=== PATIENT | female | born 1965 | race Caucasian/White ===

== ENCOUNTER 2017-08-07 09:18 | Emergency (ER) | payer BC, OTHER, SELFPAY ==
[2017-08-07 09:41] VITALS: BP 125/71; PULSE 105; RESP 20; TEMP 37.4; O2SAT 96; BMI 30.7
[2017-08-07 09:47] LABS: Apearance,Urine Clear (Clear); Bilirubin,Urine Negative (Negative); Blood, Urine Trace (Negative); Color,Urine Yellow (Yellow); Glucose,Urine (UA) Negative (Negative); Ketones,Urine Negative (Negative); PH,Urine 6.5 (5.0-8.5); Protein,Urine Negative (Negative); Specific Gravity, Urine 1.005 (1.005-1.030); UTC Influenza A Antigen Negative (Negative); UTC Influenza B Antigen Negative (Negative); UTC Leukocyte Esterase,Urine Trace (Negative); UTC Nitrate,Urine Negative (Negative); Urobilinogen,Urine 0.2 EU/dl (0.2)
--- NOTE | 2017-08-07 09:48 | HMH.EDUTC ---
[facility] Disposition Clinical Impression: UTI (urinary tract infection) Qualifiers: Urinary tract infection type: site unspecified Hematuria presence: with hematuria Qualified Code(s): N39.0 - Urinary tract infection, site not specified; R31.9 - Hematuria, unspecified Disposition: Home, Self-Care Condition on Discharge: Good Instructions: Urinary Tract Infection, DI for Urinary Tract Infection (UTI), Cough Additional Instructions: *Increase fluids. Water not Soda or Tea *Start antibiotic immediately and be sure to take as ordered for the FULL length of time although you should start to see improvement over the next 48 hours *Pyridium as needed Remember this medication will turn your urine [place]. This is normal but it will stain what ever it gets on *You should not use Pyridium for more than 48 hours. If so , follow up with your primary physician to review urine culture and ensure that antibiotic is adequate for infection *Be SURE to follow up anytime for new or worsening symptoms. AND in 48 hours for urine culture results AND in 10-14 days to repeat UA to ensure infection is resolved and blood no longer present *Be sure to let your PCP know that we sent urine cultures from the [facility] so they can follow up to ensure that you area the on the correct antibiotic Prescriptions: Dextromethorphan Polistirex [Delsym] 10 ml PO Q12H PRN #200 aristeo.er.12h PRN Reason: Cough Sulfamethoxazole/Trimethoprim [Bactrim DS tablet] 1 each PO BID #20 tablet Referrals: Angel Hrae MD [Primary Care Provider] - Time of Disposition: 10:02 Medical Decision Making Vital Signs: 08/07/17 09:41 Temperature 99.4 F Temperature Source Temporal Artery Scan Pulse Rate [Left Brachial] 105 H Respiratory Rate 20 Blood Pressure [Left Arm] 125/71 Blood Pressure Mean [Left Arm] 89 Blood Pressure Source [Left Arm] Automatic Cuff Blood Pressure Position [Left Arm] Supine 02 Sat by Pulse Oximetry 96 Oxygen Delivery Method Room Air - Lab Data Lab Results 08/07/17 09:42: Urine Color Yellow, Urine Appearance Clear, Urine pH 6.5, Ur Specific [place] 1.005, Urine Protein Negative, Urine Glucose (UA) Negative, Urine Ketones Negative, Urine Blood Trace, Urine Nitrate Negative, Urine Bilirubin Negative, Urine Urobilinogen 0.2, Ur Leukocyte Esterase Trace, Influenza Type A Ag Negative, Influenza Type B Ag Negative - Abraham Inquiry Pt receiving controlled substance: No Abraham was queried for this patient: No [facility] HPI - General Stated complaint: head congestion cough achey Mode of Arrival: Ambulatory Source of Information: Patient Limitations: No Limitations Description of Symptoms (Recalled from Triage Doc. by RN): C/O COUGH, CONGESTION, BODYACHES HEENT Symptoms (Recalled from RN notes): No Resp Symptoms (Recalled from RN notes): Yes (COUGH AND CONGESTION) Skin Symptoms (Recalled from RN notes): No MS Symptoms (Recalled from RN notes): Yes (BODYACHES) Functional Status (Recalled from RN notes): N/A - History of Present Illness Provider Complaint: Patient state that she has been having the feeling of urgency and freqent urination State that she thinks she has a UTI States that she also thinks she may have the flu Having coughing stuffy nose and body aches that began on Saturday and have not improved 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
--- NOTE | 2017-08-07 09:57 | ED_ITS ---
[facility] [place] Clinical Impression: UTI (urinary tract infection) Qualifiers: Urinary tract infection type: site unspecified Hematuria presence: with hematuria Qualified Code(s): N39.0 - Urinary tract infection, site not specified ; R31.9 - Hematuria, unspecified Disposition: Home, Self-Care Condition on Discharge: Good Instructions: Urinary Tract Infection, DI for Urinary Tract Infection (UTI), Cough Additional Instructions: *Increase fluids. Water not Soda or Tea *Start antibiotic immediately and be sure to take as ordered for the FULL length of time although you should start to see improvement over the next 48 hours *Pyridium as needed Remember this medication will turn your urine [place]. This is normal but it will stain what ever it gets on *You should not use Pyridium for more than 48 hours. If so , follow up with your primary physician to review urine culture and ensure that antibiotic is adequate for infection *Be SURE to follow up anytime for new or worsening symptoms. AND in 48 hours for urine culture results AND in 10-14 days to repeat UA to ensure infection is resolved and blood no longer present *Be sure to let your PCP know that we sent urine cultures from the [facility] so they can follow up to ensure that you area the on the correct antibiotic Prescriptions: Dextromethorphan Polistirex [Delsym] 10 ml PO Q12H PRN #200 aristeo.er.12h PRN Reason: Cough Sulfamethoxazole/Trimethoprim [Bactrim DS tablet] 1 each PO BID #20 tablet Referrals: Angel Hare MD [Primary Care Provider] - Time of Disposition: 10:02 Medical Decision Making Vital Signs: 08/07/17 09:41 Temperature 99.4 F Temperature Source Temporal Artery Scan Pulse Rate [Left Brachial] 105 H Respiratory Rate 20 Blood Pressure [Left Arm] 125/71 Blood Pressure Mean [Left Arm] 89 Blood Pressure Source [Left Arm] Automatic Cuff Blood Pressure Position [Left Arm] Supine 02 Sat by Pulse Oximetry 96 Oxygen Delivery Method Room Air - Lab Data Lab Results 08/07/17 09:42: Urine Color Yellow, Urine Appearance Clear, Urine pH 6.5, Ur Specific [place] 1.005, Urine Protein Negative, Urine Glucose (UA) Negative, Urine Ketones Negative, Urine Blood Trace, Urine Nitrate Negative, Urine Bilirubin Negative, Urine Urobilinogen 0.2, Ur Leukocyte Esterase Trace, Influenza Type A Ag Negative, Influenza Type B Ag Negative - Abraham Inquiry Pt receiving controlled substance: No Abraham was queried for this patient: No [facility] [place] - General Stated complaint: head congestion cough achey Mode of Arrival: Ambulatory Source of Information: Patient Limitations: No Limitations Description of Symptoms (Recalled from Triage Doc. by RN): C/O COUGH, CONGESTION , BODYACHES HEENT Symptoms (Recalled from RN notes): No Resp Symptoms (Recalled from RN notes): Yes (COUGH AND CONGESTION) Skin Symptoms (Recalled from RN notes): No MS Symptoms (Recalled from RN notes): Yes (BODYACHES) Functional Status (Recalled from RN notes): N/A - History of Present Illness Provider Complaint: Patient state that she has been having the feeling of urgency and freqent urination State that she thinks she has a UTI States that she also thinks she may have the flu Having coughing stuffy nose and body aches that began on Saturday and have not improved 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
== END 2017-08-07 10:10 | disposition home or self-care (01) ==
PROVIDERS: Emergency Provider Nurse Practitioner; PCP Internal Medicine Adolescent Medicine
DX: N39.0 Urinary tract infection, site not specified (principal); I10 Essential (primary) hypertension; M05.9 Rheumatoid arthritis with rheumatoid factor, unspecified
CPT/HCPCS: 81003; 87804; 99202

== ENCOUNTER → 2017-08-12 16:41 | Outpatient (CLI) | payer BC, OTHER, SELFPAY ==
[2017-08-12 16:46] LABS: Microscopic, Urine URINE MICROSCOPIC (MICROSCOPIC)
[2017-08-12 17:21] LABS: Appearance,Urine Clear (Clear); Color,Urine Yellow (Yellow)
[2017-08-12 17:22] LABS: Bilirubin,Urine Negative (Negative); Blood, Urine Trace (Negative); Glucose,Urine (UA) Negative (Negative); Ketones,Urine Negative (Negative); Leukocyte Esterase,Urine Negative (Negative); Nitrate,Urine Negative (Negative); Protein,Urine Negative (Negative); Specific Gravity, Urine < 1.005 (1.005-1.030); Urobilinogen,Urine 0.2 EU/dl (0.2)
[2017-08-12 18:06] LABS: Bacteria,Urine Trace /lpf; RBC,Urine Occasional #/hpf (0-3)
== END ==
PROVIDERS: PCP Internal Medicine Adolescent Medicine; Visit Provider Internal Medicine Adolescent Medicine
DX: R39.15 Urgency of urination (principal); R10.30 Lower abdominal pain, unspecified
CPT/HCPCS: 81001; 87086

== ENCOUNTER → 2019-02-13 07:04 | Outpatient (CLI) | payer BC, SELFPAY ==
[2019-02-13 08:24] LABS: Albumin Level 3.6 gm/dL (3.4-5.0); Albumin/Globulin Ratio 1.1 (1.1-1.8); Aspartate Amino Transferase 16 U/L (15-37); Globulin 3.2 gm/dl (1.3-3.2); HDL Cholesterol 66 mg/dL (29-89); Total Protein,Serum 6.8 gm/dL (6.4-8.2)
[2019-02-13 08:25] LABS: Chloride 107 mmol/L (98-107)
[2019-02-13 08:36] LABS: Basophils # 0.1 K/mm3 (0-0.2); Basophils % 1.2 % (0.1-2.0); Eosinophils # 0.1 K/mm3 (0.0-0.4); Eosinophils % 3.1 % (0.1-12.0); Hematocrit 40.4 % (37.0-47.0); Hemoglobin 12.8 g/dL (12.2-16.2); Lymphocytes # 1.5 K/mm3 (0.7-4.5); Lymphocytes % 41.6 % (10-50); Mean Corpuscular HGB Conc 31.8 g/dL (31.8-35.4); Mean Corpuscular Hemoglobin 28.9 pg (27.0-31.2); Mean Corpuscular Volume 90.9 fl (81-99); Mean Platelet Volume 7.2 fl (7.4-10.4); Monocytes # 0.2 K/mm3 (0.1-1.0); Monocytes % 6.4 % (1.7-9.3); Neutrophils # 1.8 K/mm3 (1.8-7.8); Neutrophils % 47.6 % (37.0-80.0); Platelet Count 297 K/mm3 (142-424); Red Blood Count 4.45 M/mm3 (4.20-5.40); Red Cell Distribution Width 13.7 % (11.5-17.5); White Blood Count 3.7 K/mm3 (4.8-10.8)
[2019-02-13 08:37] LABS: Alanine Aminotransferase 23 U/L (12-78); Alkaline Phosphatase 113 U/L (46-116); Anion Gap 9.9 mEq/L (5-15); Bilirubin,Total 0.3 mg/dL (0.2-1.0); Blood Urea Nitrogen 11 mg/dL (7-18); Calcium 9.3 mg/dL (8.5-10.1); Carbon Dioxide 28 mmol/L (21.0-32.0); Chol/HDL Ratio 2.6 (1-3.5); Cholesterol 169 mg/dL (140-200); Creatinine,Serum 0.82 mg/dL (0.55-1.02); Estimated Glomerular Filt Rate 73 ml/min (>60); GFR (African American) 88 ML/MIN (>60); Glucose 105 mg/dL (74-106); LDL Cholesterol 85 mg/dL (0-130); Potassium 4.9 mmoL/L (3.5-5.1); Sodium 140 mmol/L (136-145); Triglycerides 91 mg/dL (30-200); VLDL Cholesterol 18 mg/dL (0-40)
[2019-02-14 18:16] LABS: Vitamin B12 334 pg/mL (232-1245); Vitamin D 25 Hydroxy 31.9 ng/mL (30.0-100.0)
== END ==
PROVIDERS: Visit Provider Internal Medicine Adolescent Medicine
DX: I10 Essential (primary) hypertension (principal); E53.8 Deficiency of other specified B group vitamins; M05.759 Rheumatoid arthritis with rheumatoid factor of unspecified hip without organ or systems involvement
CPT/HCPCS: 36415; 80053; 80061; 82607; 82652; 85025

== ENCOUNTER → 2020-04-20 07:07 | Outpatient (CLI) | payer BC, SELFPAY ==
[2020-04-20 10:04] LABS: 25-OH Vitamin D, Total 48.2 ng/mL (30-100)
[2020-04-20 10:38] LABS: Vitamin B12 416 pg/mL (239-931)
[2020-04-21 17:28] LABS: Basophils # 0.1 K/mm3 (0-0.2); Basophils % 1.6 % (0.1-2.0); Eosinophils # 0.1 K/mm3 (0.0-0.4); Eosinophils % 1.6 % (0.1-12.0); Hematocrit 43.2 % (37.0-47.0); Hemoglobin 13.8 g/dL (12.2-16.2); Lymphocytes # 1.6 K/mm3 (0.7-4.5); Lymphocytes % 45.7 % (10-50); Mean Corpuscular HGB Conc 31.8 g/dL (31.8-35.4); Mean Corpuscular Hemoglobin 31.5 pg (27.0-31.2); Mean Platelet Volume 9.4 fl (7.4-10.4); Monocytes # 0.2 K/mm3 (0.1-1.0); Neutrophils # 1.6 K/mm3 (1.8-7.8); Neutrophils % 46.2 % (37.0-80.0); Platelet Count 288 K/mm3 (142-424); Red Blood Count 4.37 M/mm3 (4.20-5.40); White Blood Count 3.6 K/mm3 (4.8-10.8)
[2020-04-21 17:33] LABS: Alanine Aminotransferase 19 U/L (12-78); Albumin Level 4.1 g/dl (3.5-5.0); Albumin/Globulin Ratio 1.6 (1.1-1.8); Alkaline Phosphatase 86 U/L (38-126); Anion Gap 11.6 mEq/L (5-15); Aspartate Amino Transferase 34 U/L (14-36); Bilirubin,Total 0.4 mg/dl (0.2-1.3); Blood Urea Nitrogen 9 mg/dl (7-17); Calcium 9.3 mg/dl (8.4-10.2); Carbon Dioxide 28 mmol/L (22.0-30.0); Chloride 106 mmol/L (98-107); Chol/HDL Ratio 2.2 (1-3.5); Cholesterol 157 mg/dl (140-200); Estimated Glomerular Filt Rate 74 ml/min (>60); GFR (African American) 90 ML/MIN (>60); Globulin 2.6 g/dL (1.3-3.2); Glucose 103 mg/dl (74-100); HDL Cholesterol 71 mg/dl (40-60); Potassium 5.6 mmoL/L (3.5-5.1); Sodium 140 mmol/L (136-145); Total Protein,Serum 6.7 g/dl (6.3-8.2); Triglycerides 93 mg/dl (30-150); VLDL Cholesterol 19 mg/dL (0-40)
[2020-04-21 17:45] LABS: Direct LDL Cholesterol 71.11 mg/dL (100-129)
== END ==
PROVIDERS: Nurse Practitioner Family; Visit Provider Internal Medicine Adolescent Medicine
DX: M05.79 Rheumatoid arthritis with rheumatoid factor of multiple sites without organ or systems involvement (principal); I10 Essential (primary) hypertension; L65.9 Nonscarring hair loss, unspecified
CPT/HCPCS: 36415; 80053; 80061; 82306; 82607; 84443; 85025

== ENCOUNTER → 2020-05-20 11:38 | Outpatient (CLI) | payer BC, SELFPAY ==
[2020-05-20 12:19] LABS: Erythrocyte Sedimentation Rate 18 mm/hr (0-30)
[2020-05-20 13:06] LABS: Iron 84 ug/dL (37-170)
[2020-05-20 13:15] LABS: Total Iron Binding Capacity 363 ug/dL (265-497)
[2020-05-20 13:43] LABS: Ferritin 64.8 ng/ml (11.1-264)
[2020-05-20 15:24] LABS: Folate > 20.00 ng/mL
== END ==
PROVIDERS: Visit Provider Nurse Practitioner Family
DX: M05.79 Rheumatoid arthritis with rheumatoid factor of multiple sites without organ or systems involvement (principal); L65.9 Nonscarring hair loss, unspecified
CPT/HCPCS: 36415; 82728; 82746; 83540; 83550; 85651

== ENCOUNTER 2020-07-18 15:06 | Emergency (ER) | payer BC, SELFPAY ==
[2020-07-18 15:10] VITALS: BP 95/55; PULSE 117; RESP 20; TEMP 36.9; O2SAT 95; BMI 30.7
[2020-07-18 15:15] VITALS: BP 130/80; PULSE 104
[2020-07-18 15:40] LABS: UTC Influenza A Antigen Negative (Negative); UTC Strep Screen (Rapid) Negative (Negative)
[2020-07-18 15:41] LABS: UTC Influenza B Antigen Negative (Negative)
--- NOTE | 2020-07-18 15:44 | HMH.EDUTC ---
[facility] Disposition Clinical Impression: Exposure to COVID-19 virus Disposition: Home, Self-Care Condition on Discharge: Good Instructions: DI for COVID-19 (Suspected or Confirmed ), COVID-19 Viral Test, COVID-19: Testing and Tracing, Preventing the Spread of Coronavirus Discharge Instructions Additional Instructions: *Monitor Temp, Over the counter Motrin or Tylenol as directed/as needed Tylenol every 4 hours and Motrin every 6 hours (as long as your family doctor has told you that you can take it) for fever or pain. and straight to ER if unable to lower temp less than 101.0 after medication given *Warm salt water gargles may help to soothe the throat *Throat Lozenges *Warm fluids like tea with honey may help to soothe the throat *Sleep elevated *Humidifier/Vaporizer Follow up IMMEDIATELY for new or worsening symptoms or no Noticeable improvement over the next 48-72 hours. 911 for difficulty breathing or swallowing You were tested for today for COVID19 your test result should be back in the next 24-48 hours, you may call to the [facility] to see if your test results are back in the next 48 hours [phone] [facility] hours are 9am-9pm You was given a handout with instructions for Self Quarantine and Self isolation for while you wait on test results and what to do if they are positive If you are positive the Health Dept will be contacting you also Referrals: Angel Hare MD [Primary Care Provider] - Time of Disposition: 16:53 Medical Decision Making - Abraham Inquiry Pt receiving controlled substance: No Abraham was queried for this patient: No Vital Signs: 07/18/20 15:10 07/18/20 15:15 07/18/20 16:30 Temperature 98.4 F Temperature Source Oral Pulse Rate Pulse Rate [Right Brachial] 117 H 104 H 94 H Respiratory Rate 20 Blood Pressure Blood Pressure [Right Arm] 95/55 L 130/80 124/92 H Blood Pressure Mean [Right Arm] 68 96 102 Blood Pressure Source [Right Arm] Automatic Cuff Automatic Cuff Automatic Cuff Blood Pressure Position [Right Arm] Sitting Sitting 02 Sat by Pulse Oximetry 95 Oxygen Delivery Method Room Air 07/18/20 16:35 Temperature 98.4 F Temperature Source Pulse Rate 94 H Pulse Rate [Right Brachial] Respiratory Rate 20 Blood Pressure 124/92 H Blood Pressure [Right Arm] Blood Pressure Mean [Right Arm] Blood Pressure Source [Right Arm] Blood Pressure Position [Right Arm] 02 Sat by Pulse Oximetry Oxygen Delivery Method - Lab Data Lab results reviewed: Yes: I reviewed the patient's lab results. Lab Results 07/18/20 15:18: Influenza Type A Ag Negative, Influenza Type B Ag Negative 07/18/20 15:18: Strep Scn Rapid Clinic Negative Orders (Tests/Meds): ED MEDICATIONS Generic Name Dose Route Start Last Admin Trade Name Bertha PRN Reason Stop Dose Admin Sodium Chloride 1,000 mls @ 999 mls/hr 07/18/20 16:00 07/18/20 15:57 Sod Chlor 0.9% 1000ml Bag IV 07/18/20 17:00 999 mls/hr .Q1H1M ALBERTO Administration ORDERS Category Date Time Status Covid-19 Nasal PCR Sendout P&C Stat Lab 07/18/20 15:15 Received Strep Screen Confirmation Stat Micro 07/18/20 15:18 Received Medical Decision Narrative: Ordered fluids infusing patient HR down to 94 Bp 124-92 Patient states that she is feeling a little better [facility] HPI - General Stated complaint: covid test Time Seen by Provider: 07/18/20 15:44 Mode of Arrival: Ambulatory Source of Information: Patient Limitations: No Limitations Description of Symptoms (Recalled from Triage Doc. by RN): PATIENT C/O FEVER, DRY COUGH, AND SORE THROAT. POSSIBLE EXPOSURE TO COVID HEENT Symptoms (Recalled from RN notes): Yes Resp Symptoms (Recalled from RN notes): Yes Skin Symptoms (Recalled from RN notes): No MS Symptoms (Recalled from RN notes): No Functional Status (Recalled from RN notes): WNL - History of Present Illness Provider Complaint: Patient states that she was recently around her grand daughter that recently tested posi
[2020-07-18 16:30] VITALS: BP 124/92; PULSE 94
[2020-07-18 16:35] VITALS: BP 124/92; PULSE 94; RESP 20; TEMP 36.9; O2SAT 95
[2020-07-20 09:11] LABS: Covid-19 Nasal PCR Sendout P&C POSITIVE
--- NOTE | 2020-07-20 09:29 | PC.NURSE ---
patient notified of positive covid test results, patient asked about heart rate being over 100, 107 is the highest, Jerome confirmed that this was normal due to being sick, patient stated understanding
== END 2020-07-18 17:15 | disposition home or self-care (01) ==
PROVIDERS: Emergency Provider Nurse Practitioner; PCP Internal Medicine Adolescent Medicine
DX: U07.1 COVID-19 (principal); I10 Essential (primary) hypertension; R51.9 Headache, unspecified; Z79.899 Other long term (current) drug therapy
CPT/HCPCS: 87804; 87880; 96365; 99202; U0004

== ENCOUNTER → 2020-08-24 13:23 | Outpatient (POV) | payer BC, SELFPAY | DX: Z00.00 Encounter for general adult medical examination without abnormal findings (principal) ==

== ENCOUNTER → 2020-10-24 13:03 | Outpatient (CLI) | payer BC, SELFPAY ==
--- NOTE | 2020-10-24 13:09 | XR_ITS ---
PROCEDURE: XR FOOT LT MIN 3V CLINICAL INDICATION: LT FOOT PAIN COMPARISON: No exams were available for comparison FINDINGS: No acute fractures or dislocations. Bone density is normal. The tarsals, metatarsals and phalanges are unremarkable. No significant soft tissue abnormality. Calcaneal spur is noted. IMPRESSION: Calcaneal spur. Otherwise unremarkable. Dictated by: Irais Maharaj 10/24/2020 13:40 Irais Maharaj in [place] 10/24/2020 13:40
== END ==
PROVIDERS: PCP Internal Medicine Adolescent Medicine; Visit Provider Internal Medicine Adolescent Medicine
DX: M79.672 Pain in left foot (principal)
CPT/HCPCS: 73630

== ENCOUNTER → 2021-01-20 15:25 | Outpatient (CLI) | payer BC, SELFPAY ==
--- NOTE | 2021-01-20 15:29 | XR_ITS ---
PROCEDURE: XR KNEE RT 3V CLINICAL INDICATION: RT ANTERIOR KNEE PAIN COMPARISON: No exams were available for comparison FINDINGS: No fracture or dislocation. No lytic or blastic change. There is normal mineralization. Moderate osteoarthritic changes are present involving the medial compartment and patellofemoral joint. There is a small round calcific density at approximately 4 mm at the interspinous region and could be due to small loose body. Other findings:None. IMPRESSION: Osteoarthritic change with possible small loose Dictated by: Vipin Mckay MD 01/20/2021 15:58 Vipin Mckay MD in [place] 01/20/2021 15:58
== END ==
PROVIDERS: PCP Nurse Practitioner Family; Visit Provider Nurse Practitioner Family
DX: M25.561 Pain in right knee (principal)
CPT/HCPCS: 73562

== ENCOUNTER → 2021-01-27 13:26 | Outpatient (CLI) | payer BC, SELFPAY ==
--- NOTE | 2021-01-27 13:29 | MR_ITS ---
PROCEDURE: MR KNEE RT WO CON CLINICAL INDICATION: RIGHT KNEE PAIN Hx RA. Pain superior to patella. Medial sided knee pain. Pain when bending. Symptoms [id number]. No injury or trauma. Prior x-ray 01/20/21. COMPARISON: CR XR KNEE RT 3V from 01/20/2021 TECHNIQUE: Routine multiplanar multi echo sequences are performed without gadolinium enhancement. FINDINGS: No cruciate ligaments appear intact. Unremarkable collateral ligaments. No definite meniscal tear. There are osteoarthritic changes with decrease in the joint space medially and laterally as well as at the patellofemoral joint. There is moderate to severe thinning of the patellar cartilage with small size knee joint effusion noted. Osteophytes are present at the distal femur and patella and proximal tibia. There is an 8 x 6 mm area of decreased T1 and T2 signal along the posterior aspect of the knee joint. This lies along the posterior and lateral aspect of the medial tibial plateau and may represent a loose body. This is posterior to the base of the posterior cruciate ligament and anterior to the posterior knee joint capsule. This has a lobular appearance and may represent a synovial osteo chondroma. IMPRESSION: 1. No internal derangement apparent. 2. Moderate osteoarthritic changes as detailed above with small knee joint effusion 3. 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
== END ==
PROVIDERS: PCP Nurse Practitioner Family; Visit Provider Nurse Practitioner Family
DX: M25.561 Pain in right knee (principal)
CPT/HCPCS: 73721

== ENCOUNTER → 2021-06-27 10:55 | Outpatient (POV) | payer BC, SELFPAY | PROVIDERS: Visit Provider Dermatology | DX: Z00.00 Encounter for general adult medical examination without abnormal findings (principal) ==

== ENCOUNTER → 2021-08-09 07:05 | Outpatient (CLI) | payer BC, SELFPAY ==
--- NOTE | 2021-08-09 07:09 | XR_ITS ---
FINAL REPORT CLINICAL HISTORY: PAIN IN RIGHT SHOULDER FINDINGS: RIGHT SHOULDER Three views demonstrate no acute fracture or dislocation. There is mild acromioclavicular and glenohumeral joint degenerative change. The visualized bony structures are well aligned. No soft tissue abnormality is seen. IMPRESSION: Mild degenerative changes. Reviewed, Interpreted and Dictated by Lenin Santos III, MD Transcribed by Lupis Gill Authenticated by Lenin Santos III, MD on 08/09/2021 09:56:04 AM [facility]
== END ==
PROVIDERS: PCP Nurse Practitioner Family; Visit Provider Nurse Practitioner Family
DX: M25.511 Pain in right shoulder (principal); G89.29 Other chronic pain
CPT/HCPCS: 73030

== ENCOUNTER → 2021-09-19 11:07 | Outpatient (POV) | payer BC, SELFPAY | PROVIDERS: Visit Provider Dermatology | DX: Z00.00 Encounter for general adult medical examination without abnormal findings (principal) ==

== ENCOUNTER → 2021-09-26 12:53 | Outpatient (CLI) | payer BC, SELFPAY ==
--- NOTE | 2021-09-26 12:59 | MR_ITS ---
FINAL REPORT CLINICAL HISTORY: FAMILY HX OF BRAIN ANEURYSM, HEADACHES PRIOR MRI BRAIN 08-29-16 FINDINGS: Multiple projection images of the brain arterial vasculature were obtained without contrast. The raw data images were also reviewed. The distal internal carotid, distal vertebral and basilar arteries have an unremarkable appearance without evidence of significant stenosis or occlusion. The proximal anterior, middle and posterior cerebral arteries have an unremarkable appearance. There is no evidence of significant stenosis or major branch occlusion. No aneurysm or vascular malformation is identified. IMPRESSION: Unremarkable MR angiogram of the head. Reviewed, Interpreted and Dictated by Lenin Santos III, MD Transcribed by Lupis Gill Authenticated by Lenin Santos III, MD on 09/26/2021 02:09:15 PM [facility]
== END ==
PROVIDERS: PCP Nurse Practitioner Family; Visit Provider Nurse Practitioner Family
DX: Z82.49 Family history of ischemic heart disease and other diseases of the circulatory system (principal)
CPT/HCPCS: 70544

== ENCOUNTER → 2022-12-11 08:46 | Outpatient (POV) | payer BC, SELFPAY | PROVIDERS: Visit Provider Dermatology | DX: Z00.00 Encounter for general adult medical examination without abnormal findings (principal) ==

== ENCOUNTER → 2023-01-08 08:30 | Outpatient (POV) | payer BC, SELFPAY | PROVIDERS: Visit Provider Dermatology | DX: Z00.00 Encounter for general adult medical examination without abnormal findings (principal) ==

== ENCOUNTER 2023-06-16 09:07 | Emergency (ER) | payer OTHER, SELFPAY ==
[2023-06-16 09:25] VITALS: BP 134/98; PULSE 108; RESP 18; TEMP 37.2; O2SAT 96; BMI 31.9
--- NOTE | 2023-06-16 09:30 | EXP.UTC ---
Discharge Plan Disposition Patient Disposition: Home, Self-Care Condition: Good Prescriptions Prescriptions: New azithromycin [Zithromax] 250 mg tablet 250 mg PO UD DOSE PK Qty: 6 0RF Rx Instructions: Take two (2) tablets today, then one (1) tablet days #2 thru #5 benzonatate [benzonatate] 100 mg capsule 100 mg PO TIDP PRN (Reason: Cough) Qty: 30 0RF methylprednisolone 4 mg Tablets,Dose Pack 4 mg PO DIRECTED Qty: 21 0RF Referrals Follow up/Referrals: Goldie Rowan APRN [Primary Care Provider] - See instructions Activity Restrictions/Add. Instructions Additional Instructions/Restrictions: Drink plenty of fluids. Take tylenol or ibuprofen for pain or fever. Take the medications as directed. Follow up with your regular doctor. GO TO THE ER FOR ANY WORSENING SYMPTOMS Clinical Impressions Clinical Impression: Sinusitis Instructions Patient Instructions: Sinusitis, DI for Sinusitis Discharge ED Provider: Jerome Castle [facility] [place] General Stated complaint: SORE THROAT, LT EAR SORE, FEVER Time Seen by Provider: 06/16/23 09:20 History of Present Illness Provider Complaint: She states that for the past 2 weeks she has had sinus congestion. She states that her symptoms are worsening. Related Data Previous Rx's Medication Instructions Recorded azithromycin 250 mg tablet 250 mg PO UD DOSE PK #6 tabs 06/16/23 (Zithromax) benzonatate 100 mg capsule 100 mg PO TIDP PRN Cough #30 caps 06/16/23 methylprednisolone 4 mg tablets in 4 mg PO DIRECTED #21 tabs 06/16/23 a dose pack Allergies Allergy/AdvReac Type Severity Reaction Status Date / Time ciprofloxacin [From CIPRO] Allergy Unknown SEIZURES Verified 06/16/23 09:38 [facility] Disclaimer: The information contained in this section may have been updated after the patient was seen, as this information can be updated by other users. Social History Smoking Status: Never smoker alcohol intake: never current occupational status: other Travel in the last 8 weeks: None ROS Obtained: Yes All systems reviewed & no additional complaints except as documented Constitutional Constitutional: Reports poor appetite Eyes Eyes: Reports system reviewed and no additional complaints, except as documented ENT Ears, Nose, Mouth, and Throat: Reports as per HPI Cardiovascular Cardiovascular: Reports system reviewed and no additional complaints, except as documented and Denies chest pain Respiratory Respiratory: Denies shortness of breath, Denies chest congestion, Reports cough, Denies stridor and Denies wheezing Gastrointestinal Gastrointestingal: Reports system reviewed and no additional complaints, except as documented; Denies abdominal pain, diarrhea or vomiting Musculoskeletal Musculoskeletal: Reports system reviewed and no additional complaints, except as documented and Denies arthralgias Integumentary/Breasts Skin/Breast: Reports system reviewed and no additional complaints, except as documented and Denies rash Neurologic Neurologic: Denies paresthesias Allergic/Immunologic Allergic/Immunologic: Denies wheezing Physical Exam General General appearance: alert and in no apparent distress Eye Eye exam: Present normal appearance, PERRL and EOMI ENT ENT exam: Present mucous membranes moist and normal external ear exam Expanded ENT Exam External ear exam: Present normal external inspection TM/Canal exam: Bilateral TM: erythema and bulging Nose exam: Absent sinus tenderness Nasal speculum exam: Bilateral: normal Mouth exam: Present normal external inspection; Absent drooling Teeth exam: Present normal inspection Throat exam: Present tonsillar erythema and tonsillomegaly Neck Neck exam: Present normal inspection, full ROM and trachea midline; Absent tenderness, lymphadenopathy or thyromegaly Chest Chest inspection: Present normal inspection and symmetric chest wall rise; Absent
[2023-06-16 09:41] LABS: UTC Strep Screen (Rapid) Negative (Negative)
[2023-06-16 10:09] VITALS: BP 134/98; PULSE 108; RESP 18; TEMP 37.2; O2SAT 96
== END 2023-06-16 10:09 | disposition home or self-care (01) ==
PROVIDERS: Emergency Provider Nurse Practitioner Family; PCP Nurse Practitioner Family
DX: J01.90 Acute sinusitis, unspecified (principal); R50.9 Fever, unspecified; R07.0 Pain in throat; H92.02 Otalgia, left ear
CPT/HCPCS: 87880; 99212; 99214; G0463

== ENCOUNTER 2023-06-16 14:56 | Emergency (ER) | payer OTHER, SELFPAY ==
[2023-06-16 14:57] VITALS: BP 146/101; PULSE 116; RESP 20; TEMP 36.9; O2SAT 94; BMI 31.9
--- NOTE | 2023-06-16 15:06 | ECG_ITS ---
APPROVED REPORT Exam: Resting ECG HR:112 bpm ECG Measurements Heart Rate 112 AXES LA 144 P 57 QRSd 103 QRS 26 QT 337 T 57 QTc 403 Conclusion SINUS TACHYCARDIA ABNORMAL RHYTHM ECG UNCONFIRMED REPORT Electronically signed by : Angel Hare MD 06/17/2023 17:28:16
[2023-06-16 15:07] VITALS: BP 146/101; PULSE 108; RESP 18; O2SAT 96
[2023-06-16 15:30] VITALS: BP 145/82; PULSE 108; RESP 20; O2SAT 96
[2023-06-16 15:30] LABS: Influenza A, PCR Not Detected (NotDetected); Influenza B, PCR Not Detected (NotDetected)
[2023-06-16 15:32] LABS: Basophils % 0.5 % (0.1-2.0); Eosinophils % 0.3 % (0.1-12.0); Hematocrit 42.3 % (37.0-47.0); Hemoglobin 14.4 g/dL (12.2-16.2); Lymphocytes # 0.7 K/mm3 (0.7-4.5); Lymphocytes % 12.7 % (10-50); Mean Corpuscular HGB Conc 34.1 g/dL (31.8-35.4); Mean Corpuscular Hemoglobin 31.6 pg (27.0-31.2); Mean Corpuscular Volume 92.8 fl (81-99); Mean Platelet Volume 7.5 fl (7.4-10.4); Monocytes # 0.3 K/mm3 (0.1-1.0); Monocytes % 5.6 % (1.7-9.3); Neutrophils # 4.5 K/mm3 (1.8-7.8); Neutrophils % 80.9 % (37.0-80.0); Platelet Count 245 K/mm3 (142-424); Red Blood Count 4.56 M/mm3 (4.20-5.40); Red Cell Distribution Width 14.2 % (11.5-17.5); White Blood Count 5.6 K/mm3 (4.8-10.8)
[2023-06-16 15:33] LABS: Chloride 99 mmol/L (98-107); Potassium 3.8 mmoL/L (3.5-5.1); Sodium 132 mmol/L (136-145)
[2023-06-16 15:36] LABS: Alanine Aminotransferase 19 U/L (12-78); Albumin Level 4.9 g/dl (3.5-5.0); Albumin/Globulin Ratio 1.6 (1.1-1.8); Alkaline Phosphatase 130 U/L (38-126); Anion Gap 12.8 mEq/L (5-15); Aspartate Amino Transferase 32 U/L (14-36); Bilirubin,Total 0.6 mg/dl (0.2-1.3); Blood Urea Nitrogen 10 mg/dl (7-17); Carbon Dioxide 24 mmol/L (22.0-30.0); Creatinine Clearance Estimated 123 mL/min (50-200); Estimated Glomerular Filt Rate 86 ml/min (>60); GFR (African American) 104 ML/MIN (>60); Globulin 3.1 g/dL (1.3-3.2)
[2023-06-16 15:37] LABS: Glucose 119 mg/dl (74-100)
--- NOTE | 2023-06-16 15:43 | CT_ITS ---
PROCEDURE INFORMATION: Exam: CTA Neck With Contrast Exam date and time: 06/16/2023 4:20 PM Age: 58 years old Clinical indication: Stroke-like symptoms; Headache; Additional info: Neck and back pain. L neck > R TECHNIQUE: Imaging protocol: Computed tomographic angiography of the neck with contrast. Exam focused on the cervical segments of the vasculature. 3D rendering (Not supervised by radiologist): MIP and/or 3D reconstructed images were created by the technologist. Radiation optimization: All CT scans at this facility use at least one of these dose optimization techniques: automated exposure control; mA and/or kV adjustment per patient size (includes targeted exams where dose is matched to clinical indication); or iterative reconstruction. Contrast material: ISOVUE 370; Contrast volume: 100 ml; Contrast route: INTRAVENOUS (IV); REPORTING DATA: Count of CT and Cardiac NM exams in prior 12 months: This patient has received 0 known CTs and 0 known cardiac nuclear medicine studies in the 12 months prior to the current study. COMPARISON: CT ANGIO CHEST PE PROTOCOL 06/16/2023 4:14 PM FINDINGS: Right common carotid artery: No stenosis. No dissection or occlusion. Right internal carotid artery: No stenosis of the extracranial segment. No dissection or occlusion. Right external carotid artery: No occlusion or stenosis of the origin. Left common carotid artery: No stenosis. No dissection or occlusion. Left internal carotid artery: No stenosis of the extracranial segment. No dissection or occlusion. Left external carotid artery: No occlusion or stenosis of the origin. Right vertebral artery: No stenosis. No dissection or occlusion. Left vertebral artery: No stenosis. No dissection or occlusion. Soft tissues: Normal. No significant soft tissue swelling. Bones/joints: No acute fracture. Lungs: Right upper lobe calcified granuloma. IMPRESSION: No stenosis or occlusion. REFERENCES: NASCET CRITERIA. The degree of stenosis in the cervical segment of the internal carotid artery is based on NASCET criteria. Normal is no stenosis. Mild is less than 50% stenosis. Moderate is 50-69% stenosis. Severe is 70% to 99% stenosis. Total occlusion is no detectable patent lumen.
--- NOTE | 2023-06-16 15:43 | CT_ITS ---
PROCEDURE INFORMATION: Exam: CTA Chest With Contrast Exam date and time: 06/16/2023 4:14 PM Age: 58 years old Clinical indication: Other: Back pain in thoracic area; Additional info: Tachy/neck pain/back pain TECHNIQUE: Imaging protocol: Computed tomographic angiography of the chest with contrast. Exam focused on the arteries. 3D rendering (Not supervised by radiologist): MIP and/or 3D reconstructed images were created by the technologist. Radiation optimization: All CT scans at this facility use at least one of these dose optimization techniques: automated exposure control; mA and/or kV adjustment per patient size (includes targeted exams where dose is matched to clinical indication); or iterative reconstruction. Contrast material: ISOVUE 370; Contrast volume: 70 ml; Contrast route: INTRAVENOUS (IV); REPORTING DATA: Count of CT and Cardiac NM exams in prior 12 months: This patient has received 0 known CTs and 0 known cardiac nuclear medicine studies in the 12 months prior to the current study. COMPARISON: CR CXR CHEST(2 VIEWS-NOT PORTABLE) 08/06/2016 7:22 AM FINDINGS: Pulmonary arteries: No pulmonary emboli. Aorta: No aortic aneurysm. No aortic dissection. Lungs: Calcified granuloma in the right upper lobe. No airspace consolidation or nodules. Pleural spaces: No pneumothorax. No pleural effusion. Heart: No cardiomegaly. No pericardial effusion. Mediastinal space: No mediastinal masses. Lymph nodes: Calcified right hilar lymph nodes. Spleen: Spleen has calcified granulomas and no mass or surrounding fluid. Kidneys and ureters: 1.7 cm nonenhancing cyst mid left kidney. Bones/joints: No acute fractures or focal bone lesions. Soft tissues: No soft tissue masses. Other findings: No paraspinal or epidural masses. IMPRESSION: 1. No pulmonary emboli. No aortic aneurysm or intimal dissection. 2. No acute findings in the chest. 3. Prior granulomatous infection. 4. Benign cyst in the mid left kidney measures 1.7 cm. COMMENTS: Consistent with the [employer]'s Incidental Findings Committee white paper (J [employer]iol 2018): Any incidental renal lesion less than 1 cm or classified as too small to characterize, or any incidental cystic renal lesion characterized as simple-appearing, is likely benign. No follow-up imaging is recommended for these lesions per consensus recommendations based on imaging criteria.
--- NOTE | 2023-06-16 15:47 | HMH.EDGENADL ---
Discharge Plan Disposition Patient Disposition: Home, Self-Care Chief Complaint: Arrhythmia/Palpitations Prescriptions Prescriptions: No Action azithromycin [Zithromax] 250 mg tablet 250 mg PO UD DOSE PK Qty: 6 0RF Rx Instructions: Take two (2) tablets today, then one (1) tablet days #2 thru #5 benzonatate [benzonatate] 100 mg capsule 100 mg PO TIDP PRN (Reason: Cough) Qty: 30 0RF methylprednisolone 4 mg Tablets,Dose Pack 4 mg PO DIRECTED Qty: 21 0RF Referrals Follow up/Referrals: Angel Hare MD [Primary Care Provider] - See instructions Activity Restrictions/Add. Instructions Additional Instructions/Restrictions: At this time it was felt you are safe to be discharged home. If new or worsening symptoms please do not hesitate to return the emergency department. If symptoms persist please follow-up with your family doctor as you are able. Clinical Impressions Clinical Impression: COVID-19 Discharge ED Provider: Levon Klein General Adult HPI General Chief complaint: Arrhythmia/Palpitations Stated complaint: HEADACHE, HIGH HEART RATE, VOMITTING, HEADS label rewinder Seen by Provider: 06/16/23 15:15 Mode of Arrival: Ambulatory Source of Information: Patient Limitations: No Limitations Description of Symptoms (Recalled from ER Triage Doc. by RN): seen at [facility] this am for uri s/s and being exposed to sickness at home with family. pt took one dose of antibx at home and came back bc she is feeling worse with bilateral jaw pain, soa, and nausea History of Present Illness HPI narrative: Patient is a 58-year-old female with no chronic medical history who presents emergency department for evaluation of multiple complaints. Patient has positive sick contact with family, over the past few days she has had progressive weakness, myalgias, worst in her back, nausea, bilateral jaw pain, left ear pain. Patient denies chest pain. Active urgent care today she was prescribed azithromycin. She also noticed a rapid heart rate at home. No other acute complaints at this time. Related Data Previous Rx's Medication Instructions Recorded azithromycin 250 mg tablet 250 mg PO UD DOSE PK #6 tabs 06/16/23 (Zithromax) benzonatate 100 mg capsule 100 mg PO TIDP PRN Cough #30 caps 06/16/23 methylprednisolone 4 mg tablets in 4 mg PO DIRECTED #21 tabs 06/16/23 a dose pack Allergies Allergy/AdvReac Type Severity Reaction Status Date / Time ciprofloxacin [From CIPRO] Allergy Unknown SEIZURES Verified 06/16/23 09:38 [facility] Disclaimer: The information contained in this section may have been updated after the patient was seen, as this information can be updated by other users. Social History Smoking Status: Never smoker alcohol intake: never current occupational status: other Travel in the last 8 weeks: None ROS Obtained: Yes Systems reviewed as appropriate & no additional complaints except as documented Physical Exam General General appearance: alert and in no apparent distress Head Head exam: atraumatic and normocephalic Eye Eye exam: Present PERRL and EOMI ENT ENT exam: Present mucous membranes moist Neck Neck exam: Present normal inspection Chest Chest inspection: Present normal inspection and symmetric chest wall rise Respiratory Respiratory exam: Present normal lung sounds bilaterally; Absent respiratory distress Cardiovascular Cardiovascular exam: Present regular rate and normal rhythm Abdominal Exam Abdominal exam: Present soft; Absent tenderness Extremities Exam Extremities exam: Present normal inspection Neurological Exam Neurological exam: Present alert; Absent motor sensory deficit Psychiatric Psychiatric exam: Present normal affect Skin Skin exam: Present warm and dry Medical Decision Making Abraham Inquiry Pt receiving controlled substance: No Vital Signs: 06/16/23 14:57 06/16/23 15:07 06/16/23 15:30 Tem
[2023-06-16 15:57] LABS: Coronavirus 19, PCR Detected (NotDetected)
[2023-06-16 16:00] VITALS: BP 139/82; PULSE 107; RESP 18; O2SAT 96
[2023-06-16 16:03] LABS: Creatine Kinase 119 U/L (30-135)
[2023-06-16 16:17] LABS: Troponin I < 0.01 ng/ml (0.00-0.034)
[2023-06-16 16:21] LABS: Free T4 (Free Thyroxine) 1.02 ng/dl (0.78-2.19)
[2023-06-16 16:34] LABS: Thyroid Stimulating Hormone 0.62 uIU/mL (0.465-4.68)
[2023-06-16 16:37] VITALS: BP 125/63; PULSE 98; RESP 22; O2SAT 92
--- NOTE | 2023-06-16 16:38 | PC.NURSE ---
Pt returned to room from RAD.
--- NOTE | 2023-06-16 17:14 | PC.NURSE ---
Pt ambulatory to bathroom and back to bed. No other needs voiced at this time. Call light within reach.
--- NOTE | 2023-06-16 18:00 | PC.NURSE ---
spoke with radiology awaiting ct results report, per radiology report is not showing up and they talking with vrad right now
--- NOTE | 2023-06-16 18:16 | PC.NURSE ---
pt up to bathroom
--- NOTE | 2023-06-16 18:22 | PC.NURSE ---
Rounded on pt. Advised she was feeling achy at this time. Dr. Klein and Piyush Kurtz RN notified. Pt also provided with drink.
[2023-06-16 18:29] VITALS: BP 113/58; PULSE 92; RESP 18; TEMP 36.7; O2SAT 95
== END 2023-06-16 18:30 | disposition home or self-care (01) ==
PROVIDERS: Emergency Provider Emergency Medicine; PCP Internal Medicine Adolescent Medicine
DX: U07.1 COVID-19 (principal); E87.1 Hypo-osmolality and hyponatremia; R00.0 Tachycardia, unspecified; R51.9 Headache, unspecified; R09.81 Nasal congestion; R11.2 Nausea with vomiting, unspecified; R53.1 Weakness; H92.02 Otalgia, left ear; R68.84 Jaw pain; M54.9 Dorsalgia, unspecified
CPT/HCPCS: 70498; 71275; 80053; 82550; 84439; 84443; 84484; 85025; 87636; 93005; 96361; 96374; 96375; 99285; J0131; J2405; Q9967

== ENCOUNTER 2023-07-23 15:54 | Outpatient (RCR) | payer OTHER, SELFPAY ==
--- NOTE | 2023-07-23 16:09 | XR_ITS ---
PROCEDURE INFORMATION: Exam: XR Left Foot Complete; Alignment Exam date and time: 07/23/2023 4:17 PM Age: 58 years old Clinical indication: Pain; Foot; Left; Additional info: Acute foot pain, left TECHNIQUE: Imaging protocol: Radiologic exam of the left foot. Views: 3 or more views. COMPARISON: CR XR FOOT LT MIN 3V 10/24/2020 1:26 PM FINDINGS: Bones/joints: No evidence of acute fracture or malalignment. Lisfranc joint appears normal. Calcaneal enthesopathy. Soft tissues: Normal. IMPRESSION: 1. No evidence of acute osseous abnormality in the left foot. 2. Calcaneal enthesopathy.
== END 2023-07-23 17:00 | disposition home or self-care (01) ==
LOC: PT 15:54
PROVIDERS: Visit Provider Nurse Practitioner Family
DX: M79.672 Pain in left foot (principal)
CPT/HCPCS: 73630; 97760

== ENCOUNTER 2023-07-30 08:19 | Outpatient (CLI) | payer OTHER, SELFPAY ==
[2023-07-30 08:40] LABS: Basophils # 0.1 K/mm3 (0-0.2); Basophils % 1.4 % (0.1-2.0); Eosinophils # 0.1 K/mm3 (0.0-0.4); Eosinophils % 2.6 % (0.1-12.0); Hematocrit 43.4 % (37.0-47.0); Hemoglobin 14.2 g/dL (12.2-16.2); Lymphocytes # 1.3 K/mm3 (0.7-4.5); Lymphocytes % 33.6 % (10-50); Mean Corpuscular HGB Conc 32.8 g/dL (31.8-35.4); Mean Corpuscular Hemoglobin 31.8 pg (27.0-31.2); Mean Corpuscular Volume 96.9 fl (81-99); Mean Platelet Volume 7.8 fl (7.4-10.4); Monocytes # 0.2 K/mm3 (0.1-1.0); Monocytes % 5.8 % (1.7-9.3); Neutrophils # 2.2 K/mm3 (1.8-7.8); Neutrophils % 56.6 % (37.0-80.0); Platelet Count 279 K/mm3 (142-424); Red Blood Count 4.48 M/mm3 (4.20-5.40); Red Cell Distribution Width 14.6 % (11.5-17.5)
[2023-07-30 09:28] LABS: Alanine Aminotransferase 17 U/L (12-78); Albumin Level 4.2 g/dl (3.5-5.0); Albumin/Globulin Ratio 1.6 (1.1-1.8); Alkaline Phosphatase 112 U/L (38-126); Anion Gap 8.2 mEq/L (5-15); Aspartate Amino Transferase 30 U/L (14-36); Bilirubin,Total 0.6 mg/dl (0.2-1.3); Blood Urea Nitrogen 16 mg/dl (7-17); Calcium 8.7 mg/dl (8.4-10.2); Carbon Dioxide 28 mmol/L (22.0-30.0); Chloride 104 mmol/L (98-107); Chol/HDL Ratio 2.9 (1-3.5); Cholesterol 221 mg/dl (140-200); Estimated Glomerular Filt Rate 86 ml/min (>60); GFR (African American) 104 ML/MIN (>60); Globulin 2.7 g/dL (1.3-3.2); Glucose 103 mg/dl (74-100); HDL Cholesterol 76 mg/dl (40-60); Potassium 4.2 mmoL/L (3.5-5.1); Sodium 136 mmol/L (136-145); Total Protein,Serum 6.9 g/dl (6.3-8.2); Triglycerides 131 mg/dl (30-150); VLDL Cholesterol 26 mg/dL (0-40)
[2023-07-30 09:39] LABS: Direct LDL Cholesterol 105.34 mg/dL (100-129)
[2023-07-30 10:18] LABS: Vitamin B12 264 pg/mL (239-931)
[2023-07-30 15:25] LABS: Hemoglobin A1C 5.4 % (4.0-6.0)
== END 2023-07-30 23:59 ==
LOC: LAB 08:20
PROVIDERS: PCP Nurse Practitioner Family; Visit Provider Nurse Practitioner Family
DX: Z00.00 Encounter for general adult medical examination without abnormal findings (principal); E55.9 Vitamin D deficiency, unspecified; E53.8 Deficiency of other specified B group vitamins
CPT/HCPCS: 36415; 80053; 80061; 82306; 82607; 83036; 84443; 85025

== ENCOUNTER 2023-11-26 13:30 | Outpatient (CLI) | payer OTHER, SELFPAY ==
--- NOTE | 2023-11-26 13:34 | MR_ITS ---
FINAL REPORT TECHNIQUE: Multiplanar MRI without gadolinium enhancement CLINICAL HISTORY: TENDON TEAR. medial sided ankle pain. swelling on lateral side of ankle. no injury or trauma. COMPARISON: None FINDINGS: Articular cartilage: There is a tiny osteochondral lesion in the talar dome measuring 5 mm in size. The remainder of the articular cartilage is unremarkable. Marrow signal: Mild degenerative changes present in the midfoot. There is no evidence of fracture or stress injury. Joint fluid: Physiologic Tendons: No evidence of tear Ligaments: Major ligaments unremarkable Plantar fascia: There is plantar fasciitis with a partial tear of the calcaneal insertion of the plantar fascia. IMPRESSION: No tendinous or ligamentous tears are seen. Plantar fasciitis with a partial insertional tear. Mild degenerative change. Reviewed, Interpreted and Dictated by Piyush Vicente MD Transcribed by Rachael Fink Authenticated and [facility]
== END 2023-11-26 23:59 | disposition home or self-care (01) ==
LOC: RAD 13:30
PROVIDERS: PCP Internal Medicine Adolescent Medicine; Visit Provider Podiatrist Foot & Ankle Surgery
DX: M76.821 Posterior tibial tendinitis, right leg (principal)
CPT/HCPCS: 73721

== ENCOUNTER 2023-12-18 09:32 | Emergency (ER) | payer OTHER, SELFPAY ==
[2023-12-18 10:00] VITALS: BP 153/60; PULSE 99; RESP 21; TEMP 36.8; O2SAT 97; BMI 32.3
--- NOTE | 2023-12-18 10:06 | ED_ITS ---
Discharge Plan Disposition Patient Disposition: Home, Self-Care Condition: Good Prescriptions Prescriptions: New azithromycin [Zithromax] 250 mg tablet 250 mg PO UD DOSE PK Qty: 6 0RF Rx Instructions: Take two (2) tablets today, then one (1) tablet days #2 thru #5 benzonatate 100 mg capsule 100 mg PO TIDP PRN (Reason: Cough) Qty: 30 0RF methylprednisolone 4 mg Tablets,Dose Pack 4 mg PO DIRECTED 6 Days Qty: 21 0RF Rx Instructions: Take 1 pack as directed for 6 days Referrals Follow up/Referrals: Angel Hare MD [Primary Care Provider] - See instructions Activity Restrictions/Add. Instructions Additional Instructions/Restrictions: Drink plenty of fluids. Take tylenol or ibuprofen for pain or fever. Take the medications as directed. Follow up with your regular doctor. GO TO THE ER FOR ANY WORSENING SYMPTOMS Clinical Impressions Clinical Impression: Sinusitis, Bronchitis Instructions Patient Instructions: Sinusitis, DI for Sinusitis Discharge ED Provider: Jerome Castle [facility] General Stated complaint: congestion, cough Time Seen by Provider: 12/18/23 10:06 Related Data Previous Rx's Medication Instructions Recorded azithromycin 250 mg tablet 250 mg PO UD DOSE PK #6 tabs 12/18/23 (Zithromax) benzonatate 100 mg capsule 100 mg PO TIDP PRN Cough #30 caps 12/18/23 methylprednisolone 4 mg tablets in 4 mg PO DIRECTED 6 days #21 tabs 12/18/23 a dose pack Allergies Allergy/AdvReac Type Severity Reaction Status Date / Time ciprofloxacin [From CIPRO] Allergy Unknown SEIZURES Verified 12/18/23 10:12 [facility] Disclaimer: The information contained in this section may have been updated after the patient was seen, as this information can be updated by other users. Social History Smoking Status: Never smoker alcohol intake: never current occupational status: other Travel in the last 8 weeks: None ROS Obtained: Yes All systems reviewed & no additional complaints except as documented Constitutional Constitutional: Reports poor appetite Eyes Eyes: Reports system reviewed and no additional complaints, except as documented ENT Ears, Nose, Mouth, and Throat: Reports as per HPI Cardiovascular Cardiovascular: Reports system reviewed and no additional complaints, except as documented and Denies chest pain Respiratory Respiratory: Denies shortness of breath, Reports chest congestion, Reports cough, Denies stridor and Denies wheezing Gastrointestinal Gastrointestingal: Reports system reviewed and no additional complaints, except as documented; Denies abdominal pain, diarrhea or vomiting Musculoskeletal Musculoskeletal: Reports system reviewed and no additional complaints, except as documented and Denies arthralgias Integumentary/Breasts Skin/Breast: Reports system reviewed and no additional complaints, except as documented and Denies rash Neurologic Neurologic: Denies paresthesias Allergic/Immunologic Allergic/Immunologic: Denies wheezing Physical Exam General General appearance: alert and in no apparent distress Eye Eye exam: Present normal appearance, PERRL and EOMI ENT ENT exam: Present mucous membranes moist and normal external ear exam Expanded ENT Exam External ear exam: Present normal external inspection TM/Canal exam: Bilateral TM: erythema and bulging Nose exam: Absent sinus tenderness Nasal speculum exam: Bilateral: normal Mouth exam: Present normal external inspection; Absent drooling Teeth exam: Present normal inspection Throat exam: Present tonsillar erythema and tonsillomegaly Neck Neck exam: Present normal inspection, full ROM and trachea midline; Absent tenderness, lymphadenopathy or thyromegaly Chest Chest inspection: Present normal inspection and symmetric chest wall rise; Absent tenderness or rash Respiratory Respiratory exam: Present normal lung sounds bilaterally; Absent respiratory distress, wheezes, stridor or accessory muscle use Cardiovascular Cardiovascular exam: Present regular rate, normal rhythm and normal heart sounds Abdominal Exam Abdominal exam: Present soft; Absent distention, tenderness, guarding, rebound or rigidity Extremities Exam Extremities exam: Present normal inspection, full ROM and normal capillary refill; Absent tenderness or calf tenderness Back Exam Back exam: Present normal inspection and full ROM; Absent tenderness Neurological Exam Neurological exam: Present alert and oriented X3 Psychiatric Psychiatric exam: Present normal affect and normal mood Skin Skin exam: Present warm, dry, intact and normal color Lymphatic Lymphatic Findings: no adenopathy Medical Decision Making Medical Records Medical records reviewed: No I reviewed the patient's medical records. Abraham Inquiry Pt receiving controlled substance: No
[2023-12-18] MEDS: DEXAMETHASONE 4MG/ML 1ML VIAL 8 MG IM (10:39)
[2023-12-18 10:51] VITALS: BP 153/60; PULSE 99; RESP 21; TEMP 36.8; O2SAT 97
== END 2023-12-18 10:51 | disposition home or self-care (01) ==
PROVIDERS: Emergency Provider Nurse Practitioner Family; PCP Internal Medicine Adolescent Medicine
DX: J01.90 Acute sinusitis, unspecified (principal); J40 Bronchitis, not specified as acute or chronic; R09.81 Nasal congestion; R05.9 Cough, unspecified; R63.0 Anorexia
CPT/HCPCS: 96372; 99212; 99214; G0463

== ENCOUNTER 2024-01-07 13:32 | Outpatient (CLI) | payer OTHER, SELFPAY ==
--- NOTE | 2024-01-07 13:38 | XR_ITS ---
FINAL REPORT CLINICAL HISTORY: Rt Knee Pain COMPARISON: None FINDINGS: Three views of the right knee reveal no evidence of fracture or dislocation. The bony alignment is normal. There is mild and moderate degenerative change. Medial compartment narrowing is noted. There is no evidence of joint effusion. No localized soft tissue abnormality is identified. IMPRESSION: Degenerative changes without acute abnormality identified. Reviewed, Interpreted and Dictated by Lenin Santos III, MD Transcribed by Izzy Forrest Authenticated and [facility]
== END 2024-01-07 23:59 | disposition home or self-care (01) ==
LOC: RAD 13:32
PROVIDERS: PCP Internal Medicine Adolescent Medicine; Visit Provider Physician Assistant Surgical
DX: M25.561 Pain in right knee (principal)
CPT/HCPCS: 73562

== ENCOUNTER 2024-01-22 07:10 | Outpatient (CLI) | payer OTHER, SELFPAY ==
--- NOTE | 2024-01-22 07:11 | MR_ITS ---
FINAL REPORT TECHNIQUE: Multiplanar MR without contrast CLINICAL HISTORY: Rt Knee Pain, possible cyst on patella FINDINGS: Articular cartilage: Grade 3 chondromalacia patella. Significant thinning of the tibiofemoral cartilage, greatest in the medial compartment. Marrow signal: Few foci of subchondral marrow edema attributing to degenerative change. Otherwise, no bony lesion is seen of the patella. Joint fluid: Small joint effusion. At least 5 tiny joint bodies posteriorly well seen on coronal image 21 of series 3 measuring 1-3 mm. Menisci: Normal morphology without tear Ligaments: Collateral and cruciate ligaments intact There is mild prepatellar bursitis. IMPRESSION: Moderate tricompartment degenerative change. No evidence of patellar lesion. Tiny joint bodies. Reviewed, Interpreted and Dictated by Piyush Vicente MD Transcribed by Lupis Gill Authenticated and [facility]
== END 2024-01-22 23:59 | disposition home or self-care (01) ==
LOC: RAD 07:11
PROVIDERS: PCP Nurse Practitioner Family; Visit Provider Physician Assistant
DX: M25.561 Pain in right knee (principal); M67.461 Ganglion, right knee
CPT/HCPCS: 73721

== ENCOUNTER 2024-02-18 11:59 | Outpatient (CLI) | payer OTHER, SELFPAY ==
[2024-02-18 12:38] LABS: Basophils # 0.1 K/mm3 (0-0.2); Basophils % 1.3 % (0.1-2.0); Eosinophils # 0.1 K/mm3 (0.0-0.4); Eosinophils % 1.8 % (0.1-12.0); Hematocrit 42.5 % (37.0-47.0); Hemoglobin 13.9 g/dL (12.2-16.2); Lymphocytes # 2.1 K/mm3 (0.7-4.5); Lymphocytes % 40.8 % (10-50); Mean Corpuscular HGB Conc 32.7 g/dL (31.8-35.4); Mean Corpuscular Hemoglobin 32.1 pg (27.0-31.2); Mean Corpuscular Volume 98.3 fl (81-99); Mean Platelet Volume 8.1 fl (7.4-10.4); Monocytes # 0.3 K/mm3 (0.1-1.0); Monocytes % 6.2 % (1.7-9.3); Neutrophils # 2.6 K/mm3 (1.8-7.8); Neutrophils % 49.8 % (37.0-80.0); Platelet Count 287 K/mm3 (142-424); Red Blood Count 4.32 M/mm3 (4.20-5.40); Red Cell Distribution Width 14.6 % (11.5-17.5); White Blood Count 5.1 K/mm3 (4.8-10.8)
[2024-02-18 13:00] LABS: Erythrocyte Sedimentation Rate 20 mm/hr (0-30)
[2024-02-18 13:01] LABS: Chloride 107 mmol/L (98-107); Potassium 4.3 mmoL/L (3.5-5.1); Sodium 140 mmol/L (136-145)
[2024-02-18 13:04] LABS: Alanine Aminotransferase 14 U/L (12-78); Albumin/Globulin Ratio 1.4 (1.1-1.8); Alkaline Phosphatase 112 U/L (38-126); Anion Gap 7.3 mEq/L (5-15); Aspartate Amino Transferase 27 U/L (14-36); Bilirubin,Total 0.3 mg/dl (0.2-1.3); Blood Urea Nitrogen 13 mg/dl (7-17); Calcium 9.4 mg/dl (8.4-10.2); Carbon Dioxide 30 mmol/L (22.0-30.0); Estimated Glomerular Filt Rate 73 ml/min (>60); GFR (African American) 89 ML/MIN (>60); Globulin 2.9 g/dL (1.3-3.2); Glucose 86 mg/dl (74-100); Total Protein,Serum 6.9 g/dl (6.3-8.2)
[2024-02-18 13:07] LABS: Hemoglobin A1C 5.3 % (4.0-6.0)
[2024-02-18 13:30] LABS: 25-OH Vitamin D, Total 23.9 ng/mL (30-100)
[2024-02-18 13:34] LABS: Thyroid Stimulating Hormone 1.55 uIU/mL (0.465-4.68)
[2024-02-18 14:09] LABS: Uric Acid 4.3 mg/dl (2.5-6.2)
[2024-02-18 14:59] LABS: Vitamin B12 415 pg/mL (239-931)
[2024-02-19 10:36] LABS: RA Latex Turbid. 258.4 IU/mL (<14.0)
[2024-02-19 16:43] LABS: Anti-Cyclic Citrullinated Pept 6 units (0-19); Sjogren's Anti-SS-A <0.2 AI (0.0-0.9); Sjogren's Anti-SS-B <0.2 AI (0.0-0.9)
[2024-03-16 15:26] LABS: Antinuclear Antibodies (ANA) Negative; Sjogren's Anti-SS-A <0.2; Sjogren's Anti-SS-A Ab Charge YES; Sjogren's Anti-SS-B <0.2; Sjogren's Anti-SS-B Ab Charge YES
== END 2024-02-18 23:59 | disposition home or self-care (01) ==
LOC: LAB 12:00
PROVIDERS: PCP Nurse Practitioner Family; Visit Provider Nurse Practitioner Family
DX: K12.1 Other forms of stomatitis (principal); E53.8 Deficiency of other specified B group vitamins; R52 Pain, unspecified; R76.8 Other specified abnormal immunological findings in serum
CPT/HCPCS: 36415; 80050; 80053; 82306; 82607; 83036; 84443; 84550; 85025; 85651; 86038; 86140; 86200; 86225; 86235; 86431

== ENCOUNTER 2024-09-22 07:13 | Outpatient (CLI) | payer OTHER, SELFPAY ==
[2024-09-22 07:38] LABS: Basophils % 0.9 % (0.1-2.0); Eosinophils # 0.1 K/mm3 (0.0-0.4); Eosinophils % 1.4 % (0.1-12.0); Hematocrit 41.2 % (37.0-47.0); Hemoglobin 13.6 g/dL (12.2-16.2); Lymphocytes # 1.8 K/mm3 (0.7-4.5); Lymphocytes % 41.2 % (10-50); Mean Corpuscular Hemoglobin 30.2 pg (27.0-31.2); Mean Corpuscular Volume 91.4 fl (81-99); Mean Platelet Volume 9.2 fl (7.4-10.4); Monocytes # 0.3 K/mm3 (0.1-1.0); Monocytes % 7.4 % (1.7-9.3); Neutrophils # 2.1 K/mm3 (1.8-7.8); Neutrophils % 48.9 % (37.0-80.0); Platelet Count 235 K/mm3 (142-424); Red Blood Count 4.51 M/mm3 (4.20-5.40); Red Cell Distribution Width 14.1 % (11.5-17.5); White Blood Count 4.3 K/mm3 (4.8-10.8)
[2024-09-22 08:58] LABS: Albumin Level 4.4 g/dl (3.5-5.0); Chloride 103 mmol/L (98-107)
[2024-09-22 08:59] LABS: Potassium 4.6 mmoL/L (3.5-5.1); Sodium 139 mmol/L (136-145)
[2024-09-22 09:01] LABS: Alanine Aminotransferase 16 U/L (12-78); Anion Gap 10.6 mEq/L (5-15); Aspartate Amino Transferase 26 U/L (14-36); Blood Urea Nitrogen 13 mg/dl (7-17); Carbon Dioxide 30 mmol/L (22.0-30.0); Estimated Glomerular Filt Rate 73 ml/min (>60); GFR (African American) 89 ML/MIN (>60)
[2024-09-22 09:02] LABS: Albumin/Globulin Ratio 1.8 (1.1-1.8); Alkaline Phosphatase 114 U/L (38-126); Bilirubin,Total 0.7 mg/dl (0.2-1.3); Calcium 9.2 mg/dl (8.4-10.2); Chol/HDL Ratio 2.2 (1-3.5); Cholesterol 191 mg/dl (140-200); Globulin 2.4 g/dL (1.3-3.2); Glucose 89 mg/dl (74-100); HDL Cholesterol 88 mg/dl (40-60); Total Protein,Serum 6.8 g/dl (6.3-8.2); Triglycerides 77 mg/dl (30-150); VLDL Cholesterol 15 mg/dL (0-40)
[2024-09-22 09:14] LABS: Direct LDL Cholesterol 82.11 mg/dL (100-129)
[2024-09-22 09:20] LABS: Hemoglobin A1C 5.4 % (4.0-6.0)
[2024-09-22 10:11] LABS: Vitamin B12 403 pg/mL (239-931)
[2024-09-24 11:17] LABS: Magnesium 1.7 mg/dl (1.6-2.3)
[2024-09-24 11:48] LABS: Thyroid Stimulating Hormone 1.99 uIU/mL (0.465-4.68)
== END 2024-09-22 23:59 | disposition home or self-care (01) ==
LOC: LAB 07:14
PROVIDERS: PCP Nurse Practitioner Family; Visit Provider Nurse Practitioner Family
DX: E53.8 Deficiency of other specified B group vitamins (principal); E55.9 Vitamin D deficiency, unspecified; M62.838 Other muscle spasm; L67.9 Hair color and hair shaft abnormality, unspecified
CPT/HCPCS: 36415; 80053; 80061; 82306; 82607; 83036; 83735; 84443; 85025

== ENCOUNTER 2024-11-01 07:41 | Emergency (ER) | payer OTHER, SELFPAY ==
[2024-11-01 07:50] VITALS: BP 149/81; PULSE 96; RESP 20; TEMP 36.6; O2SAT 98; BMI 31.4
[2024-11-01 08:00] VITALS: BP 176/101; PULSE 86; O2SAT 97
--- NOTE | 2024-11-01 08:03 | CT_ITS ---
PROCEDURE INFORMATION: Exam: CT Orbits With Contrast Exam date and time: 11/01/2024 8:34 AM Age: 59 years old Clinical indication: Mass, lump, or swelling and other: Previous R periorbital swelling, now R HYLTON; Other: R cheek TECHNIQUE: Imaging protocol: Computed tomography of the orbits with contrast. Radiation optimization: All CT scans at this facility use at least one of these dose optimization techniques: automated exposure control; mA and/or kV adjustment per patient size (includes targeted exams where dose is matched to clinical indication); or iterative reconstruction. Contrast material: ISOVUE; Contrast volume: 75 ml; Contrast route: IV; COMPARISON: CT HEAD/BRAIN WO CON 11/01/2024 8:31 AM FINDINGS: Paranasal sinuses: There is minimal mucoperiosteal reaction in the inferior aspect of the maxillary sinuses Orbital cavities: Orbits are normal. Globes are unremarkable. No intraorbital collection or retrobulbar hematoma. Bones/joints: No acute fracture. Soft tissues: There is soft tissue swelling in the right artery extending through the right inferior lid IMPRESSION: Right periorbital soft tissue swelling.
--- NOTE | 2024-11-01 08:03 | CT_ITS ---
PROCEDURE INFORMATION: Exam: CT Head Without Contrast Exam date and time: 11/01/2024 8:31 AM Age: 59 years old Clinical indication: Other: Previous R periorbital swelling, now R HYLTON TECHNIQUE: Imaging protocol: Computed tomography of the head without contrast. Radiation optimization: All CT scans at this facility use at least one of these dose optimization techniques: automated exposure control; mA and/or kV adjustment per patient size (includes targeted exams where dose is matched to clinical indication); or iterative reconstruction. COMPARISON: MR ANGIO HEAD WO CON 09/26/2021 1:08 PM FINDINGS: Brain: No acute parenchymal hemorrhage. Unremarkable periventricular white matter. There is a small low-attenuation region in the left aspect of the bety which may be related to stroke artifact or a lacunar infarction. No mass effect. Cerebral ventricles: No ventriculomegaly. Paranasal sinuses: Visualized sinuses are unremarkable. No fluid levels. Mastoid air cells: Visualized mastoid air cells are well aerated. Bones: No acute fracture of the calvarium. Soft tissues: Unremarkable. IMPRESSION: No acute intracranial abnormality.
--- NOTE | 2024-11-01 08:05 | HMH.EDGENADL ---
Discharge Plan Disposition Chief Complaint: Skin/Abscess/Foreign Body Prescriptions Prescriptions: No Action methylprednisolone 4 mg tablets,dose pack See Rx Instructions PO PER PKG DIR Qty: 21 0RF Rx Instructions: PO PER PKG DIR Nurtec ODT 75 mg tablet,disintegrating 75 mg PO DAILY PRN Patient Comments: DISSOLVE ONE TABLET in MOUTH EVERY DAY NEEDED FOR migraine Referrals Follow up/Referrals: Goldie Rowan APRN [Primary Care Provider] - See instructions Instructions Patient Instructions: DI for Skin Abscess Print Language Print Language: Syriac Discharge ED Provider: Levon Klein General Adult HPI General Chief complaint: Skin/Abscess/Foreign Body Stated complaint: swelling in face body ache headache Time Seen by Provider: 11/01/24 07:45 Mode of Arrival: Ambulatory Source of Information: Patient and Spouse Description of Symptoms (Recalled from ER Triage Doc. by RN): pt was stung a week ago by wasp on right eyebrow, went to [facility] on saturday given steroid pack and finsihed it yesterday, today the swelling came back adn got a little worse in periorbital area, pt has RA but on no meds for it. History of Present Illness HPI narrative: Patient is a 59-year-old female with past medical history of rheumatoid arthritis not currently on immunosuppressive therapy who presents to the emergency department for evaluation of right facial swelling. History is obtained by patient at bedside. She was stung by a wasp approximately a week ago in her right superolateral orbital area and presented to urgent care was prescribed steroids for which the resultant periorbital edema which has waxed and waned throughout the week and largely resolved however over the last 24 hours she has had some edema settle down into her cheek with redness causing her to become concerned. There is an associated right-sided Crow calvarial headache, no vision changes. She has a history of migraines but these are little bit different and hard to characterize. No photophobia. No vomiting. No new trauma. No other acute complaints at this time. Please note that above description of symptoms, in this electronic medical record under categorization of recalled from ER triage doctor by RN are reflective of an initial nursing assessment, however, is not reflective of my full history and physical exam that was personally taken and clarified. Consequentially, this preceding description of symptoms, which may include the patient's categorized chief complaint in the EMR, do not reflect my personal clinical impression, and the ultimate description of history of present illness and patient stated complaints should be deferred to this section of the note. Unless stated otherwise or congruent with this section of the note, additional signs, symptoms, or incongruence should be interpreted as inaccurate with my clinical impression. Related Data Home Medications ?Medication ?Instructions ?Recorded ?Confirmed rimegepant 75 mg disintegrating 75 mg PO DAILY PRN 01/29/24 10/26/24 tablet (Nurtec ODT) Previous Rx's ?Medication ?Instructions ?Recorded methylprednisolone 4 mg tablets in See Rx Instructions PO PER PKG DIR 10/26/24 a dose pack #21 tabs Allergies Allergy/AdvReac Type Severity Reaction Status Date / Time ciprofloxacin (From CIPRO) Allergy Unknown SEIZURES Verified 10/26/24 08:07 [facility] Disclaimer: The information contained in this section may have been updated after the patient was seen, as this information can be updated by other users. Social History Smoking Status: Never smoker alcohol intake: never current occupational status: other Travel in the last 8 weeks: None Have you lived/traveled outside [place] in past 30 days?: No Contact w/someone who lives/traveled outside US past 30 days?: No Exposure to someone with infectious disease in past 14 days?: No Do you have a fever (greater than 100.4 F or 38 C)?: No Have you tested positive for COVID-19: No Exposed to someone with COVID-19 in past 14 days?: No Do you have a sore throat?: No Do you have a cough?: No Do you have any weakness?: No Do you have any diarrhea?: No Are you experiencing any unusual bleeding?: No Do you have any muscle aches/pain?: Yes Do you have any abdominal pain?: No Are you experiencing loss of taste or smell?: No Other Medical History Have you received the Flu Vaccine for this season: Yes Have you received the Pneumonia Vaccine: No ROS Obtained: Yes Systems reviewed as appropriate & no additional complaints except as documented Physical Exam General General appearance: alert and in no apparent distress Head Head exam: atraumatic, normocephalic and other (Mild infraorbital and right-sided cheek edema. Erythema over the superior cheek. No exophthalmos no circumferential periorbital edema or redness.) Eye Eye exam: Present PERRL and EOMI ENT ENT exam: Present mucous membranes moist and other (No trismus) Neck Neck exam: Present normal inspection Chest Chest inspection: Present normal inspection and symmetric chest wall rise Respiratory Respiratory exam: Present normal lung sounds bilaterally; Absent respiratory distress Cardiovascular Cardiovascular exam: Present regular rate and normal rhythm Abdominal Exam Abdominal exam: Present soft Extremities Exam Extremities exam: Present normal inspection Neurological Exam Neurological exam: Present alert and CN II-XII intact; Absent motor sensory deficit Psychiatric Psychiatric exam: Present normal affect Skin Skin exam: Present warm and dry Medical Decision Making Medical Records Screening: Per USPSTF and CDC recommendations, given the prevalence of disease in our region, it is our hospital?s policy to screen for HIV and viral Hepatitis for all patients aged 18 and over and those with ongoing risk factors. Abraham Inquiry Pt receiving controlled substance: No Vital Signs: 11/01/24 07:50 11/01/24 08:00 11/01/24 08:45 Temperature 97.8 F Temperature Source Oral Pulse Rate 86 82 Pulse Rate [Left Radial] 96 H Respiratory Rate 20 Blood Pressure 176/101 H Blood Pressure [Right Arm] 149/81 H Blood Pressure Mean [Right Arm] 103 02 Sat by Pulse Oximetry 98 97 98 Oxygen Delivery Method Room Air Room Air Room Air Lab Data Lab Results 11/01/24 08:10: WBC 6.8, RBC 4.45, Hgb 13.9, Hct 41.2, MCV 92.6, MCH 31.2, MCHC 33.7, RDW 14.6, Plt Count 284, MPV 9.2, Neut % (Auto) 56.8, Lymph % (Auto) 32.4, Stark % (Auto) 7.7, Eos % (Auto) 1.8, Baso % (Auto) 0.7, Neut # (Auto) 3.9, Lymph # (Auto) 2.2, Stark # (Auto) 0.5, Eos # (Auto) 0.1, Baso # (Auto) 0.1, Sodium 139, Potassium 3.7, Chloride 106, Carbon Dioxide 26, Anion Gap 10.7, BUN 15, Creatinine 0.60, Estimated Creat Clear 139, Estimated GFR 102, Est GFR ( Amer) 123, Glucose 91, Calcium 8.6, Total Bilirubin 0.7, AST 25, ALT 18, Alkaline Phosphatase 91, C-Reactive Protein 4.0, Total Protein 6.5, Albumin 3.7, Globulin 2.8, Albumin/Globulin Ratio 1.3 11/01/24 08:10 11/01/24 08:10 Orders (Tests/Meds): ED MEDICATIONS Discontinued Medications Generic Name Dose Route Start Last Admin Trade Name Bertha PRN Reason Stop Dose Admin Acetaminophen 1,000 mg 11/01/24 08:03 11/01/24 08:18 Acetaminophen 1,000mg/100ml Vial IV 11/01/24 08:04 1,000 mg ONCE ONE Administration Diphenhydramine HCl 25 mg 11/01/24 08:03 11/01/24 08:18 Diphenhydramine 50mg/Ml Vial IV 11/01/24 08:04 25 mg ONCE ONE Administration Lactated Ringer's 1,000 mls @ 999 mls/hr 11/01/24 08:03 11/01/24 08:18 Lactated Ringer's 1000 Ml Bag IV 11/01/24 09:03 999 mls/hr .Q1H1M ONE Administration Iopamidol 75 ml 11/01/24 08:42 11/01/24 08:42 Iopamidol-370 (76%);100ml Bottle IV 11/01/24 08:43 75 ml ONCE ONE Administration Prochlorperazine Edisylate 5 mg 11/01/24 08:03 11/01/24 08:19 Prochlorperazine 10mg/2ml Vial IV 11/01/24 08:04 5 mg ONCE ONE Administration Sodium Chloride 10 ml 11/01/24 08:42 11/01/24 08:42 Sodium Chloride 0.9% 10ml Syr (Rad Only) IV 11/01/24 08:43 10 ml ONCE ONE Administration Trimethoprim/Sulfamethoxazole 1 each 11/01/24 08:03 11/01/24 08:18 Sulfa/Trimethoprim 1 Tablet PO 11/01/24 08:04 1 each ONCE ONE Administration ORDERS Category Date Time Status CT head/brain wo con Stat Cat Scan 11/01/24 08:[address] orbit BI w con Stat Cat Scan 11/01/24 08:03 Completed CBC w/Auto Diff [Complete Blood Count Auto Diff] Stat Lab 11/01/24 08:10 Completed CMP [Comprehensive Metabolic Panel] Stat Lab 11/01/24 08:10 Completed CRP [C-Reactive Protein] Stat Lab 11/01/24 08:10 Completed Medical Decision Narrative: In summary patient is a 59-year-old female with past medical history described above presents emergency department for evaluation of headache and facial redness in the setting of previous wasp sting. Patient is hemodynamically stable and nontoxic-appearing upon arrival, afebrile. The erythema on her cheek and edema on the cheek and infraorbital area is mild, no circumferential erythema or edema around the eye to suggest preseptal cellulitis however it was previously significantly swollen. There is a possibility of secondary infection with orbital cellulitis although less likely because no exophthalmos no vision changes. She also has a history of previous migraines which she may be having an atypical presentation of to explain her headache however workup will be conducted with hematologic labs, CT orbits with IV contrast, noncontrasted CT scan of the head. Initial interventions include headache cocktail. Bactrim will be given as I think the edema in her cheek and erythema is largely the inflammatory response that is settling out however superimposed cellulitis is difficult to exclude. Workup reviewed by me, hematologic labs are nonactionable no significant leukocytosis or anemia no MANINDER or critical electrolyte abnormality, normal CRP. CT imaging remarkable for periorbital edema on the right no evidence of orbital cellulitis or retrobulbar or fluid collection. CT head normal. Upon repeat evaluation patient had resolving headache. Given this patient is appropriate for discharge at this time will be discharged with a course of Bactrim and was given multiple return precautions verbalized understanding. Critical Care Critical Care Time Critical Care Time: No
[2024-11-01] MEDS: ACETAMINOPHEN 1,000MG/100ML VIAL 1000 MG IV (08:18)
[2024-11-01] MEDS: diphenhydrAMINE 50MG/ML VIAL 25 MG IV (08:18)
[2024-11-01] MEDS: SULFA/TRIMETHOPRIM 1 TABLET 1 EACH PO (08:18)
[2024-11-01] MEDS: LACTATED RINGERS 1000ML 1,000 ML 999 ML IV (08:18)
[2024-11-01] MEDS: PROCHLORPERAZINE 10MG/2ML VIAL 5 MG IV (08:19)
[2024-11-01 08:24] LABS: Basophils # 0.1 K/mm3 (0-0.2); Basophils % 0.7 % (0.1-2.0); Eosinophils # 0.1 K/mm3 (0.0-0.4); Eosinophils % 1.8 % (0.1-12.0); Hematocrit 41.2 % (37.0-47.0); Hemoglobin 13.9 g/dL (12.2-16.2); Lymphocytes # 2.2 K/mm3 (0.7-4.5); Lymphocytes % 32.4 % (10-50); Mean Corpuscular HGB Conc 33.7 g/dL (31.8-35.4); Mean Corpuscular Hemoglobin 31.2 pg (27.0-31.2); Mean Corpuscular Volume 92.6 fl (81-99); Mean Platelet Volume 9.2 fl (7.4-10.4); Monocytes # 0.5 K/mm3 (0.1-1.0); Monocytes % 7.7 % (1.7-9.3); Neutrophils # 3.9 K/mm3 (1.8-7.8); Neutrophils % 56.8 % (37.0-80.0); Platelet Count 284 K/mm3 (142-424); Red Blood Count 4.45 M/mm3 (4.20-5.40); Red Cell Distribution Width 14.6 % (11.5-17.5); White Blood Count 6.8 K/mm3 (4.8-10.8)
--- NOTE | 2024-11-01 08:30 | PC.NURSE ---
Pt to ct scan via wheelchair
[2024-11-01 08:35] LABS: Carbon Dioxide 26 mmol/L (22.0-30.0); Chloride 106 mmol/L (98-107); Potassium 3.7 mmoL/L (3.5-5.1); Sodium 139 mmol/L (136-145)
[2024-11-01 08:36] LABS: Alanine Aminotransferase 18 U/L (12-78); Albumin Level 3.7 g/dl (3.5-5.0); Albumin/Globulin Ratio 1.3 (1.1-1.8); Alkaline Phosphatase 91 U/L (38-126); Anion Gap 10.7 mEq/L (5-15); Aspartate Amino Transferase 25 U/L (14-36); Bilirubin,Total 0.7 mg/dl (0.2-1.3); Blood Urea Nitrogen 15 mg/dl (7-17); Calcium 8.6 mg/dl (8.4-10.2); Creatinine Clearance Estimated 139 mL/min (50-200); Estimated Glomerular Filt Rate 102 ml/min (>60); GFR (African American) 123 ML/MIN (>60); Globulin 2.8 g/dL (1.3-3.2); Glucose 91 mg/dl (74-100); Total Protein,Serum 6.5 g/dl (6.3-8.2)
[2024-11-01] MEDS: SODIUM CHLORIDE 0.9% 10ML SYR (RAD ONLY) 10 ML IV (08:42)
[2024-11-01] MEDS: IOPAMIDOL-370 (76%);100ML BOTTLE 75 ML IV (08:42)
[2024-11-01 08:45] VITALS: PULSE 82; O2SAT 98
[2024-11-01 09:16] VITALS: BP 154/88; PULSE 75; RESP 20; TEMP 36.8; O2SAT 98
--- OUTSIDE RECORDS SUMMARY | 2024-11-05 19:58 | XMS_ITS ---
Author Organization [facility] Address [address] [place] [address] Phone Care Team Providers Care Production Line Worker Name Role Phone Ankush DUONG, Javier Abarca Unavailable + [phone] Problems Includes: Active, inactive, and resolved Problems All Visits Onset Date Resolved Date Provider Condition S tatus Joint Pain in the Right Knee 06/23/2024 French Moreau PA-C Active Last Documented On 4 11:14AM ; [facility] Plan of Treatment Future Appointments Date Time Location Provi muna INJECTION 11/27/2024 8:00AM [facility] PS C French Moreau PA-C Last Documented On 5 10:25AM ; [facility] Instructions to patient Lose weight Last Documented On 4 11:22AM ; [facility] Assessments Includes: Assessments for all patient encounters Findings Encounter Date Overweight Physician Specified with French Moreau PA-C 06/23/2024 Last Documented On 4 1:05PM ; [facility] Instructions Includes: Instructions for all patient encounters Instructions to patient Lose weight Last Documented On 4 11:22AM ; [facility] Medical Equipment - Implanted Devices Includes: Current and historical Devices No Medical Equipment Recorded Medications Includes: Current and historical Medications Current Medications (continue as prescribed) Fluconazole 150 MG Oral Tablet 06/12/2024 Provider: TIFFANY PERRIN MD Diagnosis: Last Documented On 4 11:19AM By Esther Galeas ; [facility] Past Medications on file Diclofenac Sodium 75 MG Oral Tablet Delayed Release 06/24/2024 - 07/24/2024 Provider: French Moreau PA-C Diagnosis: twice a day Last Documented On 4 2:25PM By Jackie Juarez ; [facility] Medications Administered Includes: Administered Medications in patient's chart No Administered Medications Recorded Vital Signs Includes: Vital Signs from 11/06/2023 through 11/05/2024 Vital Name 06/23/2024 11:22A Height (in) 65 Weight (lb) 205 Body Mass Index 34.1 Body Surface Area 2 Note: ab Last Documented: On 06/23/2024 11:22A M ; [facility] Results Includes: Results from 11/06/2023 through 11/05/2024 No Results Recorded For Specified Dates History of Present Illness History of Present Illness not supported for this document type No History of Present Illness Recorded Social History Description Last Updated Caffeine use 06/23/2024 Last Documented On 4 1:05PM ; [facility] No recent change in diet 06/23/2024 Last Documented On 4 1:05PM ; [facility] Not a current smoker. 06/23/2024 Last Documented On 4 1:05PM ; [facility] Not exercising regularly 06/23/2024 Last Documented On 4 1:05PM ; [facility] Not using alcohol 06/23/2024 Last Documented On 4 1:05PM ; [facility] Not using drugs 06/23/2024 Last Documented On 4 1:05PM ; [facility] Smoking Status Unknown Procedures and Surgical History Includes: Procedures from 11/06/2023 through 11/05/2024 Procedures Code Diagnosis Performing Provider Service Location Service Date DRAIN/INJECT, JOINT/BURSA (RIGHT) Unilateral primary osteoarthritis, right knee French Moreau PA-C [facility] 08/26/2024 Last Documented On 5 11:28AM ; [facility] Triamcinolone/Kenalog, 10mg per cc [id number] Unilateral primary osteoarthritis, right knee French Moreau PA-C [facility] 08/26/2024 Last Documented On 5 11:28AM ; [facility] X-RAY EXAM KNEE 4 OR MORE (RIGHT) 34630 Unilateral primary osteoarthritis, right knee French Moreau PA-C [facility] 06/23/2024 Last Documented On 4 1:37PM ; [facility] Medical History Includes: Medical History in patient's chart Description Last Updated History of arthritis 06/23/2024 Last Documented On 4 1:05PM ; [facility] Family History Includes: Family History in patient's chart Description Last Updated Family history of systemic hypertension 06/23/2024 Last Documented On 4 1:05PM ; [facility] Review of Systems Review of Systems not supported for this document type No Review of Systems Recorded Mental Status No Mental Status Recorded Functional Status No Functional Status Recorded Physical Exam Physical Exam not supported for this document type No Physical Exam Recorded Allergies Includes: Active, inactive, and resolved Allergies No Known Allergies Encounters Includes: Encounters from 11/06/2023 through 11/05/2024 Encounter Provider Location Date Check-In Time Check-Out Time Diagnosis INJECTION French Moreau PA-C [facility] 08/26/19 25 10:33AM 10:59AM Physician Specified French Moreau PA-C [facility] 06/23/20 24 10:39AM 12:45PM Overweight Insurance Includes: Active Insurance Policies Plan Name Member ID Group # Subscriber Relationship Effect edward Dates 1 - [facility] [id number] Audrey Acosta Self Clinical Notes Includes: Signed Clinical Notes starting from 07/12/2022 * Progress note Date Encounter Last Documented by 06/23/2024 Physician Specified Last genevieve haywood on 07/09/2024; 1:05 PM, French Moreau PA-C; [facility] Active Problems & Conditions - Joint Pain in the Right Knee Subjective Which knee or hip hurts the most? Where on the hip or knee?rt knee pain center of the knee,pain when walking and bending the knee Have you had prior knee or hip surgery?no What medicines have you taken for the pain?ibuprofen What injections have you tried for the pain?cortisone 2 weeks ago a little bit of relief Do you need a cane or walker to ambulate?no Have you improved your shoes or tried a brace?brace and sleeve and they have not helped Have you tried to lose weight?no Chief Complaint The Chief Complaint is: Rt knee pain. Referred Here Referred by. History of Present Illness Audrey Acosta is a 59 year old female. - Allergy list reviewed - Problem list reviewed - Medication list reviewed - Yes, previous treatment. - History of Injections - - Review of medications documented Current Medication - Fluconazole 150 MG Oral Tablet 1 days, 0 refills Past Medical/Surgical History Diagnoses: Arthritis Social History Not a current smoker. Current diet: No recent change in diet. Caffeine use: Caffeine use. Alcohol: Not using alcohol. Drug Use: Not using drugs. Habits: Not exercising regularly. Allergies - No Known Allergies Family History Systemic hypertension Review Of Systems Systemic: Not feeling tired, no recent weight loss, and no recent weight gain. Head: No headache and no sinus pain. Eyes: No vision problems and no Cataracts. Glasses/Contacts. No Glaucoma. Otolaryngeal: No hearing loss and no tinnitus. Cardiovascular: No chest pain or discomfort, no palpitations, no Hypertension, and no High Cholesterol. Pulmonary: No daytime asthma symptoms and no chronic cough. No wheezing. Gastrointestinal: No heartburn and no abdominal pain. No Indigestion, no Peptic Ulcer, no GI Stomach Bleed, and no Ulcers. Acid Reflux. Endocrine: No hot flashes, no muscle weakness, no Diabetes, no Hypothyroid, and no Hyperthyroid. Hematologic: No easy bleeding, no tendency for easy bruising, and no Anemia. Musculoskeletal: No Arthritis and no lower back pain. No soft tissue swelling. Pain localized to one or more joints. Neurological: No dizziness, no convulsions, and no numbness. Psychological: No anxiety, no emotional lability, no depression, and no insomnia. Not crying for no reason. Skin: No dry skin. No Ulcers, no Scars, and no rash. Allergic and Immunologic: No complaint of seasonal allergic reaction. Physical Findings - Vitals taken 06/23/2024 11:22 am ab Height 65 in Weight 205 lbs Body Mass Index 34.1 kg/m2 Body Surface Area 2 m2 Patient alert and oriented x3 Moderately overweight Normal gait Right hip motion normal Right knee exam Skin clean, dry and intact mild knee swelling, mild effusion Knee Extension 0- Knee Flexion 140- Severe MJT, [severe LJT, [No] Pes Tenderness Strength [5/5] TA, [5/5] Gastroc, [5/5] Quad Sensation intact to light touch throughout Palpable pulses DP/PT Tests Four view x-ray right knee taken today demonstrates severe medial compartment DJD with less than 1 mm joint space remaining, cortical irregularity MFC Assessment - Overweight Severe right knee medial compartment DJD Previous Tests Imaging: X-Ray: An X-ray was performed. MRI Scan: An MRI was performed. Counseling/Education - Tobacco non-user - Use of tobacco assessment performed - Lose weight Plan StartCited - Other Diclofenac Sodium 75 MG tablet twice a day, 30 days, 0 refills EndCited Patient presents today for evaluation of right medial-sided knee pain onset approximately 7 months ago after wearing boot for foot condition. Had injection couple of weeks ago which is moderately beneficial. We discussed continued anti-inflammatories, knee sleeve, weight loss strategies good shoes activity modification can follow up p.r.n. for injection Notes This dictation was done with voice recognition software and may contain errors and omissions.
--- OUTSIDE RECORDS SUMMARY | 2024-11-05 19:58 | XMS_ITS | Data Portability ---
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 Migraine, better on Aimovig needs increase to Aimovig 140 mg per month Plan: 1. change to Aimovig 140 mg injection [email or web address] Not available 12/23/2018 20:09:29 09/16/2019 09/16/2019 Assessment: 1. migraine 2. Great responder to Aimovig 3. Follows with Dr. Tremaine Perrin in [place] Plan: 1. Continue Aimovig 2. renew and continue current medications 3. Start ondansetron 4 mg tablet as directed 4. follow-up in 6 months [email or web address] Not available 09/18/2019 13:46:47 Plan of Treatment Reminders Order Date Submit Date Provider Last Modified By Organization Details Last Modified Time Details Appointments None recorded. Lab CBC w/ auto diff 2023 024 [email or web address] [facility], [address] [place] [address], [id number], 4 08:24:18 CMP, serum or plasma 2023 024 [email or web address] [facility], [address] [place] [address], [address], 4 08:24:18 ESR (erythrocyt e sedimentati on rate), blood [address] [facility], [address] [place] [address], [id number], 4 08:24:19 C reactive protein, QN, serum or plasma [address] [facility], [address] [place] [address], [address], 4 08:24:19 ccp (cyclic citrullinat ed peptide) iga+igg, serum 2023 [facility], [address] [place] [address], [address], 4 19:39:01 PEDRO (antinuclea r antibodies) titer + pattern, ifa, serum [address] [facility], [address] [place] [address], [address], 4 08:12:19 PEDRO (antinuclea r antibodies) panel, serum 2023 [facility], [address] [place] [address], [id number], 4 17:07:34 C reactive protein, QN, serum or plasma 2023 [facility], [address] [place] [address], [address], 4 16:10:48 ESR (erythrocyt e sedimentati on rate), blood 2023 [facility], [address] [place] [address], [address], 4 16:16:54 Referral None recorded. Procedures None recorded. Surgeries None recorded. Imaging XR, chest, 2 view 2023 024 [facility], [address] [facility] [address], [place], [address], 4 15:20:28 Medication Orders Compound Magic Mouthwash #10 (Diphenydra mine/Nystat in/Maalox/L idocaine 1:1:1:1) 2024 025 [facility], [address] [place] [address] [address], [id number], 5 09:01:24 leflunomide 20 mg tablet 2023 024 [email or web address] [facility], [address] [place] [address] [address], [id number], 5 08:19:23 prednisone 5 mg tablet 2023 024 [facility], [address] [place] [address] [address], [id number], 4 13:17:56 prednisone 5 mg tablet 2023 024 [facility], [address] [place] [address] [address], [id number], 4 09:17:04 hydroxychlo roquine 200 mg tablet [address] [facility], [address] [place] [address] [address], [id number], 4 08:27:24 ondansetron HCl 4 mg tablet [address] [facility], [address] [place] [address] [address], [id number], 4 08:27:51 tramadol 50 mg tablet [address] [facility], [address] [place] [address] [address] [place], [id number], 4 08:27:35 sumatriptan 100 mg tablet [address] [facility], [address] [place] [address] [address] [place], [id number], 4 08:27:48 tramadol 50 mg tablet [address] [facility], [address] [place] [address] [address] [place], [id number], 4 08:27:35 Aimovig Autoinjecto r 140 mg/mL subcutaneou s auto-inject or [address], [address] [place] [address] [address] [place], [id number], 4 08:27:46 Patient TargetsNo targets recorded. Patient Instructions Encounter Date Encounter Id Patient Instructions Last Modified By Organization Details Last Modified Time 12/23/2018 [id number] migraine aura without a headache: care instructions [email or web address] Not available 12/25/2018 10:26:05 Spent {{35# }} total minutes with the patient today. Greater than 50% of this time was spent counseling/coordi nation of care as documented in my assessment and plan above. [email or web address] Not available 12/23/2018 20:10:21 09/16/2019 [id number] nausea and vomiting: care instructions [email or web address] Not available 09/17/2019 13:11:21 migraine aura without a headache: care instructions Not available 09/17/2019 13:11:21 eating healthy foods: care instructions [email or web address] Not available 09/17/2019 13:11:21 Reason for Referral None Reported. Results Created Date Observation Date Name Description Value Unit Range Abnormal Flag Note LastModifiedBy Organization Detail LastModifiedTime 03/18/20 24 03/18/2024 C REACT AYALA PROTE IN C reactive protein 0.32 mg/dL 0.00-0 .49 normal Not Available [facility] [address] [place] [address], [id number], 03/18/2024 16:10:48 03/18/20 24 03/18/2024 ESR, AUTOM ATED ESR, automated 7 mm 0-29 normal Not Available [facility] [address] [place], [address], 03/18/2024 16:16:54 03/18/20 24 03/20/2024 PEDRO W/ REFLE X PEDRO screen NEGATI VE negati ve normal PEDRO IFA is a first line scree n for detec ting the prese nce of up to appro ximat rohit 150 autoa ntibo dies in vario us autoi mmune disea ses. A negat ayala PEDRO IFA resul t sugge sts an PEDRO-a ssoci ated autoi mmune disea se is not prese nt at this time, but is not defin itive . If there is high clini kevin suspi cion for Sjogr en's syndr ome, testi ng for anti- SS-A/ Ro antib radha shoul d be consi dered . Anti- Rin-1 antib radha shoul d be consi dered for clini fernando suspe cted infla mmato ry myopa levon . AC-0: Negat ayala Inter natio nal Conse nsus on PEDRO Patte rns (http s://d oi.or g/10. 1515/ ccl- 2017- 0052) For addit ional jensr radha pena refer to http: //gerry browne.Que stDia gnost ics.c om/fa q/FAQ 177 (This link is being provi ded for infor bestio nal/ educa matthew l purpo ses only. ) Not Available [facility] [address] [place], [address], 03/20/2024 17:07:34 03/18/2003/20/2024 ANTI- CCP anti-ccp <16 units normal Refer ence Range Negat ayala: <20 Weak Posit ayala: 20-39 Moder ate Posit ayala: 40-59 Stron g Posit ayala: >59 Not Available [facility] [address] [place] [address], [phone], 03/20/2024 19:39:01 05/18/2005/18/2024 COMPL ETE BLOOD COUNT white blood cells 4.3 10*3/ uL 3.8-10 .8 normal Not Available [facility] [address] [place] [address], [address], 05/18/2024 08:57:15 05/18/2005/18/2024 COMPL ETE BLOOD COUNT red blood cells 4.16 10*6/ uL 3.80-5 .20 normal Not Available [facility] [address] [place] [address], [address], 05/18/2024 08:57:15 05/18/2005/18/2024 COMPL ETE BLOOD COUNT hemoglobin 13.5 g/dL 12.0-1 6.0 normal Not Available [facility] [address] [place] [address], [address], 05/18/2024 08:57:15 05/18/2005/18/2024 COMPL ETE BLOOD COUNT hematocrit 38.8 % 35.0-4 7.0 normal Not Available [facility] [address] [place] [address], [address], 05/18/2024 08:57:15 05/18/2005/18/2024 COMPL ETE BLOOD COUNT MCV 93 fL 80-100 normal Not Available [facility] [address] [place] [address], [address], 05/18/2024 08:57:15 05/18/2005/18/2024 COMPL ETE BLOOD COUNT MCH 32 pg 26-35 normal Not Available [facility] [address] [place] [address], [address], 05/18/2024 08:57:15 05/18/20 24 05/18/2024 COMPL ETE BLOOD COUNT MCHC 35 g/dL 32-36 normal Not Available [facility] [address] [place] [address], [address], 05/18/2024 08:57:15 05/18/2005/18/2024 COMPL ETE BLOOD COUNT RDW 14.2 % 11.0-1 5.0 normal Not Available [facility] [address] [place] [address], [address], 05/18/2024 08:57:15 05/18/2005/18/2024 COMPL ETE BLOOD COUNT MPV 7.2 fL 6.2-10 .5 normal Not Available [facility] [address] [place] [address], [address], 05/18/2024 08:57:15 05/18/2005/18/2024 COMPL ETE BLOOD COUNT platelet count 253 10*3/ uL 150-40 0 normal Not Available [facility] [address] [place] [address], [address], 05/18/2024 08:57:15 05/18/2005/18/2024 COMPL ETE BLOOD COUNT neutrophil,a bsolute 1.5 10*3/ uL 1.6-8. 4 low Not Available [facility] [address] [place] [address], [address], 05/18/2024 08:57:15 05/18/2005/18/2024 COMPL ETE BLOOD COUNT lymphocyte,a bsolute 2.2 10*3/ uL 0.4-5. 1 normal Not Available [facility] [address] [place] [address], [address], 05/18/2024 08:57:15 05/18/20 24 05/18/2024 COMPL ETE BLOOD COUNT monocyte,abs olute 0.5 10*3/ uL 0.0-1. 2 normal Not Available [facility] [address] [place] [address], [address], 05/18/2024 08:57:15 05/18/20 24 05/18/2024 COMPL ETE BLOOD COUNT eosinophil,a bsolute 0.1 10*3/ uL 0.0-0. 8 normal Not Available [facility] [address] [place] [address], [address], 05/18/2024 08:57:15 05/18/2005/18/2024 COMPL ETE BLOOD COUNT basophil,abs olute 0.0 10*3/ uL 0.0-0. 3 normal Smear revie wed to confi rm cell morph ology . Not Available [facility] [address] [place] [address], [address], 05/18/2024 08:57:15 05/18/20 24 05/18/2024 COMPL ETE BLOOD COUNT % neutrophils 34.3 % 42.0-7 8.0 low Not Available [facility] [address] [place] [address], [address], 05/18/2024 08:57:15 05/18/20 24 05/18/2024 COMPL ETE BLOOD COUNT % lymphocytes 52.7 % 11.0-4 7.0 high Not Available [facility] [address] [place] [address], [address], 05/18/2024 08:57:15 05/18/20 24 05/18/2024 COMPL ETE BLOOD COUNT % monocytes 10.6 % 0.0-11 .0 normal Not Available [facility] [address] [place] [address], [address], 05/18/2024 08:57:15 05/18/2005/18/2024 COMPL ETE BLOOD COUNT % eosinophils 1.4 % 0.0-7. 0 normal Not Available [facility] [address] [place] [address], [address], 05/18/2024 08:57:15 05/18/20 24 05/18/2024 COMPL ETE BLOOD COUNT % basophils 1.0 % 0.0-3. 0 normal Not Available [facility] [address] [place] [address], [address], 05/18/2024 08:57:15 05/18/20 24 05/18/2024 COMPL ETE BLOOD COUNT nucleated red cells 0.1 % 0.0-0. 9 normal Not Available [facility] [address] [place] [address], [address], 05/18/2024 08:57:15 05/18/2005/18/2024 COMPL ETE BLOOD COUNT nucleated RBCs, absolute 0.00 10*3/ uL not estab. normal Not Available [facility] [address] [place] [address], [address], 05/18/2024 08:57:15 05/18/2005/18/2024 MORPH OLOGY RBC morphology NORMAL normal Not Available [facility] [address] [place] [address], [address], 05/18/2024 08:57:17 05/18/20 24 05/18/2024 MORPH OLOGY platelet morphology NORMAL normal Not Available [facility] [address] [place] [address], [address], 05/18/2024 08:57:17 05/18/2005/18/2024 C REACT AYALA PROTE IN C reactive protein 0.26 mg/dL 0.00-0 .49 normal Not Available [facility] [address] [place] [address], [address], 05/18/2024 09:01:31 05/18/2005/18/2024 COMP. METAB OLIC PANEL glucose 93 mg/dL 74-100 normal Not Available [facility] [address] [place] [address], [address], 05/18/2024 09:01:34 05/18/20 24 05/18/2024 COMP. METAB OLIC PANEL blood urea nitrogen 12 mg/dL 6-20 normal Not Available [facility] [address] [place] [address], [address], 05/18/2024 09:01:34 05/18/20 24 05/18/2024 COMP. METAB OLIC PANEL creatinine 0.64 mg/dL 0.50-0 .95 normal Not Available [facility] [address] [place] [address], [address], 05/18/2024 09:01:34 05/18/20 24 05/18/2024 COMP. METAB OLIC PANEL BUN/creatini ne ratio 19 (calc ) 10-20 normal Not Available [facility] [address] [place] [address], [address], 05/18/2024 09:01:34 05/18/20 24 05/18/2024 COMP. METAB OLIC PANEL sodium 139 mmol/ L 136-14 5 normal Not Available [facility] [address] [place] [address], [address], 05/18/2024 09:01:34 05/18/20 24 05/18/2024 COMP. METAB OLIC PANEL potassium 3.8 mmol/ L 3.4-5. 0 normal Not Available [facility] [address] [place] [address], [address], 05/18/2024 09:01:34 05/18/20 24 05/18/2024 COMP. METAB OLIC PANEL chloride 102 mmol/ L 98-107 normal Not Available [facility] [address] [place] [address], [address], 05/18/2024 09:01:34 05/18/20 24 05/18/2024 COMP. METAB OLIC PANEL carbon dioxide 26 mmol/ L 22-31 normal Not Available [facility] [address] [place] [address], [address], 05/18/2024 09:01:34 05/18/20 24 05/18/2024 COMP. METAB OLIC PANEL anion gap 11 (calc ) 7-25 normal Not Available [facility] [address] [place] [address], [address], 05/18/2024 09:01:34 05/18/20 24 05/18/2024 COMP. METAB OLIC PANEL calcium 9.0 mg/dL 8.6-10 .2 normal Not Available [facility] [address] [place] [address], [address], 05/18/2024 09:01:34 05/18/20 24 05/18/2024 COMP. METAB OLIC PANEL total protein 6.8 g/dL 6.4-8. 3 normal Not Available [facility] [address] [place] [address], [address], 05/18/2024 09:01:34 05/18/20 24 05/18/2024 COMP. METAB OLIC PANEL albumin 4.0 g/dL 3.5-5. 2 normal Not Available [facility] [address] [place] [address], [address], 05/18/2024 09:01:34 05/18/20 24 05/18/2024 COMP. METAB OLIC PANEL globulin 2.8 1.5-4. 5 normal Not Available [facility] [address] [place] [address], [address], 05/18/2024 09:01:34 05/18/20 24 05/18/2024 COMP. METAB OLIC PANEL albumin/glob ulin ratio 1.4 (calc ) 1.1-2. 5 normal Not Available [facility] [address] [place] [address], [address], 05/18/2024 09:01:34 05/18/20 24 05/18/2024 COMP. METAB OLIC PANEL bilirubin, total 0.3 mg/dL 0.1-1. 2 normal Not Available [facility] [address] [place], [address], 05/18/2024 09:01:34 05/18/20 24 05/18/2024 COMP. METAB OLIC PANEL alkaline phosphatase 96 U/L 30-121 normal Not Available [facility] [address] [place], [address], 05/18/2024 09:01:34 05/18/20 24 05/18/2024 COMP. METAB OLIC PANEL AST 19 U/L 0-32 normal Not Available [facility] [address] [place] [address], [address], 05/18/2024 09:01:34 05/18/20 24 05/18/2024 COMP. METAB OLIC PANEL ALT 14 U/L 0-33 normal Not Available [facility] [address] [place] [address], [address], 05/18/2024 09:01:34 05/18/20 24 05/18/2024 COMP. METAB OLIC PANEL GFR 101 >= 60 normal NOT E New calcu latio n for GFR (CKD- EPI 2020) is formu lated witho ut race adjus tment facto rs at the [facility] menda tion of the [employer] and [employer] [facility] [employer] . This calcu latio n has not been valid ated in pregn ant women . For pedia tric patie nts refer to https ://azeem verma.shannan mtz/reji calhoun s/DELLAO QI/gf r_cal culat orPed Not Available [facility] [address] [place] [address], [address], 05/18/2024 09:01:34 05/18/2005/18/2024 ESR, AUTOM ATED ESR, automated 4 mm 0-29 normal Not Available [facility] [address] [place], [address], 05/18/2024 13:31:35 03/18/20 24 03/18/2024 XR, chest , 2 view [facility] [address] [place] [address] Samara mullins Name: AUDREY mullins : 1964 Samara mullins Orderi ng Provid er: HUDSON ORSSI MUNA EXAM DATE: 2023 EXAM: XR CHEST PA/LAT CLINIC AL INFORM ATION: Physic al exam IMAGES PROVID ED: PA and latera l views of the chest. COMPAR REFUGIO: None. FINDIN GS: Heart size is within normal limits . Lung main are clear. IMPRES RUSSEL: No acute cardio pulmon yamileth change s. Interp reted By: Tulio Cochran MD Electr onical ly Signed By: Tulio Cochran MD on 024 3:15 PM [email or web address] [facility] [address] [place], [address], 03/25/2024 11:25:34 04/10/20 24 01/22/2024 MRI proce dure (PROC ) No observ ation record ed. [email or web address] Not Available 2023 16:18:41 04/10/20 24 11/26/2023 MRI, ankle , w/o contr ast No observ ation record ed. BARCODE Not Available 2023 13:28:19 Result Notes None recorded. Problems Name Problem SNOMED Code Status Onset Date Resolution Date Notes Provider Name and Address Organization Details Recorded Time Migraine with aura 1475289 Active 2015 From Automated Load;Provi muna: Elizabeth Hendrix;Stat us: Active Not Available [employer] 6 08:40:00 Problem Notes None recorded. Procedures Surgical History Date Name Laterality Status Provider Name and Address Organization Details Recorded Time Tubal Ligation completed Suman Magana [facility] 09/25/2016 15:36:30 Imaging Results Imaging Date Name Status LastModified by Organiz ation Details LastModified Time 03/18/2024 XR, chest, 2 view completed [email or web address] [facility] [address] [place], [address], 03/25/2024 11:25:34 01/22/2024 MRI procedure (PROC) completed [email or web address] Information not available 04/10/2024 16:18:41 11/26/2023 MRI, ankle, w/o contrast completed [email or web address] Information not available 04/10/2024 13:28:19 Procedure Notes None recorded. Medical Equipment None Reported. Allergies Allergen ID Allergen Name Allergen Category Reaction Reaction Severity Criticality Documentation Date Start Date Code Code System Note Provider Name and Address Organization Details Recorded Time [id number] ciproflox acin medicatio n Not available Not available Not available 09/27/2016 2551 RxNorm Jacqueline Daisha [facility] 7 10:44:55 Medications Name Sig Start Date Stop Date Status Note LastModified by Organization Details LastModified Time Compound Magic Mouthwash #10 (Diphenyd ramine/Ny statin/Ma alox/Lido erickson 1:1:1:1) Swish and spit 10 mL three times daily as needed 2024 active Not Available Not Available Not Avai lable Prescript ion - Prior Authoriza tion Request 04/02 completed Not Available Not Available Not Available amoxicill in 500 mg capsule TAKE ONE CAPSULE BY MOUTH THREE TIMES DAILY FOR 10 DAYS -- FINISH ALL MEDICINE -- active Not Available Not Available No t Available nystatin 100,000 unit/mL oral suspensio n TAKE 1 TEASPOON FUL (5 ML) BY MOUTH THREE TIMES DAILY FOR 7 DAYS 04/14 completed Not Available Not Available Not Available clindamyc in HCl 300 mg capsule TAKE ONE CAPSULE BY MOUTH THREE TIMES DAILY FOR 7 DAYS -- FINISH ALL MEDICINE -- active Not Available Not Available No t Available azithromy samuel 250 mg tablet TAKE 2 TABLETS BY MOUTH ON DAY 1, THEN TAKE 1 TABLET DAILY ON DAYS 2-5 04/14 completed Not Available Not Available Not Available fluconazo le 150 mg tablet TAKE ONE TABLET BY MOUTH A ONE-TIME DOSE active Not Available Not Available No t Available sumatript an 100 mg tablet TAKE ONE TABLET BY MOUTH AT ONSET of migraine HEADACHE . MAY REPEAT FOR 1 DOSE in 2 hours if needed. DO not exceed 2 tablets in 24 hours. 04/14 completed no longer taking Not Available Not Available Not Available ondansetr on HCl 4 mg tablet Take 1 tablet every 8 hours by oral route for 30 days. 04/14 completed Not Available Not Available Not Available prednison e 20 mg tablet TAKE ONE TABLET BY MOUTH EVERY DAY AND taper as directed 04/14 completed Not Available Not Available Not Available prednison e 5 mg tablet TAKE FOUR TABLETS BY MOUTH ONCE DAILY FOR 5 DAYS, TAKE THREE TABLETS ONCE DAILY FOR 5 DAYS, TAKE TWO TABLETS ONCE DAILY FOR 5 DAYS, TAKE ONE TABLET ONCE DAILY UNTIL follow UP. --TAKE WITH FOOD-- active Not Available Not Available No t Available topiramat e 25 mg tablet TAKE ONE TABLET BY MOUTH EVERY NIGHT FOR 1 WEEK THEN TAKE TWO TABLETS EVERY NIGHT THEREAFT ER 04/14 completed no longer taking Not Available Not Available Not Available acyclovir 400 mg tablet TAKE ONE TABLET BY MOUTH THREE TIMES DAILY FOR 7 DAYS 04/14 completed Not Available Not Available Not Available leflunomi de 20 mg tablet TAKE ONE TABLET BY MOUTH EVERY DAY active no longer taking Not Available Not Available Not Available tramadol 50 mg tablet TAKE ONE TABLET BY MOUTH EVERY 6 HOURS NEEDED FOR ACUTE PAIN MAY CAUSE DROWSINE SS 04/14 completed no longer taking Not Available Not Available Not Available amitripty line 10 mg tablet Bedtime 09/27 completed Duration : 30 days;Ins truction s: 1 tab po qhs x 1wk, then 2 tabs po qhs x 1wk, then 3 tabs po qhs x1wk, then 4 tabs po qhs x1wk, then 5 tabs po qhs there after;Fr equency: hs;Medic ation Descript ion: amitript yline; Dosage:5 ; Route:or al; refills: 11; Quantity :150 tablet Not Available Not Available Not Available benzonata te 100 mg capsule TAKE ONE CAPSULE BY MOUTH THREE TIMES DAILY NEEDED FOR COUGH -SWALLOW WHOLE. DO NOT CRUSH OR CHEW- 04/14 completed no longer taking Not Available Not Available Not Available lidocaine HCl 2 % mucosal solution SWISH AND EXPECTOR ATE 5 ML BY MOUTH FOUR TIMES DAILY (BEFORE MEALS AND AT BEDTIME) FOR 7 DAYS 04/14 completed Not Available Not Available Not Available diclofena c sodium 75 mg tablet,de layed release TAKE ONE TABLET BY MOUTH TWICE DAILY --TAKE WITH FOOD-- active Not Available Not Available No t Available lisinopri l 5 mg tablet Bedtime 04/14 completed no longer taking Not Available Not Available Not Available diclofena c sodium 50 mg tablet,de layed release TAKE ONE TABLET BY MOUTH EVERY TWELVE HOURS --TAKE WITH FOOD-- 04/14 completed no longer taking Not Available Not Available Not Available ergocalci ferol (vitamin D2) 1,250 mcg (50,000 unit) capsule TAKE ONE CAPSULE BY MOUTH ONCE EVERY WEEK active Not Available Not Available No t Available hydroxych loroquine 200 mg tablet TAKE ONE TABLET BY MOUTH TWICE DAILY 04/14 completed Not Available Not Available Not Available ibuprofen 600 mg tablet TAKE ONE TABLET BY MOUTH TWICE DAILY --TAKE WITH FOOD-- active Not Available Not Available No t Available methylpre dnisolone 4 mg tablets in a dose pack TAKE ACCORDIN G TO PACKAGE INSTRUCT IONS --TAKE WITH FOOD-- -- FINISH ALL MEDICINE -- 04/14 completed Not Available Not Available Not Available Plaquenil 04/14 completed 100MG TWICE DAILYno longer taking Not Available Not Available Not Available diclofena c 1 % topical gel apply 4 grams topicall y TO single ankle OR foot; FOR foot includes sole/toe s/top of foot FOUR TIMES DAILY NEEDED FOR PAIN 04/14 completed Not Available Not Available Not Available Duexis 800 mg-26.6 mg tablet 04/02 completed Not Available Not Available Not Available Aimovig Autoinjec tor 70 mg/mL subcutane ous auto-inje ctor one injectio n monthly 09/16 completed Not Available Not Available Not Available Aimovig Autoinjec tor 140 mg/mL subcutane ous auto-inje ctor INJECT 1 ML SUBCUTAN EOUSLY ONCE A MONTH DIRECTED 04/14 completed no longer taking Not Available Not Available Not Available Nurtec ODT 75 mg disintegr ating tablet DISSOLVE ONE TABLET in MOUTH EVERY DAY NEEDED FOR migraine active Not Available Not Available No t Available Vitals Date Recorded Body height Body mass index (BMI) Body weight Systolic blood pressure Diastolic blood pressure Provider Name and Address Organization Details Last Updated DateTime 12/23/2018 167.64 cm 30.8 kg/m2 74217.14 g 100 mm[Hg] 68 mm[Hg] Megan Duarte [facility] 9 16:08:50 Date Recorded Body height Body mass index (BMI) Body weight Systolic blood pressure Diastolic blood pressure Provider Name and Address Organization Details Last Updated DateTime 09/16/2019 167.64 cm 31.3 kg/m2 41519.92 g 122 mm[Hg] 72 mm[Hg] John Torres [facility] 0 14:30:41 Date Recorded Body weight Heart rate Oxygen saturation Oxygen saturation in Arterial blood by Pulse oximetry Systolic blood pressure Diastolic blood pressure Provider Name and Address Organization Details Last Updated DateTime 4 59819.4 g 94 /min 97 % 97 % 118 mm[Hg] 80 mm[Hg] Demi [facility] 4 13:05:24 Date Recorded Body weight Heart rate Oxygen saturation Oxygen saturation in Arterial blood by Pulse oximetry Systolic blood pressure Diastolic blood pressure Provider Name and Address Organization Details Last Updated DateTime 4 54436.1 7 g 89 /min 98 % 98 % 122 mm[Hg] 80 mm[Hg] [facility] 4 08:10:25 Date Recorded Body weight Heart rate Oxygen saturation Oxygen saturation in Arterial blood by Pulse oximetry Systolic blood pressure Diastolic blood pressure Provider Name and Address Organization Details Last Updated DateTime 5 94759.4 g 86 /min 96 % 96 % 110 mm[Hg] 80 mm[Hg] Demi [facility] 5 08:21:33 Social History Question Answer Notes LastModified by Organizat ion Details LastModified Time Tobacco Smoking Status Former Smoker 20+ [facility] 15:35:45 What Is Your Level Of Alcohol Consumption? 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 09/02/2024 [email or web address] Information not available 09/02/2024 How Much Tobacco Do You Smoke? No [email or web address] Information not available 04/02/2017 Sex: Unknown Functional Status None recorded. Mental Status None recorded. Family History Relationship Description Onset Age of this Age Resolved Age Notes LastModified by Organization Details LastModified Time Mother Hypertensive disorder [email or web address] Not available 2016 15:35:25 Medical History Condition Response Emphysema N COPD N Diabetes N Bleeding Disorder N Arthritis Y Acid Reflux (GERD) Y Asthma N Reflux/GERD Y Heart Disease N Rheumatoid Arthritis Y Headaches Y Hypertension N Gynecological HistoryNo gynecological history recorded. Obstetrics History GPAL:G 0 P 0 0 0 0 Immunizations Vaccine Type Date Status Note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
--- OUTSIDE RECORDS SUMMARY | 2024-11-05 19:58 | XMS_ITS ---
Care Plan - [facility] Created on: November 05, 2024 Audrey Acosta Ayden : 1965 Sex: Female Author Organization [facility] Address [address] [place] [phone] Phone Care Team Providers Care Childcare Center Director Name Role Phone Ankush DUONG, Javier Abarca Unavailable + [phone]
--- OUTSIDE RECORDS SUMMARY | 2024-11-05 19:58 | XMS_ITS | Clinical Summary ---
Author Organization [facility] , [facility] Address [address] [place] [address] Phone Care Team Providers Care Land Management Forester Name Role Phone Ankush DUONG, Javier Abarca Unavailable + [phone] Reason for Visit and Chief Complaint The Chief Complaint is: rt knee pain Problems Includes: Problems addressed during this encounter and other active Problems Current Visit Onset Date Resolved Date Provider Parvez Payton Joint Pain in the Right Knee 06/23/2024 French Moreau PA-C Active Last Documented On 4 11:14AM ; [facility], [facility] Plan of Treatment Patient presents today for evaluation of right medial-sided knee pain onset approximately 7 months ago after wearing boot for foot condition. Had injection couple of weeks ago which is moderately beneficial. We discussed continued anti-inflammatories, knee sleeve, weight loss strategies good shoes activity modification can follow up p.r.n. for injection - Last Documented On 07/09/2024 1:05PM ; [facility], [facility] Future Appointments Date Time Location Provi muna INJECTION 11/27/2024 8:00AM [facility] PS C French Moreau PA-C Last Documented On 5 10:25AM ; [facility], [facility] Instructions to patient Lose weight Last Documented On 4 11:22AM ; [facility], [facility] Assessments Includes: Assessments from this encounter Findings - Overweight - Last Documented On 07/09/2024 1:05PM ; [facility], [facility] Severe right knee medial compartment DJD - Last Documented On 07/09/2024 1:05PM ; [facility], [facility] Instructions Includes: Instructions from this encounter Instructions to patient Lose weight Last Documented On 4 11:22AM ; [facility] Medical Equipment - Implanted Devices Includes: Current Devices No Medical Equipment Recorded Medications Includes: Medications discussed during this encounter and other current Medications Current Medications (continue as prescribed) Fluconazole 150 MG Oral Tablet 06/12/2024 Provider: TIFFANY PERRIN MD Diagnosis: Last Documented On 4 11:19AM By Esther Galeas ; [facility] Past Medications on file Diclofenac Sodium 75 MG Oral Tablet Delayed Release 06/24/2024 - 07/24/2024 Provider: French Moreau PA-C Diagnosis: twice a day Last Documented On 4 2:25PM By Jackie Juarze ; [facility] Medications Administered Includes: Administered Medications from this encounter No Administered Medications Recorded Vital Signs Includes: Vital Signs from this encounter Vital Name 06/23/2024 11:22A Height (in) 65 Weight (lb) 205 Body Mass Index 34.1 Body Surface Area 2 Note: ab Last Documented: On 06/23/2024 11:22A M ; [facility] Results Includes: Results discussed during this encounter No Results Recorded For Specified Dates History of Present Illness Includes: History of Present Illness from this encounter MAXWELL Acosta is a 59 year old female. - Allergy list reviewed - Problem list reviewed - Medication list reviewed - Yes, previous treatment. - History of Injections - - Review of medications documented Social History Description Last Updated Caffeine use 06/23/2024 Last Documented On 4 1:05PM ; [facility], [facility] No recent change in diet 06/23/2024 Last Documented On 4 1:05PM ; [facility] Not a current smoker. 06/23/2024 Last Documented On 4 1:05PM ; [facility] Not exercising regularly 06/23/2024 Last Documented On 4 1:05PM ; [facility] Not using alcohol 06/23/2024 Last Documented On 4 1:05PM ; [facility] Not using drugs 06/23/2024 Last Documented On 4 1:05PM ; [facility] Smoking Status Unknown Procedures and Surgical History Includes: Procedures from this encounter Procedures Code Diagnosis Performing Provider Service Location Service Date X-RAY EXAM KNEE 4 OR MORE (RIGHT) 52035 Unilateral primary osteoarthritis, right knee French Moreau PA-C [facility] 06/23/2024 Last Documented On 4 1:37PM ; [facility] an X-ray was performed 33130 Last Documented On 4 11:21AM ; [facility] an MRI was performed [id number] Last Documented On 4 11:21AM ; [facility] Medical History Includes: Medical History addressed during this encounter Description Last Updated History of arthritis 06/23/2024 Last Documented On 4 1:05PM ; [facility] Family History Includes: Family History addressed during this encounter Description Last Updated Family history of systemic hypertension 06/23/2024 Last Documented On 4 1:05PM ; [facility] Review of Systems Includes: Review of Systems from this encounter Systemic: Not feeling tired, no recent weight [...] Immunologic: No complaint of seasonal allergic reaction. Mental Status Includes: Mental Status from this encounter Description No anxiety Functional Status Includes: Functional Status from this encounter No Functional Status Recorded Physical Exam Includes: Physical Exam from this encounter Allergies Includes: Active Allergies No Known Allergies Encounters Encounter Provider Location Date Check-In Time Check-Out Time Diagnosis Physician Specified French Moreau PA-C [facility] 06/23/20 10:39AM 12:45PM Overweight Insurance Includes: Active Insurance Policies Plan Name Member ID Group # Subscriber Relationship Effect edward Dates 1 - R [id number] Audrey Acosta Self Clinical Notes Includes: Clinical Notes from this encounter * Progress note Date Encounter Last Documented by 06/23/2024 Physician Specified Last genevieve haywood on 07/09/2024; 1:05 PM, French Moreau PA-C; [facility], [facility] Active Problems & Conditions - Joint [...]
--- OUTSIDE RECORDS SUMMARY | 2024-11-05 19:58 | XMS_ITS | Clinical Summary ---
Author Organization [facility] , [facility] Address [address] [place] [address] Phone Care Team Providers Care V Belt Finisher Name Role Phone Ankush DUONG, Javier Abarca Unavailable + [phone] Reason for Visit and Chief Complaint INJECTION Problems Includes: Problems addressed during this encounter and other active Problems All Visits Onset Date Resolved Date Provider Condition S tatus Joint Pain in the Right Knee 06/23/2024 French Moreau PA-C Active Last Documented On 4 11:14AM ; [facility] Plan of Treatment Future Appointments Date Time Location Provi muna INJECTION 11/27/2024 8:00AM [facility] French Moreau PA-C Last Documented On 5 10:25AM ; [facility] Assessments Includes: Assessments from this encounter No Assessments Recorded Medical Equipment - Implanted Devices Includes: Current Devices No Medical Equipment Recorded Medications Includes: Medications discussed during this encounter and other current Medications Current Medications (continue as prescribed) Fluconazole 150 MG Oral Tablet 06/12/2024 Provider: TIFFANY PERRIN MD Diagnosis: Last Documented On 4 11:19AM By Esther Galeas ; [facility] Medications Administered Includes: Administered Medications from this encounter No Administered Medications Recorded Results Includes: Results discussed during this encounter No Results Recorded For Specified Dates History of Present Illness Includes: History of Present Illness from this encounter No History of Present Illness Recorded Social History No Social History Recorded - Smoking Status Unknown Procedures and Surgical History Includes: Procedures from this encounter Procedures Code Diagnosis Performing Provider Service Location Service Date DRAIN/INJECT, JOINT/BURSA (RIGHT) Unilateral primary osteoarthritis, right knee French Moreau PA-C [facility] 08/26/2024 Last Documented On 5 11:28AM ; [facility] Triamcinolone/Kenalog, 10mg per cc [id number] Unilateral primary osteoarthritis, right knee French Moreau PA-C [facility] 08/26/2024 Last Documented On 5 11:28AM ; [facility] Medical History Includes: Medical History addressed during this encounter No Medical History Recorded Family History Includes: Family History addressed during this encounter No Family History Recorded Review of Systems Includes: Review of Systems from this encounter No Review of Systems Recorded Mental Status Includes: Mental Status from this encounter No Mental Status Recorded Functional Status Includes: Functional Status from this encounter No Functional Status Recorded Physical Exam Includes: Physical Exam from this encounter No Physical Exam Recorded Allergies Includes: Active Allergies No Known Allergies Encounters Encounter Provider Location Date Check-In Time Check- Out Time Diagnosis INJECTION French Moreau PA-C [facility] 5 10:33AM 10:59AM Insurance Includes: Active Insurance Policies Plan Name Member ID Group # Subscriber Relationship Effect edward Dates 1 - [facility] [id number] Audrey Acosta Self Clinical Notes Includes: Clinical Notes from this encounter No Clinical Notes Recorded
== END 2024-11-01 09:18 | disposition home or self-care (01) ==
PROVIDERS: Emergency Provider Emergency Medicine; PCP Nurse Practitioner Family
DX: L03.211 Cellulitis of face (principal); R22.0 Localized swelling, mass and lump, head; S00.86XA Insect bite (nonvenomous) of other part of head, initial encounter
CPT/HCPCS: 70450; 70481; 80053; 85025; 86140; 96361; 96374; 96375; 99285; J0131; J0780; J1200; J7120; Q9967

== ENCOUNTER 2025-04-15 19:29 | Emergency (ER) | payer OTHER, SELFPAY ==
--- OUTSIDE RECORDS SUMMARY | 2017-12-25 10:00 | XMS_ITS | Encounter Summary ---
Author Organization [facility] Address [address] [place] [address] Care Team Providers Care Brokerage Branch Manager Name Role Phone Angel Hare MD Primary Care Provider [phone] Reason for Referral * Diagnostic Imaging (Routine) - Closed Specialty Diagnoses / Procedures Referred By Contac t Referred To Contact Radiology Diagnoses RLQ abdominal pain Procedures [place] [address] [place] [address] Phone: tel: fax: [facility] Phone: tel: Referral ID Status Reason Start Date Expiration Date Visits Re quested Visits Authorized [id number] Closed 12/04/2017 12/04/2018 1 1 Reason for Visit * Diagnostic Imaging (Routine) - Closed Specialty Diagnoses / Procedures Referred By Contac t Referred To Contact Radiology Diagnoses RLQ abdominal pain Procedures [place] Non[place] [address] [place] [address] Phone: tel: fax: [facility] Phone: tel: Referral ID Status Reason Start Date Expiration Date Visits Re quested Visits Authorized [id number] Closed 12/04/2017 12/04/2018 1 1 Encounter Details Date Type Department Care Team (Latest Contact Info) Description 12/25/2017 10:00 AM EDT Hospital Encounter [facility] [place] [phone] RLQ abdominal pain Social History Tobacco Use [...] Narrative 12/25/2017 5:16 PM EDT PAT NAME: FRDEERIC LOPEZ MED REC#: [id number] DA: [id number] PAT GEND: F PAT TYPE: O EXAM INGA: [id number] REF PHYS ALEX FOREMANLEY Indication ======== RLQ pain History ====== Medical History Past surgical history: Previous surgeries performed 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 ago [...] pelvic ultrasound Recommendation Follow-up as clinically indicated. 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 ago Previous Outcomes Gravida2 Para2 Method ====== Voluson E6, Transvaginal ultrasound examination, Color Doppler flowperformed, 3D ultrasound examination. View: Adequate view Uterus ====== Uterus:Normal Uterus position:Anteverted Myometrium:Homogeneous Endometrium:Ill-defined borders Cervix details:Normal Uterus long36 mm Uterus ap27 mm Uterus tr40 mm Uterus Vol20.4 cm Cervical jrzoct01.6 mm Uterus other findings:Small, anechoic area in posterior myometriummeasuring 4.4 x 3.9 x 2.2 mm. Right Ovary ========= Rt ovary:Normal Rt ovary D122.8 mm Rt ovary D210.0 mm Rt ovary D313.1 mm Left Ovary ======== Lt ovary:Not visualized Cul de Sac ========= Normal Impression ========= Normal pelvic ultrasound Recommendation Follow-up as clinically indicated. Program Management Professional: Chen Mcnamara RDMS Physician: Justice Foreman MD Electronically signed by: Justice Foreman MD at: 17:16 us Justice Foreman MD IMG US ORDERABLES Final Re sult documented in this encounter Visit Diagnoses Diagnosis RLQ abdominal pain Abdominal pain, right lower quadrant documented in this encounter Care Teams Brokerage Branch Manager Relationship Specialty Start Date End Date Angel Hare MD On license of [facility]0 [facility] [address] [facility] [address] [place] [address] PCP - General Adolescent Medicine 12/04/17 documented as of this encounter
[2025-04-15] VITALS (25 sets, daily range): BP systolic 130–219; BP diastolic 88–143; PULSE 87–112; RESP 13–37; TEMP 36.7; O2SAT 93–98; BMI 32.3
--- NOTE | 2025-04-15 19:36 | ECG_ITS ---
APPROVED REPORT Exam: Resting ECG HR:114 bpm ECG Measurements Heart Rate 114 AXES NC 154 P 60 QRSd 128 QRS 64 QT 329 T 53 QTc 396 Conclusion Sinus tachycardia without acute ST or T wave changes concerning for ischemia Electronically signed by : Elina Robertson, 04/16/2025 00:43:23
--- OUTSIDE RECORDS SUMMARY | 2025-04-15 19:37 | XMS_ITS | Encounter Summary ---
Author Organization [facility] Address [address] [place] [address] Care Team Providers Care Still Cleaner Tube Name Role Phone Angel Hare MD Primary Care Provider [phone] Encounter Details Date Type Department Care Team (Late st Contact Info) Description 11/16/2024 Results Follow-Up [facility] [address] [id number] Tuan Petty MD [address] [facility] [address] [place] [address] Social History Tobacco Use Types Packs/Day Years Used Date Smoking Tobacco: Former Cigarettes - 1986 Smokeless Tobacco: Never Alcohol Use Standard [...] on file documented as of this encounter Visit Diagnoses Not on filedocumented in this encounter Care Teams Still Cleaner Tube Relationship Specialty Start Date End Date Angel Hare MD [address] [place], [place] [id number] PCP - General Adolescent Medicine 12/04/17 documented as of this encounter
--- OUTSIDE RECORDS SUMMARY | 2025-04-15 19:37 | XMS_ITS | Clinical Summary ---
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 Other info: Otto Acosta's mom Rheumatoid arthritis 07/29/2016 Resolved Problems Problem Noted Date Diagnosed Date Resolved Date Essential hypertension 07/29/201307/04 Immunizations Immunization Administration Dates Next Due COVID-19 (ARVIN) 06/14/2021 Flu Vaccine Intradermal Quad 18-64YR 05/29/2021 Influenza, Unspecified 05/21/2023 Shingrix 12/22/2021,07/26/2021 Tdap 01/27/2016 Family History Medical History Relation Name Comments Breast cancer Neg Hx Ovarian cancer Neg Hx Social History Tobacco Use Types Packs/Day Years [...] on file Sexual Orientation Not on file Last Filed Vital Signs Vital Sign Reading Time Taken Comments Blood Pressure 122/76 05/28/2023 8:35 AM EDT Pulse - - Temperature - - Respiratory Rate 14 05/28/2023 8:35 AM EDT Oxygen Saturation - - Inhaled Oxygen Concentration - - Weight 91.2 kg (201 lb) 05/28/2023 8:35 AM EDT Height - - Body Mass Index - - Plan of Treatment Health Maintenance Due Date Last Done Comments COLOGUARD 2009 COLON CANCER SCREENING 5 YEA R SIGMOIDOSCOPY [address] COLONOGRAPHY 2009 FECAL OCCULT BLOOD TEST 2009 FIT Testing (1 year) 2009 Pneumococcal Vaccine 50+ (1 of 1 - PCV) 2014 ANNUAL PHYSICAL 02/27/2017 HEPATITIS C SCREENING 02/27/2017 Annual Gynecologic Pelvic an d Breast Exam 05/29/2024 05/28/2023 PAP SMEAR 07/04/2024 07/04/2021, 03/17/2018 INFLUENZA VACCINE 02/26/2025 05/21/2023, 05/29/2021 MAMMOGRAM 11/16/2026 11/16/2024, 0402/2025, 04/11/2023, Additional history exists COLONOSCOPY 02/01/2028 01/31/2018, 01/31/2018 COLORECTAL CANCER SCREENING 02/01/2028 TDAP/TD VACCINES (3 - Td or Tdap) 10/24/2030 021, 01/27/2016 ZOSTER VACCINE Completed 12/22/2021, 07/26/2021 Procedures Procedure Name Priority Date/Time Associated Diagnosis Comments MAMMO SCREENING DIGITAL TOMOSYNTHESIS BILATERAL W CAD Routine 11/13/2024 3:34 PM EDT Encounter for screening mammogram for malignant neoplasm of breast PAP IG, RFX HPV ASCU ([facility]) Routine 07/04/2021 Annual 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 OVERALL ASSESSMENT: ACR BI-RADS CATEGORY: 1, NEGATIVE: Recommend continued routine annual screening mammogram. The standard false-negative rate of mammography is between 10% and 25%. Complex patterns or increased breast density will markedly elevate the false-negative rate of mammography. A letter, in lay terminology, with the results of this exam will be mailed to the patient. 11/16/2024 1:28 PM by Marah Navarro MD on Narrative 11/16/2024 1:28 PM EDT BILATERAL DIGITAL SCREENING MAMMOGRAM WITH TOMOSYNTHESIS CLINICAL INDICATION: Screening mammogram. TECHNIQUE: Bilateral low dose full field digital breast tomosynthesis imaging was performed. CAD was utilized. COMPARISON: Prior studies dating back to 09/15/2015. FINDINGS: There are scattered fibroglandular densities. RIGHT BREAST: No suspicious masses, calcifications, or areas of distortion are seen. LEFT BREAST: No suspicious masses, calcifications, or areas of distortion are seen. us Tuan Petty MD IMG MAMMOGRAPHY ORDERABLES Final Result * Pap IG, Rfx HPV ASCU (07/04/2021) Cervix uteri structure / Unknown us Tuan Petty MD PATHOLOGY/CYTOLOGY ORDERAB LES Final Result [facility]
[address] [place] [address], * SCANNED - COLONOSCOPY (01/31/2018) us Tuan Petty MD CHART REVIEW TABS Final Result from Last 3 Months or Most Recently Relevant to Health Maintenance Insurance R Care Teams Developmental Psychologist Relationship Specialty Start Date End Date Angel Hare MD [address] [facility] [address] [place] [address] PCP - General Adolescent Medicine 12/04/17
--- OUTSIDE RECORDS SUMMARY | 2025-04-15 19:37 | XMS_ITS | Clinical Summary ---
Author Organization [facility] Address [address] [place] [address] Care Team Providers Care Pipe Fitter Helper Name Role Phone Angel Hare MD Primary Care Provider [phone] Allergies Active Allergy Reactions Criticality Noted Date Comments Ciprofloxacin Unknown - Patient st ates they do not know rxn details Low 11/11/2014 Medications Erenumab-aooe (Aimovig) 140 MG/ML solution auto-injector Aimovig Autoinjector 140 mg/mL subcutaneous auto-injector INJECT 1 ML SUBCUTANEOUSLY ONCE A MONTH DIRECTED Active Multiple Vitamin (MULTI-VITAMIN S PO) 5 Active SUMAtriptan (Imitrex) 100 MG tablet sumatriptan 100 mg tablet TAKE ONE TABLET BY MOUTH AT ONSET of migraine HEADACHE. MAY REPEAT FOR 1 DOSE in 2 hours if needed. DO not exceed 2 tablets in 24 hours. 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 Elevated rheumatoid factor 11/09/2016 Polymyalgia rheumatica 10/29/2016 Rheumatoid arthritis 07/29/2016 Migraine with aura 12/21/2015 Degenerative cervical disc 06/16/2015 Headache 06/16/2015 Cervical cord compression with myelopathy 2014 Cervical migraine syndrome 11/11/2014 Neck pain 11/11/2014 Essential hypertension 07/29/2013 Family History Medical History Relation Name Comments Arthritis Mother Hypertension Mother Relation Name Status Comments Mother Social History Tobacco Use Types Packs/Day Years Used Date Smoking Tobacco: Former Smokeless Tobacco: Never Alcohol Use Standard Drinks/Week Comments No 0 (1 standard drink = 0.6 oz pur e alcohol) Comments Unknown Sex and Gender Information Value Date Recorded Sex Assigned at Not on file Legal Sex Female 6:58 PM EDT Gender Identity Not on file Sexual Orientation Not on file Last Filed Vital Signs Vital Sign Reading Time Taken Comments Blood Pressure 118/78 03/06/2021 2:32 PM EDT Pulse 77 03/06/2021 2:32 PM EDT Temperature 36.4 C (97.5 F) 07/04/2020 1:38 PM EST Respiratory Rate 16 08/31/2019 3:04 PM EST Oxygen Saturation - - Inhaled Oxygen Concentration - - Weight 90.3 kg (199 lb 1.2 oz) 03/06/2021 2:32 P M EDT Height 167.6 cm (5' 6 ) 03/06/2021 2:32 PM EDT Body Mass Index 32.13 03/06/2021 2:32 PM EDT Plan of Treatment Health Maintenance Due Date Last Done Comments [facility]-Depression Screening 1964 [facility]-/Child/Adol SDOH Screenings 1964 [facility]- SDOH Screenings 1982 [facility]-Adult SDOH Screenings 1982 [facility]-Pap Smear 1985 [facility]-Cervical Cancer Screening 1994 [facility]-HPV/Cotest 1994 CT Colonography 2009 Colonoscopy 2009 FIT-DNA 2009 FIT 2009 FOBT 2009 Sigmoidoscopy 2009 [facility]-Colorectal Cancer Screening 2009 [facility]-Pneumococcal Vaccine: 50 + Years (1 of 1 - PCV) 2014 [facility]-Zoster Vaccines (1 of 2) 2014 [id number]-31 Vaccine (1 - 2023- season) 2025 [facility]-Influenza Vaccine (#1) 03/29/202504/28, 04/28/2017, 05/14/2016 [facility]-DTaP,Tdap,and Td Vaccine s (2 - Td or Tdap) 10/24/2030 10/24/2020 [facility]-RSV Vaccine: 60+ Years o r (1 - 1-dose 75+ series) 2039 HPV Vaccines Aged Out No longer eligi ble based on patient's age to complete this topic [facility]-HIB Vaccines Aged Out No longer e ligible based on patient's age to complete this topic [facility]-Hepatitis A Vaccines Aged Out No longer eligible based on patient's age to complete this topic [facility]-IPV Vaccines Aged Out No longer e ligible based on patient's age to complete this topic [facility]-Rotavirus Vaccines Aged Out No lo nger eligible based on patient's age to complete this topic Insurance YENNI Care Teams Pipe Fitter Helper Relationship Specialty Start Date End Date Angel Hare MD [address] [place] [address] PCP - General 12/09/20
--- NOTE | 2025-04-15 19:44 | PC.NURSE ---
Report given to Bronwyn RN Pt awake alert and oriented Skin pink warm and dry Resp full and easy Speech clear and appropriate. Pt in ST per continuous heart monitor
--- NOTE | 2025-04-15 20:04 | XR_ITS ---
PROCEDURE INFORMATION: Exam: XR Chest Exam date and time: 04/15/2025 8:25 PM Age: 59 years old Clinical indication: Other: Chest pain TECHNIQUE: Imaging protocol: Radiologic exam of the chest. Views: 1 view. COMPARISON: CT ANGIO CHEST PE PROTOCOL 06/16/2023 4:14 PM FINDINGS: Lungs: Bibasilar subsegmental atelectasis. No consolidation. Pleural spaces: Unremarkable. No pleural effusion. No pneumothorax. Heart/Mediastinum: Unremarkable. No cardiomegaly. Bones/joints: Unremarkable. IMPRESSION: Subsegmental atelectasis.
--- NOTE | 2025-04-15 20:06 | HMH.EDGENADL ---
Discharge Plan Disposition Patient Disposition: Home, Self-Care Condition: Good Prescriptions Prescriptions: New lisinopril 10 mg tablet 10 mg PO BID Qty: 60 0RF No Action methylprednisolone 4 mg tablets,dose pack See Rx Instructions PO PER PKG DIR Qty: 21 0RF Rx Instructions: PO PER PKG DIR Nurtec ODT 75 mg tablet,disintegrating 75 mg PO DAILY PRN Patient Comments: DISSOLVE ONE TABLET in MOUTH EVERY DAY NEEDED FOR migraine sulfamethoxazole-trimethoprim [Bactrim DS] 800-160 mg tablet 1 tab PO Q12H 10 Days Qty: 20 0RF Referrals Follow up/Referrals: Goldie Rowan APRN [Primary Care Provider, Medical] - See instructions Activity Restrictions/Add. Instructions Additional Instructions/Restrictions: I would like you to take your blood pressure each day once in the morning and once at night and keep a journal. If your blood pressure continues to be greater than 180 systolic (top number) or greater than 100 diastolic (bottom number) consistently then I would like you to start taking the blood pressure medication and I would like you to call your primary care provider. Return to the emergency department for any acute or worsening symptoms. Clinical Impressions Clinical Impression: Headache, Hypertension Instructions Patient Instructions: High Blood Pressure Print Language Print Language: Luxembourgish Discharge ED Provider: Elina Robertson Adult HPI General Chief complaint: Chest Pain Stated complaint: jaw pain,high blood pressure, headache Time Seen by Provider: 04/15/25 20:04 Mode of Arrival: Ambulatory Source of Information: Patient Description of Symptoms (Recalled from ER Triage Doc. by RN): jaw tightness with associated HTN History of Present Illness HPI narrative: Patient is a 59-year-old female with no significant past medical history who presented to the emergency department with jaw tightness, headache that started today. Patient stated that she was having a headache therefore she took her blood pressure at home and it was high. Patient states that she has previously had a high blood pressure but has not been taking any medications at home. Denies any chest pain or shortness of breath. Patient denies any abdominal pain nausea, vomiting or diarrhea. Patient denies any vision changes. Patient denies any numbness or weakness. Patient does not take any daily medications, patient denies any surgeries. Patient states that her headache is currently a 5 out of 10, left-sided, was not acute onset nature. Patient did not take any medications at home for headache. Related Data Home Medications ?Medication ?Instructions ?Recorded ?Confirmed rimegepant 75 mg disintegrating 75 mg PO DAILY PRN 01/29/24 10/26/24 tablet (Nurtec ODT) Previous Rx's ?Medication ?Instructions ?Recorded methylprednisolone 4 mg tablets in See Rx Instructions PO PER PKG DIR 10/26/24 a dose pack #21 tabs sulfamethoxazole 800 1 tab PO Q12H facial cellulitis 10 11/01/24 mg-trimethoprim 160 mg tablet days #20 tabs (Bactrim DS) lisinopril 10 mg tablet 10 mg PO BID #60 tabs 04/15/25 Allergies Allergy/AdvReac Type Severity Reaction Status Date / Time ciprofloxacin (From CIPRO) Allergy Unknown SEIZURES Verified 10/26/24 08:07 [facility] Disclaimer: The information contained in this section may have been updated after the patient was seen, as this information can be updated by other users. Social History Smoking Status: Never smoker alcohol intake: never current occupational status: other Travel in the last 8 weeks?: None Have you lived/traveled outside [place] in past 30 days?: No Contact w/someone who lives/traveled outside US past 30 days?: No Exposure to someone with infectious disease in past 14 days?: No Do you have a fever (greater than 100.4 F or 38 C)?: No Have you tested positive for COVID-19?: No Exposed to someone with COVID-19 in past 14 days?: No Do you have a sore throat?: No Do you have a cough?: No Do you have any weakness?: No Do you have any diarrhea?: No Are you experiencing any unusual bleeding?: No Do you have any muscle aches/pain?: No Do you have any abdominal pain?: No Are you experiencing loss of taste or smell?: No Other Medical History Have you received the Flu Vaccine for this season: Yes Have you received the Pneumonia Vaccine: No ROS Obtained: Yes All systems reviewed & no additional complaints except as documented and Yes Systems reviewed as appropriate & no additional complaints except as documented Physical Exam General General appearance: alert and in no apparent distress Head Head exam: atraumatic, normocephalic and normal inspection Eye Eye exam: Present normal appearance, PERRL and EOMI; Absent scleral icterus ENT ENT exam: Present normal exam and normal external ear exam Neck Neck exam: Present normal inspection and full ROM Chest Chest inspection: Present normal inspection and symmetric chest wall rise Respiratory Respiratory exam: Present normal lung sounds bilaterally; Absent respiratory distress or wheezes Cardiovascular Cardiovascular exam: Present regular rate, normal rhythm and normal heart sounds Abdominal Exam Abdominal exam: Present soft and distention; Absent tenderness, guarding or rebound Extremities Exam Extremities exam: Present normal inspection and full ROM Back Exam Back exam: Present normal inspection and full ROM Neurological Exam Neurological exam: Present alert, oriented X3, CN II-XII intact, motor sensory deficit, reflexes normal and other (NIH 0 ) Psychiatric Psychiatric exam: Present normal affect and normal mood Skin Skin exam: Present warm and dry Medical Decision Making Medical Records Medical records reviewed: Yes I reviewed the patient's medical records. Screening: Per USPSTF and CDC recommendations, given the prevalence of disease in our region, it is our hospital?s policy to screen for HIV and viral Hepatitis for all patients aged 18 and over and those with ongoing risk factors. Abraham Inquiry Pt receiving controlled substance: No Vital Signs: 04/15/25 19:35 04/15/25 20:01 04/15/25 20:07 Temperature 98.0 F Temperature Source Oral Pulse Rate Pulse Rate [Right Radial] 102 H Respiratory Rate 20 22 37 H Blood Pressure 201/127 H 219/143 H Blood Pressure [Right Arm] 179/122 H Blood Pressure Mean [Right Arm] 141 Blood Pressure Source [Right Arm] Automatic Cuff Blood Pressure Position [Right Arm] Sitting 02 Sat by Pulse Oximetry 97 97 95 Oxygen Delivery Method Room Air 04/15/25 20:09 04/15/25 20:13 04/15/25 20:22 Temperature Temperature Source Pulse Rate Pulse Rate [Right Radial] Respiratory Rate 36 H 32 H 27 H Blood Pressure 218/124 H 199/119 H 199/113 H Blood Pressure [Right Arm] Blood Pressure Mean [Right Arm] Blood Pressure Source [Right Arm] Blood Pressure Position [Right Arm] 02 Sat by Pulse Oximetry 96 98 97 Oxygen Delivery Method 04/15/25 21:01 04/15/25 21:12 04/15/25 21:20 Temperature Temperature Source Pulse Rate 112 H 108 H 104 H Pulse Rate [Right Radial] Respiratory Rate 20 13 20 Blood Pressure 189/110 H 206/123 H 179/111 H Blood Pressure [Right Arm] Blood Pressure Mean [Right Arm] Blood Pressure Source [Right Arm] Blood Pressure Position [Right Arm] 02 Sat by Pulse Oximetry 96 97 97 Oxygen Delivery Method 04/15/25 21:29 04/15/25 21:33 04/15/25 21:34 Temperature Temperature Source Pulse Rate 97 H 91 H Pulse Rate [Right Radial] Respiratory Rate 14 22 Blood Pressure 189/111 H 183/107 H 185/114 H Blood Pressure [Right Arm] Blood Pressure Mean [Right Arm] Blood Pressure Source [Right Arm] Blood Pressure Position [Right Arm] 02 Sat by Pulse Oximetry 97 98 Oxygen Delivery Method 04/15/25 21:40 04/15/25 21:49 04/15/25 21:59 Temperature Temperature Source Pulse Rate 97 H 92 H Pulse Rate [Right Radial] Respiratory Rate 17 21 Blood Pressure 165/101 H 130/103 H 140/90 Blood Pressure [Right Arm] Blood Pressure Mean [Right Arm] Blood Pressure Source [Right Arm] Blood Pressure Position [Right Arm] 02 Sat by Pulse Oximetry 95 98 Oxygen Delivery Method 04/15/25 22:00 04/15/25 22:02 04/15/25 22:13 Temperature Temperature Source Pulse Rate 91 H 89 93 H Pulse Rate [Right Radial] Respiratory Rate 14 14 19 Blood Pressure 140/90 144/88 H 162/103 H Blood Pressure [Right Arm] Blood Pressure Mean [Right Arm] Blood Pressure Source [Right Arm] Blood Pressure Position [Right Arm] 02 Sat by Pulse Oximetry 96 97 95 Oxygen Delivery Method 04/15/25 22:18 04/15/25 22:20 04/15/25 22:40 Temperature Temperature Source Pulse Rate 87 87 96 H Pulse Rate [Right Radial] Respiratory Rate 22 16 22 Blood Pressure 170/108 H 177/102 H 185/105 H Blood Pressure [Right Arm] Blood Pressure Mean [Right Arm] Blood Pressure Source [Right Arm] Blood Pressure Position [Right Arm] 02 Sat by Pulse Oximetry 96 96 95 Oxygen Delivery Method 04/15/25 23:00 04/15/25 23:03 04/15/25 23:10 Temperature Temperature Source Pulse Rate 96 H 92 H 95 H Pulse Rate [Right Radial] Respiratory Rate 18 19 21 Blood Pressure 184/117 H 154/99 H 142/95 H Blood Pressure [Right Arm] Blood Pressure Mean [Right Arm] Blood Pressure Source [Right Arm] Blood Pressure Position [Right Arm] 02 Sat by Pulse Oximetry 95 97 93 L Oxygen Delivery Method 04/15/25 23:20 Temperature Temperature Source Pulse Rate 98 H Pulse Rate [Right Radial] Respiratory Rate 20 Blood Pressure 140/92 H Blood Pressure [Right Arm] Blood Pressure Mean [Right Arm] Blood Pressure Source [Right Arm] Blood Pressure Position [Right Arm] 02 Sat by Pulse Oximetry 94 L Oxygen Delivery Method Lab Data Lab results reviewed: Yes I reviewed the patient's lab results. Lab Results 04/15/25 19:43: WBC 6.7, RBC 4.27, Hgb 13.7, Hct 40.1, MCV 93.9, MCH 32.1 H, MCHC 34.2, RDW 13.3, Plt Count 293, MPV 9.5, Neut % (Auto) 61.0, Lymph % (Auto) 32.8, Brantley % (Auto) 5.1, Eos % (Auto) 0.3, Baso % (Auto) 0.4, Neut # (Auto) 4.1, Lymph # (Auto) 2.2, Brantley # (Auto) 0.3, Eos # (Auto) 0.0, Baso # (Auto) 0.0, D-Dimer 0.80 H, Sodium 136, Potassium 3.6, Chloride 104, Carbon Dioxide 24, Anion Gap 11.6, BUN 10, Creatinine 0.60, Estimated Creat Clear 143, Estimated GFR 102, Est GFR ( Amer) 123, Glucose 172 H, Calcium 9.0, Magnesium 1.6, Total Bilirubin 0.6, AST 37 H, ALT 22, Alkaline Phosphatase 96, Troponin I < 0.01, NT-Pro-B Natriuret Pep < 20.0, Total Protein 7.4, Albumin 4.4, Globulin 3.0, Albumin/Globulin Ratio 1.5, Lipase 96, HCV Ab SCOTT w/Rflx PCR Qn Negative, HIV Ag/Ab Combo Qual Negative 04/15/25 23:56: Troponin I < 0.01 04/15/25 19:43 04/15/25 19:43 Orders (Tests/Meds): ED MEDICATIONS Discontinued Medications Generic Name Dose Route Start Last Admin Trade Name Freq PRN Reason Stop Dose Admin Acetaminophen 1,000 mg 04/15/25 21:15 04/15/25 21:39 Acetaminophen 500mg Tab PO 04/15/25 21:16 1,000 mg ONCE ONE Administration Aspirin 325 mg 04/15/25 20:04 04/15/25 20:20 Aspirin 325mg Tablet PO 04/15/25 20:05 325 mg ONCE ONE Administration Diphenhydramine HCl 12.5 mg 04/15/25 21:15 04/15/25 21:38 Diphenhydramine 50mg/Ml Vial IV 04/15/25 21:16 12.5 mg ONCE ONE Administration Iopamidol 80 ml 04/15/25 20:41 04/15/25 20:42 Iopamidol-370 (76%);100ml Bottle IV 04/15/25 20:42 80 ml ONCE ONE Administration Iopamidol 80 ml 04/15/25 20:42 04/15/25 20:43 Iopamidol-370 (76%);100ml Bottle IV 04/15/25 20:43 80 ml ONCE ONE Administration Ketorolac Tromethamine 30 mg 04/15/25 21:15 04/15/25 21:39 Ketorolac 30mg/Ml Vial IV 04/15/25 21:16 30 mg ONCE ONE Administration Labetalol HCl 10 mg 04/15/25 21:14 04/15/25 21:29 Labetalol 5mg/Ml 20ml Mdv IV 04/15/25 21:15 10 mg ONCE ONE Administration Prochlorperazine Edisylate 5 mg 04/15/25 21:15 04/15/25 21:38 Prochlorperazine 10mg/2ml Vial IV 04/15/25 21:16 5 mg ONCE ONE Administration Sodium Chloride 50 ml 04/15/25 20:41 04/15/25 20:42 0.9 % Sodium Chloride 50 Ml Vial IV 04/15/25 20:42 50 ml ONCE ONE Administration Sodium Chloride 10 ml 04/15/25 20:41 04/15/25 20:42 Sodium Chloride 0.9% 10ml Syr (Rad Only) IV 04/15/25 20:42 10 ml ONCE ONE Administration Sodium Chloride 50 ml 04/15/25 20:42 04/15/25 20:43 0.9 % Sodium Chloride 50 Ml Vial IV 04/15/25 20:43 50 ml ONCE ONE Administration ORDERS Category Date Time Status CT angio abdomen pelvis Stat Cat Scan 04/15/25 20:[address] angio head Stat Cat Scan 04/15/25 20:[address] angio neck Stat Cat Scan 04/15/25 20:[address] head/brain wo con Stat Cat Scan 04/15/25 20:14 Completed CTA Chest [CT angio chest - dissection] Stat Cat Scan 04/15/25 20:14 Completed CXR --portable [XR chest portable] Stat Exams 04/15/25 20:04 Completed BNP [NT Pro Brain Natriuretic Pep.] Stat Lab 04/15/25 19:43 Completed CBC w/Auto Diff [Complete Blood Count Auto Diff] Stat Lab 04/15/25 19:43 Completed CMP [Comprehensive Metabolic Panel] Stat Lab 04/15/25 19:43 Completed D-Dimer Stat Lab 04/15/25 19:43 Completed HIV Combo Routine Lab 04/15/25 19:43 Completed Hepatitis C Ab Qual. W/ RFX Routine Lab 04/15/25 19:43 Completed Lipase Stat Lab 04/15/25 19:43 Completed MAG [Magnesium] Stat Lab 04/15/25 19:43 Completed Trop I [Troponin I] Stat Lab 04/15/25 19:43 Completed Troponin I Q3H Lab 04/15/25 23:56 Completed Troponin I Q3H Lab 04/16/25 02:15 Ordered Medical Decision Narrative: Patient is an otherwise healthy 59-year-old female who presented to the emergency department with headache, high blood pressure jaw pain. On arrival, patient was initially hypertensive, vital signs were otherwise unremarkable. On exam, patient had an unremarkable exam. Patient had a normal neurologic exam, NIH of 0. Differential includes but not limited to: Intracranial process including mass, hemorrhage, ischemia, aortic dissection, ACS/CO, migraine, tension headache, hypertensive emergency versus urgency, amongst others. Patient's labs were reviewed and interpreted by myself: CBC showed no leukocytosis, hemoglobin was stable, D-dimer was elevated at 0.80. CMP was unremarkable, glucose was mildly elevated at 172. Creatinine was normal. Initial troponin less than 0.01. Lipase normal. CT head, CTA head and neck as well as CT chest and CT abdomen showed no acute pathology. EKG was reviewed and interpreted by myself and showed sinus tachycardia without acute ST or T wave changes concern for ischemia Patient continued to be hypertensive in the emergency department given her headache, I decided to treat her her with multiple medications including 10 of IV labetalol, Toradol, Benadryl, Compazine and tylenol. Patient's headache completely resolved and patient's blood pressure significantly improved to 140 systolic on multiple repeat reads. Patient with no signs of end organ damage therefore no concern for hypertensive emergency but likely asymptomatic hypertension at this time. I instructed that patient should take her blood pressure daily twice once in the morning once in the evening and keep a journal. If patient's blood pressure continued to be greater than 180 systolic or greater than 100 diastolic at home patient was prescribed lisinopril to start taking at home. Patient was advised to make a appointment with her primary care provider in 1 week as they may need to adjust or fix her medications. At this time, patient was discharged home in stable condition. Return precautions were discussed. Critical Care Critical Care Time Critical Care Time: No
--- NOTE | 2025-04-15 20:14 | CT_ITS ---
PROCEDURE INFORMATION: Exam: CT Head Without Contrast Exam date and time: 04/15/2025 8:32 PM Age: 59 years old Clinical indication: Other: Headache, high blood pressure TECHNIQUE: Imaging protocol: Computed tomography of the head without contrast. Radiation optimization: All CT scans at this facility use at least one of these dose optimization techniques: automated exposure control; mA and/or kV adjustment per patient size (includes targeted exams where dose is matched to clinical indication); or iterative reconstruction. COMPARISON: CT HEAD/BRAIN WO CON 11/01/2024 8:31 AM FINDINGS: Brain: The IACs are grossly normal. No extra-axial fluid collections. No evidence of acute intracranial hemorrhage. Cerebral/cerebellar hamm-white differentiation is well maintained. No intracranial mass lesions. No midline shift or herniation. Cerebral ventricles: Ventricles normal. Pituitary gland and sella: The sella is grossly normal. Paranasal sinuses: Minimal mucosal thickening in the inferior maxillary sinuses suggesting mild chronic sinus inflammatory disease. No fluid levels. The other paranasal sinuses are clear. Mastoid air cells: Visualized mastoid air cells are clear. Orbital cavities: No acute intraorbital findings. Bones: No acute osseous findings. Soft tissues: No acute soft tissue findings. Vasculature: Mild calcific atherosclerosis. Moderate basilar tortuosity. No asymmetric vascular hyperdensities suggestive of thrombosis are identified. IMPRESSION: No acute intracranial process. No intracranial hemorrhage or mass effect. No significant change from 11/01/2024.
--- NOTE | 2025-04-15 20:14 | CT_ITS ---
PROCEDURE INFORMATION: Exam: CTA Chest With Contrast Exam date and time: 04/15/2025 8:39 PM Age: 59 years old Clinical indication: Other: Dissection TECHNIQUE: Imaging protocol: Computed tomographic angiography of the chest with contrast. Exam focused on the arteries. 3D rendering (Not supervised by radiologist): MIP and/or 3D reconstructed images were created by the technologist. Radiation optimization: All CT scans at this facility use at least one of these dose optimization techniques: automated exposure control; mA and/or kV adjustment per patient size (includes targeted exams where dose is matched to clinical indication); or iterative reconstruction. Contrast material: ISO; Contrast volume: 80 ml; Contrast route: INTRAVENOUS (IV); COMPARISON: CT ANGIO CHEST PE PROTOCOL 06/16/2023 4:14 PM FINDINGS: Pulmonary arteries: No pulmonary emboli. Aorta: Unremarkable. No aortic aneurysm. No aortic dissection. Lungs: Unremarkable. No consolidation. No masses. Pleural spaces: Unremarkable. No pneumothorax. No pleural effusion. Heart: Unremarkable. No cardiomegaly. No pericardial effusion. Lymph nodes: Unremarkable. No enlarged lymph nodes. Bones/joints: Unremarkable. No acute fracture. Soft tissues: Unremarkable. IMPRESSION: No acute findings.
--- NOTE | 2025-04-15 20:14 | CT_ITS ---
PROCEDURE INFORMATION: Exam: CTA Neck With Contrast Exam date and time: 04/15/2025 8:35 PM Age: 59 years old Clinical indication: Other: Neck pain TECHNIQUE: Imaging protocol: Computed tomographic angiography of the neck with contrast. Exam focused on the cervical segments of the vasculature. 3D rendering (Not supervised by radiologist): MIP and/or 3D reconstructed images were created by the technologist. Radiation optimization: All CT scans at this facility use at least one of these dose optimization techniques: automated exposure control; mA and/or kV adjustment per patient size (includes targeted exams where dose is matched to clinical indication); or iterative reconstruction. Contrast material: ISO; Contrast volume: 80 ml; Contrast route: INTRAVENOUS (IV); COMPARISON: CT ANGIO NECK 06/16/2023 4:20 PM FINDINGS: Right common carotid artery: Mild tortuosity. No stenosis. No dissection or occlusion. Right internal carotid artery: Moderate proximal tortuosity. No stenosis. No dissection or occlusion. Right external carotid artery: Normal. No stenosis. No dissection or occlusion. Left common carotid artery: Mild tortuosity. No stenosis. No dissection or occlusion. Left internal carotid artery: Mild tortuosity. No stenosis. No dissection or occlusion. Left external carotid artery: Normal. No stenosis. No dissection or occlusion. Right vertebral artery: Normal. No stenosis. No dissection or occlusion. Left vertebral artery: V1 segment tortuosity. No stenosis. No dissection or occlusion. Brachiocephalic artery: The brachiocephalic artery is unremarkable. Right subclavian artery: The right subclavian artery is unremarkable. Left subclavian artery: The left subclavian artery is unremarkable. Aorta: The visualized aortic arch is unremarkable. Thyroid: 9 mm low-density nodule in the right thyroid lobe and 7 mm low-density nodule in the left thyroid lobe which do not require further evaluation based on current consensus criteria. Soft tissues: Exam sensitivity mildly limited by suboptimal arterial bolus intensity in the neck. No significant soft tissue swelling or hematoma. Bones/joints: No acute osseous abnormalities are identified. Moderate disc osteoarthritic changes C6-C7 and to a lesser degree C5-C6 and C7-T1. Mild-moderate canal stenosis C6-C7. Lungs: Granulomatous calcification in the posterior right pulmonary apex, with mild bilateral apical pleuroparenchymal scarring. IMPRESSION: 1. No acute vascular abnormalities. No evidence of arterial occlusion or significant stenosis. 2. Nonemergent findings detailed above. COMMENTS: Consistent with the [employer]'s Incidental Findings Committee white paper (J [employer] 2015): In patients aged 35 years and older with an incidental thyroid nodule equal to or greater than 1.[address], MRI or extrathyroidal US, further evaluation with dedicated thyroid US is recommended for patients with normal life expectancy and without comorbidities. For smaller nodules without suspicious features, no further evaluation or follow up is recommended. REFERENCES: NASCET CRITERIA. The degree of stenosis in the cervical segment of the internal carotid artery is based on NASCET criteria. Normal is no stenosis. Mild is less than 50% stenosis. Moderate is 50-69% stenosis. Severe is 70% to 99% stenosis. Total occlusion is no detectable patent lumen.
--- NOTE | 2025-04-15 20:14 | CT_ITS ---
PROCEDURE INFORMATION: Exam: CTA Head With Contrast, Arteriography Exam date and time: 04/15/2025 8:35 PM Age: 59 years old Clinical indication: Other: Headache, high blood pressure; Additional info: Headache, blood pressure TECHNIQUE: Imaging protocol: Computed tomographic angiography of the head with contrast. Exam focused on the arteries. 3D rendering (Not supervised by radiologist): MIP and/or 3D reconstructed images were created by the technologist. Radiation optimization: All CT scans at this facility use at least one of these dose optimization techniques: automated exposure control; mA and/or kV adjustment per patient size (includes targeted exams where dose is matched to clinical indication); or iterative reconstruction. Contrast material: ISO; Contrast volume: 80 ml; Contrast route: INTRAVENOUS (IV); COMPARISON: CT HEAD/BRAIN WO CON 04/15/2025 8:32 PM FINDINGS: ANTERIOR CIRCULATION: Right internal carotid artery: The right ICA petrous, cavernous, and supraclinoid segments are unremarkable. 2 mm infundibulum at the right posterior communicating artery origin incidentally noted. Right middle cerebral artery: Unremarkable. No occlusion or significant stenosis. No aneurysm. Right anterior cerebral artery: Unremarkable. No occlusion or significant stenosis. No aneurysm. The anterior communicating artery is unremarkable. Left internal carotid artery: The left ICA petrous, cavernous, and supraclinoid segments are unremarkable. Left middle cerebral artery: Unremarkable. No occlusion or significant stenosis. No aneurysm. Left anterior cerebral artery: Unremarkable. No occlusion or significant stenosis. No aneurysm. POSTERIOR CIRCULATION: Right vertebral artery: Small right vertebral artery, anatomic variant. No occlusion or significant stenosis. No aneurysm. Left vertebral artery: Left vertebral artery is dominant. No occlusion or significant stenosis. No aneurysm. Basilar artery: Mild basilar tortuosity. No occlusion or significant stenosis. No aneurysm. Right posterior cerebral artery: Small right posterior communicating artery present. No occlusion or significant stenosis. No aneurysm. Left posterior cerebral artery: Unremarkable. No occlusion or significant stenosis. No aneurysm. Veins: The dural venous sinuses and major cortical veins enhance appropriately without evidence of thrombosis. Brain: No enhancing brain lesions or vascular malformations are identified. Cerebral ventricles: No ventriculomegaly. Bones/joints: Unremarkable. No acute fracture. Soft tissues: Unremarkable. IMPRESSION: 1. No acute vascular abnormalities. No evidence of large vessel occlusion or significant stenosis. 2. No acute process is evident.
--- NOTE | 2025-04-15 20:14 | CT_ITS ---
PROCEDURE INFORMATION: Exam: CTA Abdomen and Pelvis With Contrast Exam date and time: 04/15/2025 8:39 PM Age: 59 years old Clinical indication: Other: Eval for dissection TECHNIQUE: Imaging protocol: Computed tomographic angiography of the abdomen and pelvis with contrast. Exam focused on the arteries. 3D rendering (Not supervised by radiologist): MIP and/or 3D reconstructed images were created by the technologist. Radiation optimization: All CT scans at this facility use at least one of these dose optimization techniques: automated exposure control; mA and/or kV adjustment per patient size (includes targeted exams where dose is matched to clinical indication); or iterative reconstruction. Contrast material: ISO; Contrast volume: 80 ml; Contrast route: INTRAVENOUS (IV); COMPARISON: CT ANGIO CHEST PE PROTOCOL 06/16/2023 4:14 PM FINDINGS: Aorta: No aortic aneurysm. No aortic dissection. Celiac and mesenteric arteries: No occlusion or significant stenosis. Renal arteries: No occlusion or significant stenosis. Right iliac arteries: No occlusion or significant stenosis. Left iliac arteries: No occlusion or significant stenosis. Liver: No mass. Fatty infiltration. Gallbladder and biliary ducts: Unremarkable. No calcified stones. No ductal dilation. Pancreas: Unremarkable. No mass. No ductal dilation. Spleen: Unremarkable. No splenomegaly. Adrenal glands: Unremarkable. No mass. Kidneys and ureters: 1.9 cm left renal cyst. No solid mass. No nephroureterolithiasis. No hydronephrosis. Stomach and bowel: Nonobstructive pattern. Appendix: No evidence of appendicitis. Intraperitoneal space: Unremarkable. No free air. No significant fluid collection. Lymph nodes: Unremarkable. No enlarged lymph nodes. Urinary bladder: Unremarkable. No mass. Reproductive: Unremarkable as visualized. Bones/joints: No acute fracture. Soft tissues: Unremarkable. IMPRESSION: 1. Unremarkable CTA. 2. Fatty liver infiltration.
[2025-04-15 20:18] LABS: Hematocrit 40.1 % (37.0-47.0); Hemoglobin 13.7 g/dL (12.2-16.2); Immature Granulocytes % 0.4 %; Mean Corpuscular HGB Conc 34.2 g/dL (31.8-35.4); Mean Corpuscular Hemoglobin 32.1 pg (27.0-31.2); Mean Corpuscular Volume 93.9 fl (81-99); Nucleated Red Blood Cells % 0 %; Platelet Count 293 K/mm3 (142-424); Red Blood Count 4.27 M/mm3 (4.20-5.40); Red Cell Distribution Width-SD 45.4 fL; White Blood Count 6.7 K/mm3 (4.8-10.8)
[2025-04-15] MEDS: ASPIRIN 325MG TABLET 325 MG PO (20:20)
[2025-04-15 20:22] LABS: Alanine Aminotransferase 22 U/L (12-78); Albumin Level 4.4 g/dl (3.5-5.0); Albumin/Globulin Ratio 1.5 (1.1-1.8); Alkaline Phosphatase 96 U/L (38-126); Anion Gap 11.6 mEq/L (5-15); Aspartate Amino Transferase 37 U/L (14-36); Bilirubin,Total 0.6 mg/dl (0.2-1.3); Blood Urea Nitrogen 10 mg/dl (7-17); Calcium 9.0 mg/dl (8.4-10.2); Carbon Dioxide 24 mmol/L (22.0-30.0); Chloride 104 mmol/L (98-107); Creatinine Clearance Estimated 143 mL/min (50-200); Creatinine,Serum 0.60 mg/dl (0.52-1.04); Estimated Glomerular Filt Rate 102 ml/min (>60); GFR (African American) 123 ML/MIN (>60); Globulin 3.0 g/dL (1.3-3.2); Glucose 172 mg/dl (74-100); Magnesium 1.6 mg/dl (1.6-2.3); Potassium 3.6 mmoL/L (3.5-5.1); Sodium 136 mmol/L (136-145); Total Protein,Serum 7.4 g/dl (6.3-8.2)
[2025-04-15 20:27] LABS: D-Dimer 0.80 ug/mL (0.0-0.5)
[2025-04-15 20:35] LABS: NT Pro Brain Natriuretic Pep. < 20.0 pg/mL (0-125)
[2025-04-15] MEDS: SODIUM CHLORIDE 0.9% 10ML SYR (RAD ONLY) 10 ML IV (20:42)
[2025-04-15] MEDS: IOPAMIDOL-370 (76%);100ML BOTTLE 80 ML IV ×2 (20:42→20:43)
[2025-04-15] MEDS: 0.9 % SODIUM CHLORIDE 50 ML VIAL IV ×2 (20:42→20:43)
[2025-04-15 20:52] LABS: Troponin I < 0.01 ng/ml (0.00-0.034)
[2025-04-15 21:03] LABS: Hepatitis C Ab Qual. W/ RFX NEGATIVE (Negative)
[2025-04-15 21:23] LABS: Lipase 96 U/L (23-300)
[2025-04-15] MEDS: LABETALOL 5MG/ML 20ML MDV 10 MG IV (21:29)
[2025-04-15] MEDS: PROCHLORPERAZINE 10MG/2ML VIAL 5 MG IV (21:38)
[2025-04-15] MEDS: KETOROLAC 30MG/ML VIAL 30 MG IV (21:39)
[2025-04-15] MEDS: ACETAMINOPHEN 500MG TAB 1000 MG PO (21:39)
--- NOTE | 2025-04-16 00:12 | PC.NURSE ---
Report received from Bronwyn THACKER Pt resting quietly in bed. Awaiting laboratory results for disposition
[2025-04-16 00:29] LABS: Troponin I < 0.01 ng/ml (0.00-0.034)
[2025-04-16 00:39] VITALS: BP 157/97; PULSE 88; RESP 16; TEMP 36.7; O2SAT 98
== END 2025-04-16 00:40 | disposition home or self-care (01) ==
PROVIDERS: Emergency Provider Student in an Organized Health Care Education/Training Program; PCP Nurse Practitioner Family
DX: R51.9 Headache, unspecified (principal); R68.84 Jaw pain; I10 Essential (primary) hypertension; R00.0 Tachycardia, unspecified
CPT/HCPCS: 70450; 70496; 70498; 71045; 71275; 74174; 80053; 83690; 83735; 83880; 84484; 85025; 85378; 86803; 87389; 93005; 96374; 96375; 99285; J0780; J1200; J1885; J1920; Q9967

== ENCOUNTER 2025-04-26 10:56 | Outpatient (CLI) | payer OTHER, SELFPAY ==
--- OUTSIDE RECORDS SUMMARY | 2017-12-25 10:00 | XMS_ITS | Encounter Summary ---
Author Organization [facility] Address [address] [place] [address] Care Team Providers Care Yard Rigger Name Role Phone Angel Hare MD Primary Care Provider [phone] Reason for Referral * Diagnostic Imaging (Routine) - Closed Specialty Diagnoses / Procedures Referred By Contac t Referred To Contact Radiology Diagnoses RLQ abdominal pain Procedures [place] Non[place] [address] [place] [address] Phone: tel: fax: [facility] Phone: tel: Referral ID Status Reason Start Date Expiration Date Visits Re quested Visits Authorized [id number] Closed 12/04/2017 12/04/2018 1 1 Reason for Visit * Diagnostic Imaging (Routine) - Closed Specialty Diagnoses / Procedures Referred By Contac t Referred To Contact Radiology Diagnoses RLQ abdominal pain Procedures [place] Non[place] [address] [place] [address] Phone: tel: fax: [facility] Phone: tel: Referral ID Status Reason Start Date Expiration Date Visits Re quested Visits Authorized [id number] Closed 12/04/2017 12/04/2018 1 1 Encounter Details Date Type Department Care Team (Latest Contact Info) Description 12/25/2017 10:00 AM EDT Hospital Encounter [facility] [place] [phone] RLQ abdominal pain Social History Tobacco Use [...] EDT PAT NAME: FREDERIC LOPEZ MED REC#: [id number] DA: [id number] PAT GEND: F PAT TYPE: O EXAM INAG: [id number] REF PHYS ALEX FOREMANLEY Indication ======== RLQ pain History ====== Medical History Past surgical history: Previous surgeries performed 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 ago [...] pelvic ultrasound Recommendation Follow-up as clinically indicated. 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 ago Previous Outcomes Gravida2 Para2 Method ====== Voluson E6, Transvaginal ultrasound examination, Color Doppler flowperformed, 3D ultrasound examination. View: Adequate view Uterus ====== Uterus:Normal Uterus position:Anteverted Myometrium:Homogeneous Endometrium:Ill-defined borders Cervix details:Normal Uterus long36 mm Uterus ap27 mm Uterus tr40 mm Uterus Vol20.4 cm Cervical yxrosi74.6 mm Uterus other findings:Small, anechoic area in posterior myometriummeasuring 4.4 x 3.9 x 2.2 mm. Right Ovary ========= Rt ovary:Normal Rt ovary D122.8 mm Rt ovary D210.0 mm Rt ovary D313.1 mm Left Ovary ======== Lt ovary:Not visualized Cul de Sac ========= Normal Impression ========= Normal pelvic ultrasound Recommendation Follow-up as clinically indicated. Geotechnical Engineering Technician: Chen Mcnamara RDMS Physician: Justice Foreman MD Electronically signed by: Justice Foreman MD at: 17:16 us Justice Foreman MD IMG US ORDERABLES Final Re sult documented in this encounter Visit Diagnoses Diagnosis RLQ abdominal pain Abdominal pain, right lower quadrant documented in this encounter Care Teams Yard Rigger Relationship Specialty Start Date End Date Angel Hare MD [facility] [address] [facility] [address] [place] [address] PCP - General Adolescent Medicine 12/04/17 documented as of this encounter
--- NOTE | 2025-04-26 10:58 | CA_ITS ---
APPROVED REPORT EXAM: Comprehensive 2D, Doppler, and color-flow Echocardiogram Technical Writer: Alison Melton RVT Ht: 5 ft 6 in Wt: 200lbs BSA: 2.00 BP: 120/80 mmHg Indications: TACHYCARDIA,HYPERTENSION 2D Dimensions LA Volume 33.90 mL LA Volume Index 16.95 mL/m2 (M/F) 16-34 M-Mode Dimensions RVDd 3.02 cm (0.9-2.6) LA Diam 2.85 cm (1.9-4.0) LVDd 4.07 cm (3.5-5.7) LVDs 2.69 cm (3.5-5.7) IVSd 1.34 cm (0.6-1.1) PWd 0.63 cm (0.6-1.1) EF (Teich) 63.20% FS 33.90% EDV (Teich) 72.90 mL TAPSE 2.14 (<1.7) ESV (Teich) 26.80 mL LV Diastology E Decel Time 230 (160-240 msec) E/A Ratio 0.7 Aortic Valve MAURA Index 1.60 cm2/m2 AoV Peak Pierre. 143.0 (50-130 cm/s) AO Peak GR. 8.20 mmHg AO Mean GR. 4.30 (<5 mmHg) AO VTI 28.9 (18-25 cm) MAURA (VTI) 3.28 (2.5-4.5 cm2) Mitral Valve MV E Max Pierre. 62.0 (40-130 cm/s) MV A Velocity 88.0 (40-130 cm/s) E/A Ratio 0.70 MV PHT 67.0 ms Pulmonary Valve PV Peak Velocity 79.0 (50-150 cm/s) Left Ventricle The left ventricle is normal size. Left ventricular systolic function is normal. The left ventricular ejection fraction is within the normal range. There is increased left ventricular wall thickness. There is normal LV segmental wall motion. Transmitral Doppler flow pattern suggests impaired LV relaxation. LVEF is 60%. Right Ventricle The right ventricle is normal size. The right ventricular systolic function is normal. Atria The left atrium size is normal. The right atrium size is normal. There is no color Doppler evidence of interatrial shunt. Aortic Valve The aortic valve opens well. There is no hemodynamically significant aortic valvular stenosis. No aortic regurgitation is present. Mitral Valve The mitral valve is normal in structure. No evidence of mitral valve stenosis. Trace mitral regurgitation is present. Tricuspid Valve The tricuspid valve leaflets are thin and pliable. Trace tricuspid regurgitation. There is insufficient TR jet to estimate RVSP. Pulmonic Valve The pulmonary valve is grossly normal in structure. Trace pulmonic valve regurgitation is present. Great Vessels The aortic root is normal in size. IVC is normal in size and collapses >50% with inspiration. Pericardium There is no pericardial effusion. Other Information Study Quality: Fair Conclusion Normal biventricular systolic function. No significant valvular stenosis or regurgitation. Electronically signed by : Edelmira Clarke MD 04/27/2025 13:02:49
--- OUTSIDE RECORDS SUMMARY | 2025-04-26 11:03 | XMS_ITS | Encounter Summary ---
Author Organization [facility] Address [address] [place] [address] Care Team Providers Care Line Installation Supervisor Name Role Phone Angel Hare MD Primary Care Provider [phone] Encounter Details Date Type Department Care Team (Late st Contact Info) Description 11/16/2024 Results Follow-Up [facility] PATIENT ACCESS [address] [id number] Tuan Petty MD [address] [facility] [address] [place] [address] Social History Tobacco Use Types Packs/Day Years [...] on filedocumented in this encounter Care Teams Line Installation Supervisor Relationship Specialty Start Date End Date Angel Hare MD [address] [place] [address] PCP - General Adolescent Medicine 12/04/17 documented as of this encounter
--- OUTSIDE RECORDS SUMMARY | 2025-04-26 11:03 | XMS_ITS | Clinical Summary ---
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
[address] [place] [address], * SCANNED - COLONOSCOPY (01/31/2018) us Tuan Petty MD CHART REVIEW TABS Final Result from Last 3 Months or Most Recently Relevant to Health Maintenance Insurance R Care Teams Agriculture Research Director Relationship Specialty Start Date End Date Angel Hare MD [address] [place] [facility] [address] [place] [address] PCP - General Adolescent Medicine 12/04/17
== END 2025-04-26 23:59 | disposition home or self-care (01) ==
LOC: RT 10:57
PROVIDERS: PCP Nurse Practitioner Family; Visit Provider Nurse Practitioner Family
DX: R00.0 Tachycardia, unspecified (principal); I10 Essential (primary) hypertension
CPT/HCPCS: 93306

== ENCOUNTER 2025-05-31 09:31 | Outpatient (CLI) | payer OTHER, SELFPAY ==
--- OUTSIDE RECORDS SUMMARY | 2017-12-25 09:00 | XMS_ITS | Encounter Summary ---
Author Organization [facility] Address [address] [place] [address] Care Team Providers Care Brain Surgeon Name Role Phone Angel Hare MD Primary Care Provider [phone] Reason for Referral * Diagnostic Imaging (Routine) - Closed Specialty Diagnoses / Procedures Referred By Contac t Referred To Contact Radiology Diagnoses RLQ abdominal pain Procedures [place] [address] [place] [address] Phone: tel: fax: [address] [address] Phone: tel: fax: Referral ID Status Reason Start Date Expiration Date Visits Re quested Visits Authorized [id number] Closed 12/04/2017 12/04/2018 1 1 Reason for Visit * Diagnostic Imaging (Routine) - Closed Specialty Diagnoses / Procedures Referred By Contac t Referred To Contact Radiology Diagnoses RLQ abdominal pain Procedures US Non-ob Transvaginal Justice Foreman MD [address] [place] [address] Phone: tel: fax: [address] [address] Phone: tel: fax: Referral ID Status Reason Start Date Expiration Date Visits Re quested Visits Authorized [id number] Closed 12/04/2017 12/04/2018 1 1 Encounter Details Date Type Department Care Team (Latest Contact Info) Description 12/25/2017 10:00 AM EDT Hospital Encounter [facility] [address] [facility] [address] [place] [phone] RLQ abdominal pain Social History Tobacco Use [...] EDT PAT NAME: FREDERIC LOPEZ MED REC#: [id number] DA: [id number] PAT GEND: F PAT TYPE: O EXAM INGA: [id number] 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 ago [...] pelvic ultrasound Recommendation Follow-up as clinically indicated. [place]: Chen Mcnamara RDMS Physician: Justice Foreman MD Electronically signed by: Justice Foreman MD at: 17:16 Procedure Note Justice Foreman MD - 12/25/2017 PAT NAME: FREDERIC LOPEZ MED REC#: [id number] DA: [id number] PAT GEND: F PAT TYPE: O EXAM INGA: [id number] REF PHYS JUSTICE FOREMAN Indication ======== RLQ pain History ====== Medical History Past surgical history:Previous surgeries performed Surgery:D&C, Tubal ACCORDION TUNER History Other:LMP: > 5 yrs. ago Previous Outcomes Gravida2 Para2 Method ====== Voluson E6, Transvaginal ultrasound examination, Color Doppler flowperformed, 3D ultrasound examination. View: Adequate view Uterus ====== Uterus:Normal Uterus position:Anteverted Myometrium:Homogeneous Endometrium:Ill-defined borders Cervix details:Normal Uterus long36 mm Uterus ap27 mm Uterus tr40 mm Uterus Vol20.4 cm Cervical mcqymp23.6 mm Uterus other findings:Small, anechoic area in posterior myometriummeasuring 4.4 x 3.9 x 2.2 mm. Right Ovary ========= Rt ovary:Normal Rt ovary D122.8 mm Rt ovary D210.0 mm Rt ovary D313.1 mm Left Ovary ======== Lt ovary:Not visualized Cul de Sac ========= Normal Impression ========= Normal pelvic ultrasound Recommendation Follow-up as clinically indicated. [place]: Chen Mcnamara RDNM Physician: Justice Foreman MD Electronically signed by: Justice Foreman MD at: 17:16 us Justice Foreman MD IMG US ORDERABLES Final Re sult documented in this encounter Visit Diagnoses Diagnosis RLQ abdominal pain Abdominal pain, right lower quadrant documented in this encounter Care Teams Brain Surgeon Relationship Specialty Start Date End Date Angel Hare MD [facility] [address] [place] [address] PCP - General Adolescent Medicine 12/04/17 documented as of this encounter
--- OUTSIDE RECORDS SUMMARY | 2025-05-31 09:33 | XMS_ITS | Encounter Summary ---
Author Organization [facility] Address [address] [place] [address] Care Team Providers Care Recycling Assistant Name Role Phone Angel Hare MD Primary Care Provider [phone] Encounter Details Date Type Department Care Team (Late st Contact Info) Description 11/16/2024 Results Follow-Up [facility] PATIENT ACCESS [address] [phone] Tuan Petty MD [address] [facility] [address] [place] [address] Social History Tobacco Use Types Packs/Day Years Used Date Smoking Tobacco: Former Cigarettes 1986 Smokeless Tobacco: Never Alcohol Use Standard [...] on filedocumented in this encounter Care Teams Recycling Assistant Relationship Specialty Start Date End Date Angel Hare MD [address] [place] [address] PCP - General Adolescent Medicine 12/04/17 documented as of this encounter
--- OUTSIDE RECORDS SUMMARY | 2025-05-31 09:33 | XMS_ITS | Clinical Summary ---
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
[address] [place] [address], * SCANNED - COLONOSCOPY (01/31/2018) us Tuan Petty MD CHART REVIEW TABS Final Result from Last 3 Months or Most Recently Relevant to Health Maintenance Insurance R Care Teams Marketing Content Coordinator Relationship Specialty Start Date End Date Angel Hare MD [address] [place] [facility] [address] [place] [address] PCP - General Adolescent Medicine 12/04/17
--- OUTSIDE RECORDS SUMMARY | 2025-05-31 09:33 | XMS_ITS | Clinical Summary ---
Author Organization [facility] Address [address] 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 Other info: Otto Acosta's [...] Date Last Done Comments [facility]-Depression Screening 1964 [facility]-Infant/Child/Adol SDOH Screenings 1964 [facility]- SDOH Screenings 1982 [facility]-Adult SDOH Screenings 1982 [facility]-Pap Smear 1985 [facility]-Cervical Cancer Screening 1994 [facility]-HPV/Cotest 1994 CT Colonography 2009 Colonoscopy 2009 FIT-DNA 2009 FIT 2009 FOBT 2009 Sigmoidoscopy 2009 [facility]-Colorectal Cancer Screening 2009 [facility]-Pneumococcal Vaccine: 50 + Years (1 of 1 - PCV) 2014 [facility]-Zoster Vaccines (1 of 2) 2014 [id number] Vaccine (1 - 2023- season) 2025 [facility]-Influenza [...] complete this topic Insurance YENNI Care Teams Janitorial Supervisor Relationship Specialty Start Date End Date Angel Hare MD [address] [place] [address] PCP - General 12/09/20
== END 2025-05-31 23:59 | disposition home or self-care (01) ==
LOC: RT 09:32
PROVIDERS: PCP Nurse Practitioner Family; Visit Provider Nurse Practitioner
DX: I49.1 Atrial premature depolarization (principal); I49.3 Ventricular premature depolarization; I47.20 Ventricular tachycardia, unspecified
CPT/HCPCS: 93270

== ENCOUNTER → 2025-06-03 06:44 | Outpatient (CLI) | payer OTHER, SELFPAY ==
--- OUTSIDE RECORDS SUMMARY | 2017-12-25 09:00 | XMS_ITS | Encounter Summary ---
Author Organization [facility] Address [address] [place] [address] Care Team Providers Care Back Strip Machine Operator Name Role Phone Angel Hare MD Primary Care Provider [phone] Reason for Referral * Diagnostic Imaging (Routine) - Closed Specialty Diagnoses / Procedures Referred By Contac t Referred To Contact Radiology Diagnoses RLQ abdominal pain Procedures [place] [address] [place] [address] Phone: tel: fax: [address] [phone] Phone: tel: fax: Referral ID Status Reason Start Date Expiration Date Visits Re quested Visits Authorized [id number] Closed 12/04/2017 12/04/2018 1 1 Reason for Visit * Diagnostic Imaging (Routine) - Closed Specialty Diagnoses / Procedures Referred By Contac t Referred To Contact Radiology Diagnoses RLQ abdominal pain Procedures US Non-ob Transvaginal Justice Foreman MD [address] [place] [address] Phone: tel: fax: [address] [address] Phone: tel: fax: Referral ID Status Reason Start Date Expiration Date Visits Re quested Visits Authorized [id number] Closed 12/04/2017 12/04/2018 1 1 Encounter Details Date Type Department Care Team (Latest Contact Info) Description 12/25/2017 10:00 AM EDT Hospital Encounter [facility] [address] [facility] [address] [place] [phone] RLQ abdominal pain Social History Tobacco Use [...] EDT PAT NAME: FREDERIC LOPEZ MED REC#: [id number] DA: [id number] PAT GEND: F PAT TYPE: O EXAM INGA: [id number] 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 ago [...] pelvic ultrasound Recommendation Follow-up as clinically indicated. Front Desk Clerk: Chen Mcnamara RDMS Physician: Justice Foreman MD Electronically signed by: Justice Foreman MD at: 17:16 Procedure Note Justice Foreman MD - 12/25/2017 PAT NAME: FREDERIC LOPEZ MED REC#: [id number] DA: [id number] PAT GEND: F PAT TYPE: O EXAM INGA: [id number] REF PHYS JUSTICE FOREMAN Indication ======== RLQ pain History ====== Medical History Past surgical history:Previous surgeries performed Surgery:D&C, Tubal DRAWING TENDER History Other:LMP: > 5 yrs. ago Previous Outcomes Gravida2 Para2 Method ====== Voluson E6, Transvaginal ultrasound examination, Color Doppler flowperformed, 3D ultrasound examination. View: Adequate view Uterus ====== Uterus:Normal Uterus position:Anteverted Myometrium:Homogeneous Endometrium:Ill-defined borders Cervix details:Normal Uterus long36 mm Uterus ap27 mm Uterus tr40 mm Uterus Vol20.4 cm Cervical tolkwp37.6 mm Uterus other findings:Small, anechoic area in posterior myometriummeasuring 4.4 x 3.9 x 2.2 mm. Right Ovary ========= Rt ovary:Normal Rt ovary D122.8 mm Rt ovary D210.0 mm Rt ovary D313.1 mm Left Ovary ======== Lt ovary:Not visualized Cul de Sac ========= Normal Impression ========= Normal pelvic ultrasound Recommendation Follow-up as clinically indicated. Front Desk Clerk: Chen Mcnamara RDPA Physician: Jusitce Foreman MD Electronically signed by: Justice Foreman MD at: 17:16 us Justice Foreman MD IMG US ORDERABLES Final Re sult documented in this encounter Visit Diagnoses Diagnosis RLQ abdominal pain Abdominal pain, right lower quadrant documented in this encounter Care Teams Back Strip Machine Operator Relationship Specialty Start Date End Date Angel Hare MD [facility] [address] [place] [address] PCP - General Adolescent Medicine 12/04/17 documented as of this encounter
--- OUTSIDE RECORDS SUMMARY | 2025-06-03 06:47 | XMS_ITS | Clinical Summary ---
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
[address] [place] [address], * SCANNED - COLONOSCOPY (01/31/2018) us Tuan Petty MD CHART REVIEW TABS Final Result from Last 3 Months or Most Recently Relevant to Health Maintenance Insurance R Care Teams Brass Polisher Relationship Specialty Start Date End Date Angel Hare MD [address] [place] [facility] [address] [place] [address] PCP - General Adolescent Medicine 12/04/17
--- OUTSIDE RECORDS SUMMARY | 2025-06-03 06:47 | XMS_ITS | Clinical Summary ---
Author Organization [facility] Address [address] 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
--- OUTSIDE RECORDS SUMMARY | 2025-06-03 06:47 | XMS_ITS | Encounter Summary ---
Author Organization [facility] Address [address] [place] [address] Care Team Providers Care Sidehand Name Role Phone Angel Hare MD Primary Care Provider [phone] Encounter Details Date Type Department Care Team (Late st Contact Info) Description 11/16/2024 Results Follow-Up [facility] PATIENT ACCESS [address] [id number] Tuan Petty MD [address] [facility] [address] [place] [address] Social History Tobacco Use Types Packs/Day Years [...] on filedocumented in this encounter Care Teams Sidehand Relationship Specialty Start Date End Date Angel Hare MD [address] [place] [address] PCP - General Adolescent Medicine 12/04/17 documented as of this encounter
--- OUTSIDE RECORDS SUMMARY | 2025-06-03 06:47 | XMS_ITS ---
Author Organization Unknown ENCOUNTERS Encounter Performer Location Date Diagnosis Diagnosis Status Emergency [facility] [address] [facility] [address] [place] [address] [id number] ALEXIS Pre Admit [facility] [address] [facility] [address] [place] [address] [id number] Emergency [facility] [address] [facility] [address] [place] [address] [id number] ALEXIS Pre Admit [facility] [address] [facility] [address] [place] [address] [id number] Emergency [facility] [address] [facility] [address] [place] [address] [id number] ALEXIS Pre Admit [facility] [address] [facility] [address] [place] [address] [id number] Pre Admit [facility] [address] [facility] [address] [place] [address] [id number] Emergency [facility] [address] [place] [address] [id number] ALEXIS Pre [facility]mit [facility] [address] [facility] [address] [place] [address] [id number] Emergency [facility] [address] [facility] [address] [place] [address] [id number] ALEXIS Emergency [facility] [address] [place] [address] [facility] [address] [place] [address] [id number] ALEXIS *Note: Encounters from your own facility or health system may be excluded. Allergies, Adverse Reactions, Alerts Allergen Type Severity Identification Date ciprofloxacin drug allergy 0 [id number] Medications Name Date Quantity Days Supplied GPI Number
--- OUTSIDE RECORDS SUMMARY | 2025-06-03 06:47 | XMS_ITS | Data Portability ---
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 Migraine, better on Aimovig needs increase to Aimovig 140 mg per month Plan: 1. change to Aimovig 140 mg injection Not available 12/23/2018 20:09:29 09/16/2019 09/16/2019 Assessment: 1. migraine 2. Great responder to Aimovig 3. Follows with Dr. Tremaine Perrin in [place] Plan: 1. Continue Aimovig 2. renew and continue current medications 3. Start ondansetron 4 mg tablet as directed 4. follow-up in 6 months Not available 09/18/2019 13:46:47 Plan of Treatment Reminders Order Date Submit Date Provider Last Modified By Organization Details Last Modified Time Details Appointments RHEUM RECHECK 2024 03:30P M HUDSON FREED MD Not available Not available Not available Lab CBC w/ auto diff 2023 024 [email or web address] [facility], [address] [place] [address], [id number], 04/21/2024 08:24:18 CMP, serum or plasma [address] [facility], [address] [place] [address], [id number], 04/21/2024 08:24:18 ESR (erythro cyte sediment ation rate), blood [address] [facility], [address] [place] [address], [id number], 04/21/2024 08:24:19 C reactive protein, QN, serum or plasma [address] [facility], [address] [place] [address], [id number], 04/21/2024 08:24:19 ccp (cyclic citrulli nated peptide) iga+igg, serum 2023 024 [facility], [address] [place] [address], [id number], 03/20/2024 19:39:01 PEDRO (antinuc lear antibodi es) titer + pattern, ifa, serum [address], [address] [place] [address], [id number], 03/25/2024 08:12:19 PEDRO (antinuc lear antibodi es) panel, serum 2023 024 [facility], [address] [place] [address], [id number], 03/20/2024 17:07:34 C reactive protein, QN, serum or plasma 2023 024 [facility], [address] [place] [address], [id number], 03/18/2024 16:10:48 ESR (erythro cyte sediment ation rate), blood 2023 024 [facility], [address] [place] [address], [id number], 03/18/2024 16:16:54 Referral None recorded . Procedures None recorded . Surgeries None recorded . Imaging XR, chest, 2 view 2023 024 [facility], [address] [facility], [place], [address], 03/18/2024 15:20:28 Medication Orders Compound Magic Mouthwas h #10 (Dipheny dramine/ Nystatin /Maalox/ Lidocain e 1:1:1:1) 2024 025 [facility], [address] [place] [address] [place], [id number], 09/02/2024 09:01:24 leflunom francisco 20 mg tablet [address] [facility], [address] [place] [address] E [place], [id number], 09/02/2024 08:19:23 predniso ne 5 mg tablet 2023 024 [facility], [address] [place] [address] E [place], [id number], 04/14/2024 13:17:56 predniso ne 5 mg tablet 2023 024 [facility], [address] [place] [address] E [place], [id number], 04/14/2024 09:17:04 hydroxyc hloroqui ne 200 mg tablet [address], [address] [place] [address] E [place], [id number], 04/14/2024 08:27:24 ondanset matt HCl 4 mg tablet [address] [facility], [address] [place] [address] [address] [place] [place], [id number], 04/14/2024 08:27:51 tramadol 50 mg tablet [address], [address] [place] [address] [address] [place], [id number], 04/14/2024 08:27:35 sumatrip marin 100 mg tablet [address] [facility], [address] [place] [address] [address] [place] [place], [id number], 04/14/2024 08:27:48 tramadol 50 mg tablet [address], [address] [place] [address] E [place]any [place], [id number], 04/14/2024 08:27:35 Aimovig Autoinje ctor 140 mg/mL subcutan eous auto-inj chad [address], [address] [place] [address] E Geovany [place], [id number], 04/14/2024 08:27:46 Patient TargetsNo targets recorded. Patient Instructions Encounter Date Encounter Id Patient Instructions Last Modified By Organization Details Last Modified Time 12/23/2018 [id number] migraine aura without a headache: care instructions [email or web address] Not available 12/25/2018 10:26:05 Spent 35 total minutes with the patient today. Greater than 50% of this time was spent counseling/coordi nation of care as documented in my assessment and plan above. [email or web address] Not available 12/23/2018 20:10:21 09/16/2019 [id number] nausea and vomiting: care instructions Not available 09/17/2019 13:11:21 migraine aura without a headache: care instructions Not available 09/17/2019 13:11:21 eating healthy foods: care instructions Not available 09/17/2019 13:11:21 Reason for Referral None Reported. Results Created Date Observation Date Name Description Value Unit Range Abnormal Flag Note LastModifiedBy Organization Detail LastModifiedTime 03/18/20 24 03/18/2024 C REACT AYALA PROTE IN C reactive protein 0.32 mg/dL 0.00-0 .49 normal Not Available [facility] [address] [place], [address], 03/18/2024 16:10:48 03/18/20 24 03/18/2024 ESR, AUTOM ATED ESR, automated 7 mm 0-29 normal Not Available [facility] [address] [place], [address], 03/18/2024 16:16:54 03/18/20 24 03/20/2024 PEDRO W/ [...] rns (http s://d oi.or g/10. 1515/ ccl- 0052) For addit ional infor radha pena e refer to http: //gerry browne.Que stDia gnost ics.c om/fa q/FAQ 177 (This link is being provi ded for infor inga nal/ educa matthew l purpo ses only. ) Not Available [facility] [address] [place] [address], [phone], 03/20/2024 17:07:34 03/18/2003/20/2024 ANTI- CCP anti-ccp <16 units normal Refer ence Range Negat ayala: <20 Weak Posit ayala: 20-39 Moder ate Posit ayala: 40-59 Stron g Posit ayala: >59 Not Available [facility] [address] [place] [address], [id number], 03/20/2024 19:39:01 05/18/2005/18/2024 COMPL ETE BLOOD COUNT white blood cells 4.3 10*3/ uL 3.8-10 .8 normal Not Available [facility] [address] [place] [address], [address], 05/18/2024 08:57:15 05/18/2005/18/2024 COMPL ETE BLOOD COUNT red blood cells 4.16 10*6/ uL 3.80-5 .20 normal Not Available [facility] [address] [place] [address], [address], 05/18/2024 08:57:15 05/18/20 24 05/18/2024 COMPL ETE BLOOD COUNT hemoglobin 13.5 g/dL 12.0-1 6.0 normal Not Available [facility] [address] [place] [address], [address], 05/18/2024 08:57:15 05/18/2005/18/2024 COMPL ETE BLOOD COUNT hematocrit 38.8 % 35.0-4 7.0 normal Not Available [facility] [address] [place] [address], [address], 05/18/2024 08:57:15 05/18/2005/18/2024 COMPL ETE BLOOD COUNT MCV 93 fL 80-100 normal Not Available [facility] [address] [place] [address], [address], 05/18/2024 08:57:15 05/18/20 24 05/18/2024 COMPL ETE BLOOD COUNT MCH 32 pg 26-35 normal Not Available [facility] [address] [place] [address], [address], 05/18/2024 08:57:15 05/18/20 24 05/18/2024 COMPL ETE BLOOD COUNT MCHC 35 g/dL 32-36 normal Not Available [facility] [address] [place] [address], [address], 05/18/2024 08:57:15 05/18/2005/18/2024 COMPL ETE BLOOD COUNT RDW 14.2 % 11.0-1 5.0 normal Not Available [facility] [address] [place] [address], [address], 05/18/2024 08:57:15 05/18/20 24 05/18/2024 COMPL ETE BLOOD COUNT MPV 7.2 fL 6.2-10 .5 normal Not Available [facility] [address] [place] [address], [address], 05/18/2024 08:57:15 05/18/20 24 05/18/2024 COMPL ETE BLOOD COUNT platelet count 253 10*3/ uL 150-40 0 normal Not Available [facility] [address] [place] [address], [address], 05/18/2024 08:57:15 05/18/20 24 05/18/2024 COMPL ETE BLOOD COUNT neutrophil,a bsolute 1.5 10*3/ uL 1.6-8. 4 low Not Available [facility] [address] [place] [address], [address], 05/18/2024 08:57:15 05/18/20 24 05/18/2024 COMPL ETE BLOOD COUNT lymphocyte,a bsolute 2.2 10*3/ uL 0.4-5. 1 normal Not Available [facility] [address] [place] [address], [address], 05/18/2024 08:57:15 05/18/20 24 05/18/2024 COMPL ETE BLOOD COUNT monocyte,abs olute 0.5 10*3/ uL 0.0-1. 2 normal Not Available [facility] [address] [place] [address], [address], 05/18/2024 08:57:15 05/18/2005/18/2024 COMPL ETE BLOOD COUNT eosinophil,a bsolute 0.1 10*3/ uL 0.0-0. 8 normal Not Available [facility] [address] [place] [address], [address], 05/18/2024 08:57:15 05/18/20 24 05/18/2024 COMPL ETE BLOOD COUNT basophil,abs olute 0.0 10*3/ uL 0.0-0. 3 normal Smear revie wed to confi rm cell morph ology . Not Available [facility] [address] [place] [address], [address], 05/18/2024 08:57:15 05/18/20 24 05/18/2024 COMPL ETE BLOOD COUNT % neutrophils 34.3 % 42.0-7 8.0 low Not Available [facility] [address] [place] [address], [address], 05/18/2024 08:57:15 05/18/20 24 05/18/2024 COMPL ETE BLOOD COUNT % lymphocytes 52.7 % 11.0-4 7.0 high Not Available [facility] [address] [place] [address], [address], 05/18/2024 08:57:15 05/18/20 24 05/18/2024 COMPL ETE BLOOD COUNT % monocytes 10.6 % 0.0-11 .0 normal Not Available [facility] [address] [place] [address], [address], 05/18/2024 08:57:15 05/18/2005/18/2024 COMPL ETE BLOOD COUNT % eosinophils 1.4 % 0.0-7. 0 normal Not Available [facility] [address] [place] [address], [address], 05/18/2024 08:57:15 05/18/20 24 05/18/2024 COMPL ETE BLOOD COUNT % basophils 1.0 % 0.0-3. 0 normal Not Available [facility] [address] [place] [address], [address], 05/18/2024 08:57:15 05/18/2005/18/2024 COMPL ETE BLOOD COUNT nucleated red cells 0.1 % 0.0-0. 9 normal Not Available [facility] [address] [place] [address], [address], 05/18/2024 08:57:15 05/18/2005/18/2024 COMPL ETE BLOOD COUNT nucleated RBCs, absolute 0.00 10*3/ uL not estab. normal Not Available [facility] [address] [place] [address], [address], 05/18/2024 08:57:15 05/18/2005/18/2024 MORPH OLOGY RBC morphology NORMAL normal Not Available [facility] [address] [place] [address], [address], 05/18/2024 08:57:17 05/18/2005/18/2024 MORPH OLOGY platelet morphology NORMAL normal Not Available [facility] [address] [place] [address], [address], 05/18/2024 08:57:17 05/18/2005/18/2024 C REACT AYALA PROTE IN C reactive protein 0.26 mg/dL 0.00-0 .49 normal Not Available [facility] [address] [place] [address], [address], 05/18/2024 09:01:31 05/18/20 24 05/18/2024 COMP. METAB OLIC PANEL glucose 93 mg/dL 74-100 normal Not Available [facility] [address] [place] [address], [address], 05/18/2024 09:01:34 05/18/20 24 05/18/2024 COMP. METAB OLIC PANEL blood urea nitrogen 12 mg/dL 6-20 normal Not Available [facility] [address] [place] [address], [address], 05/18/2024 09:01:34 05/18/20 24 05/18/2024 COMP. METAB OLIC PANEL creatinine 0.64 mg/dL 0.50-0 .95 normal Not Available [facility] [address] [place] [address], [address], 05/18/2024 09:01:34 05/18/20 24 05/18/2024 COMP. METAB OLIC PANEL BUN/creatini ne ratio 19 (calc ) 10-20 normal Not Available [facility] [address] [place] [address], [address], 05/18/2024 09:01:34 05/18/20 24 05/18/2024 COMP. METAB OLIC PANEL sodium 139 mmol/ L 136-14 5 normal Not Available [facility] [address] [place] [address], [address], 05/18/2024 09:01:34 05/18/20 24 05/18/2024 COMP. METAB OLIC PANEL potassium 3.8 mmol/ L 3.4-5. 0 normal Not Available [facility] [address] [place] [address], [address], 05/18/2024 09:01:34 05/18/20 24 05/18/2024 COMP. METAB OLIC PANEL chloride 102 mmol/ L 98-107 normal Not Available [facility] [address] [place] [address], [address], 05/18/2024 09:01:34 05/18/20 24 05/18/2024 COMP. METAB OLIC PANEL carbon dioxide 26 mmol/ L 22-31 normal Not Available [facility] [address] [place] [address], [address], 05/18/2024 09:01:34 05/18/20 24 05/18/2024 COMP. METAB OLIC PANEL anion gap 11 (calc ) 7-25 normal Not Available [facility] [address] [place] [address], [address], 05/18/2024 09:01:34 05/18/20 24 05/18/2024 COMP. METAB OLIC PANEL calcium 9.0 mg/dL 8.6-10 .2 normal Not Available [facility] [address] [place] [address], [address], 05/18/2024 09:01:34 05/18/20 24 05/18/2024 COMP. METAB OLIC PANEL total protein 6.8 g/dL 6.4-8. 3 normal Not Available [facility] [address] [place] [address], [address], 05/18/2024 09:01:34 05/18/20 24 05/18/2024 COMP. METAB OLIC PANEL albumin 4.0 g/dL 3.5-5. 2 normal Not Available [facility] [address] [place] [address], [address], 05/18/2024 09:01:34 05/18/20 24 05/18/2024 COMP. METAB OLIC PANEL globulin 2.8 1.5-4. 5 normal Not Available [facility] [address] [place] [address], [address], 05/18/2024 09:01:34 05/18/20 24 05/18/2024 COMP. METAB OLIC PANEL albumin/glob ulin ratio 1.4 (calc ) 1.1-2. 5 normal Not Available [facility] [address] [place] [address], [address], 05/18/2024 09:01:34 05/18/20 24 05/18/2024 COMP. METAB OLIC PANEL bilirubin, total 0.3 mg/dL 0.1-1. 2 normal Not Available [facility] [address] [place] [address], [address], 05/18/2024 09:01:34 05/18/20 24 05/18/2024 COMP. METAB OLIC PANEL alkaline phosphatase 96 U/L 30-121 normal Not Available [facility] [address] [place], [address], 05/18/2024 09:01:34 05/18/20 24 05/18/2024 COMP. METAB OLIC PANEL AST 19 U/L 0-32 normal Not Available [facility] [address] [place] [address], [address], 05/18/2024 09:01:34 05/18/20 24 05/18/2024 COMP. METAB OLIC PANEL ALT 14 U/L 0-33 normal Not Available [facility] [address] [place], [address], 05/18/2024 09:01:34 05/18/20 24 05/18/2024 COMP. METAB OLIC PANEL GFR 101 >= 60 normal NOT E New calcu latio n for GFR (CKD- EPI 2020) is formu lated witho ut race adjus tment facto rs at the recom menda tion of the [employer] and Ameri can Socie ty of Nephr ology . This calcu latio n has not been valid ated in pregn ant women . For pedia margy patie nts refer to https ://azeem verma.shannan mtz/pr manav calhoun s/DELLAO QI/gf r_cal culat orPed Not Available [facility] [address] [place], [address], 05/18/2024 09:01:34 05/18/20 24 05/18/2024 ESR, AUTOM ATED ESR, automated 4 mm 0-29 normal Not Available [facility] [address] [place] [address], [address], 05/18/2024 13:31:35 03/18/20 24 03/18/2024 XR, chest , [address] [address] Samara mullins Name: AUDREY mullins : 1964 Samara mullins Orderi ng Provid er: HUDSON VILLEGAS EXAM DATE: 2023 EXAM: XR CHEST PA/LAT [...] Cochran MD on 024 3:15 PM [email or web address] [facility] [address] [place] [address], [address], 03/25/2024 11:25:34 04/10/20 24 01/22/2024 MRI proce dure (PROC ) No observ ation record ed. [email or web address] Not Available 2023 16:18:41 04/10/20 24 11/26/2023 MRI, ankle , w/o contr ast No observ ation record ed. BARCODE Not Available 2023 13:28:19 Result Notes Documentation Provider Name and Address Organization Details Recorded Time Xr, Chest, 2 View : [address] [address] Patient Name: AUDREY ACOSTA Patient : 1965 Patient Ordering Provider: HUDSON FREED EXAM DATE: 03/18/2024 EXAM: XR CHEST PA/LAT CLINICAL INFORMATION: Physical exam IMAGES PROVIDED: PA and lateral views of the chest. COMPARISON: None. FINDINGS: Heart size is within normal limits. Lung main are clear. IMPRESSION: No acute cardiopulmonary changes. Interpreted By: Tulio Cochran MD Amira Torres [facility] 03/25/2024 11:25:34 Problems Name Problem SNOMED Code Status Onset Date Resolution Date Notes Provider Name and Address Organization Details Recorded Time Migraine with aura 6808712 Active 2015 From Automated Load;Provi muna: Elizabeth Hendrix;Stat us: Active Not Available [facility] 6 08:40:00 Problem Notes None recorded. Procedures Surgical History Date Name Laterality Status Provider Name and Address Organization Details Recorded Time Tubal Ligation completed [facility] 09/25/2016 15:36:30 Imaging Results None recorded. Procedure Notes None recorded. Medical Equipment None Reported. Allergies Allergen ID Allergen Name Allergen Category Reaction Reaction Severity Criticality Documentation Date Start Date Code Code System Note Provider Name and Address Organization Details Recorded Time 229421 ciproflox acin medicatio n Not available Not available Not available 09/27/2016 2551 RxNorm Jacqueline Ashton [facility] 7 10:44:55 Medications Name Sig Start [...] taking Not Available Not Available Not Available [facility] ODT 75 mg disintegr ating tablet DISSOLVE ONE TABLET in MOUTH EVERY DAY NEEDED FOR migraine active Not Available Not Available No t Available Vitals Date Recorded Body weight Heart rate Oxygen saturation Oxygen saturation in Arterial blood by Pulse oximetry Systolic And Diastolic Provider Name and Address Organization Details Last Updated DateTime 5 63431.4 g 86 /min 96 % 96 % 110/80 mm[Hg] Demi [facility] 5 08:21:33 Date Recorded Body height Body mass index (BMI) Body weight Systolic And Diastolic Provider Name and Address Organization Details Last Updated DateTime 09/16/2019 167.64 cm 31.3 kg/m2 20533.92 g 122/72 mm[Hg] John Torres [facility] 09/16/2019 14:30:41 Date Recorded Body height Body mass index (BMI) Body weight Systolic And Diastolic Provider Name and Address Organization Details Last Updated DateTime 12/23/2018 167.64 cm 30.8 kg/m2 44806.14 g 100/68 mm[Hg] Megan Duarte [facility] 12/23/2018 16:08:50 Date Recorded Body weight Heart rate Oxygen saturation Oxygen saturation in Arterial blood by Pulse oximetry Systolic And Diastolic Provider Name and Address Organization Details Last Updated DateTime 4 72523.4 g 94 /min 97 % 97 % 118/80 mm[Hg] [facility] 4 13:05:24 Date Recorded Body weight Heart rate Oxygen saturation Oxygen saturation in Arterial blood by Pulse oximetry Systolic And Diastolic Provider Name and Address Organization Details Last Updated DateTime 4 41305.1 7 g 89 /min 98 % 98 % 122/80 mm[Hg] Demi [facility] 4 08:10:25 Social History Question Answer Notes LastModified by Organizat ion Details LastModified Time Tobacco Smoking Status Former Smoker 20+ YEARS AGO Suman alves [facility] 09/25/2016 15:35:45 Marital Status [email or web address] Information not available 09/25/2016 What Was The Date Of Your Most Recent Tobacco Screening? 09/02/2024 [email or web address] Information not available 09/02/2024 How Much Tobacco Do You Smoke? No [email or web address] Information not available 04/02/2017 Sex: Unknown Functional Status Question Answer Note LastModified by Organization D etails LastModified Time What is your level of alcohol consumption? None [email or web address] Information not available 09/25/2016 What is your occupation? [employer] [email or web address] Information not available 09/25/2016 Mental Status None recorded. Family History Relationship Description Onset Age of this Age Resolved Age Notes LastModified by Organization Details LastModified Time Mother Hypertensive disorder [email or web address] Not available 2016 15:35:25 Medical History Condition Response Emphysema N COPD N Arthritis Y Acid Reflux (GERD) Y Rheumatoid Arthritis Y Headaches Y Bleeding Disorder N Asthma N Diabetes N Reflux/GERD Y Heart Disease N Hypertension N Gynecological HistoryNo gynecological history recorded. Obstetrics History GPAL:G 0 P 0 0 0 0 Immunizations Vaccine Type Date Status Note Provider Nam e and Address Organization Details Recorded Time Influenza, split virus, quadrivalent, preservative 7 completed Kaleigh Stewart [facility] 09/30/2017 15:23:05 influenza, unspecified formulation 8 completed Anat Ocasio [facility] 06/25/2018 15:42:59 Influenza, split virus, quadrivalent, preservative 6 completed Jacqueline Ashton [facility] 09/27/2016 10:45:38 Past Encounters Encounter ID Performer Location Encounter Start Date Encounter Closed Date Diagnosis/Indication Diagnosis SNOMED-CT Code Diagnosis ICD10 Code Diagnosis IMO Codes Diagnosis Note [id number] ELIZABETH HENDRIX MD [facility] [address] [place] [address] 09/27/2016 10:17:44 09/27/2016 11:31:26 Migraine with aura 5906777 G43.109 Polymyalgi a rheumatica 06043276 M35.3 Long-term drug therapy 223255199 Z79.026 [id number] ELIZABETH HENDRIX MD [facility] [address] [place] [address] 04/02/2017 15:13:47 04/03/2017 07:59:39 Migraine with aura 6874802 G43.109 Rheumatoid arthritis 698 17363 M06.9 [id number] ELIZABETH HENDRIX MD [facility] [place] [facility] [address] [place] [address] 2 09/30/2017 15:19:22 09/30/2017 16:20:03 Migraine without aura 31371606 G43.729 [id number] ELIZABETH HENDRIX MD [facility] [place] [facility] [address] [place] [address] 2 04/08/2018 15:31:27 04/08/2018 16:56:50 Essential hypertension 29510509 I10 Migraine with aura 62356 06 G43.109 Migraine without aura 56 162788 G43.286 [id number] ELIZABETH HENDRIX MD [facility] [place] [address] [place] [address] 2 04/15/2018 08:09:35 04/15/2018 08:59:44 Migraine without aura 89214843 G43.231 [id number] ELIZABETH HENDRIX MD [facility] [place] [facility] [address] [place] [address] 2 06/25/2018 15:41:54 06/25/2018 17:03:34 Migraine with aura 3405372 G43.109 Long-term drug therapy 109549296 Z79.899 Rheumatoid arthritis 698 39945 M06.9 [id number] ELIZABETH HENDRIX MD [facility] [place] [facility] [address] [place] [address] 2 12/23/2018 15:53:32 12/23/2018 16:29:29 Migraine with aura 7842504 G43.109 Migraine without aura 56 696557 G43.825 [id number] ELIZABETH HENDRIX MD NEUROLOGY [facility] [address] [place] [address] 09/16/2019 13:59:15 09/16/2019 15:21:03 Migraine with aura 0583735 G43.109 Migraine without aura 56 741787 G43.009 Nausea 538686536 R11.0 [id number] HUDSON FREED MD [facility] [address] [place] [address] 03/18/2024 12:43:04 03/19/2024 04:08:48 Seropositive rheumatoid arthritis [id number] M05.9 + RF 254.8, - CCP, - direct PEDRO, - SSA/SSB Previously did well on hydroxychl oroquine 200 mg BID when following with [facility] - continue hydroxychl oroquine 200 mg BID- wean prednisone to 5 mg daily for 1 week then off- additional labs as below Stomatitis [id number] K12. 1 Currently improved - continue acyclovir per PCP- will check additional labs as below Malaise and fatigue [id number] R53.81 Bilateral plantar fasciitis [id number] M72.2 Keratoconj unctivitis sicca [id number] M35.01 - For sicca symptoms, I recommende d conservati ve measures including frequent lubricatio n, avoiding stimulants , and regular dental and ophthalmic exams. Long-term drug therapy [id number] Z79.899 - labs every 6 months on current medicaton- yearly eye exams - We discussed the possible side effects of hydroxychl oroquine including headache, nausea, diarrhea, rare retinal pigmentati on, very rare neuromuscu lar toxicity. I recommende d eye exams every 6-12 months to monitor for retinal toxicity [id number] HUDSON FREED MD R[facility]OL [facility] [address] [place] [address] 04/14/2024 08:04:17 04/15/2024 04:53:44 Seropositive rheumatoid arthritis [id number] M05.9 + RF 254.8, - CCP, - [...] till down to 5 mg daily Stomatitis [id number] K12. 1 Currently improved - continue acyclovir per PCP- will check additional labs as below Malaise and fatigue 2717 [id number] R53.81 Bilateral plantar fasciitis [id number] M72.2 Keratoconj unctivitis sicca [id number] M35.01 - For sicca symptoms, I recommende d conservati ve measures including frequent lubricatio n, avoiding stimulants , and regular dental and ophthalmic exams. Long-term drug therapy [id number] Z79.899 - labs again in a month on the leflunomid then every 3 months thereafter - yearly eye exams - We discussed the possible side effects of hydroxychl oroquine including headache, nausea, diarrhea, rare retinal pigmentati on, very rare neuromuscu lar toxicity. I recommende d eye exams every 6-12 months to monitor for retinal toxicity [id number] HUDSON FREED MD [facility]OL [facility] [address] [place] [address] 09/02/2024 07:41:37 09/03/2024 06:44:35 Seropositive rheumatoid arthritis [id number] M05.9 + RF 254.8, - CCP, - direct PEDRO, - SSA/SSB Previously did well on hydroxychl oroquine 200 mg BID when following with [facility], but now developing sores in her mouth and lip swelling. I did not appreciate any synovitis while on no immunosupp ression. - stop hydroxychl oroquine- hold leflunomid e 20 mg daily Stomatitis [id number] K12. 1 Currently improved - continue acyclovir per PCP- will check additional labs as below Malaise and fatigue 2717 60005 R53.81 Bilateral plantar fasciitis [id number] M72.2 Keratoconj unctivitis sicca [id number] M35.01 - For sicca symptoms, I recommende d conservati ve measures including frequent lubricatio n, avoiding stimulants , and regular dental and ophthalmic exams.- magic mouthwash- consider pilocarpin e Health Concerns Section Related Observation LastModified by Organization Detai ls LastModified Time None Recorded Concern Status LastModified by Organization Details LastModified Time None Recorded Advance Directives Directive None Recorded Payers Insurance Date Sequence Insurance Name Policy Number Policy [place] Covered Member ID [place] Member ID Guarantor Name 06/22/2020 2 [facility] [id number] Tulio Acosta [id number] Audrey Acosta 02/25/2024 1 [place] [id number] Satish Acosta [id number] Audrey Acosta 05/24/2025 1 [facility] [id number] Audrey Acosta [id number] Audrey Acosta Notes Date Note Type Note [...] way to keep medications. ELIZABETH HENDRIX MD [facility] [place], [address], [facility] 12/23/2018 20:10:31 0 text/html Return Visit [...] change in medical health ELIZABETH HENDRIX MD [facility] [place], [address], [facility] 09/24/2019 22:38:08 4 text/html ROS as noted in the HPI Ms. Acosta is a 58-year-old woman with past medical history of seropositive rheumatoid arthritis (+ RF, - CCP) and migraines who presents for further evaluation. She says she has previously been following with [facility], but her nurse practitioner is no longer there so she started having more symptoms and she was referred to [facility]. She says her symptoms started about 10 [...] about a month ago. HUDSON FREED MD [address] [place] [address], [phone], [facility] 03/18/2024 13:41:12 4 text/html ROS as noted in the HPI Ms. Acosta is a 58-year-old woman with past medical history of seropositive rheumatoid arthritis (+ RF, - CCP) and migraines who presents for further evaluation. She says she has previously been following with [facility], but her nurse practitioner is no longer there so she started having more symptoms and she was referred to [facility]. She says her symptoms started about 10 [...] to take oral acyclovir. HUDSON FREED MD [address] [place] [address], [phone], [facility] 04/14/2024 08:41:40 5 text/html ROS as noted in the HPI Ms. Acosta is a 59-year-old woman with past medical history of seropositive rheumatoid arthritis vs. primary Sjogren's (+ RF, - CCP, - SSA/SSB) and migraines who presents for further evaluation. She says she has previously been following with [facility], but her nurse practitioner is no longer there so she started having more symptoms and she was referred to [facility]. She says her symptoms started about 10 [...] take oral acyclovir. HUDSON FREED MD [address] [place], [address], [facility] 09/02/2024 09:25:52 OBGyn Episode No OBEpisode recorded.
== END ==
LOC: SL 06:44
PROVIDERS: PCP Nurse Practitioner Family; Visit Provider Nurse Practitioner Family
DX: G47.33 Obstructive sleep apnea (adult) (pediatric) (principal); G47.00 Insomnia, unspecified; I10 Essential (primary) hypertension; E11.9 Type 2 diabetes mellitus without complications
CPT/HCPCS: 95806

== ENCOUNTER 2025-06-07 07:33 | Outpatient (CLI) | payer OTHER, SELFPAY ==
--- OUTSIDE RECORDS SUMMARY | 2017-12-25 09:00 | XMS_ITS | Encounter Summary ---
Author Organization [facility] Address [address] [place] [address] Care Team Providers Care Pv Design Engineer Name Role Phone Angel Hare MD Primary Care Provider [phone] Reason for Referral * Diagnostic Imaging (Routine) - Closed Specialty Diagnoses / Procedures Referred By Contac t Referred To Contact Radiology Diagnoses RLQ abdominal pain Procedures [place] [address] [place] [address] Phone: tel: fax: [address] [address] Phone: tel: fax: Referral ID Status Reason Start Date Expiration Date Visits Re quested Visits Authorized [id number] Closed 12/04/2017 12/04/2018 1 1 Reason for Visit * Diagnostic Imaging (Routine) - Closed Specialty Diagnoses / Procedures Referred By Contac t Referred To Contact Radiology Diagnoses RLQ abdominal pain Procedures US Non-ob Transvaginal Justice Foreman MD [address] [place] [address] Phone: tel: fax: [address] [address] Phone: tel: fax: Referral ID Status Reason Start Date Expiration Date Visits Re quested Visits Authorized [id number] Closed 12/04/2017 12/04/2018 1 1 Encounter Details Date Type Department Care Team (Latest Contact Info) Description 12/25/2017 10:00 AM EDT Hospital Encounter 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 ago [...] pelvic ultrasound Recommendation Follow-up as clinically indicated. Carbonizer: Chen Mcnamara RDMS Physician: Justice Foreman MD Electronically signed by: Justice Foreman MD at: 17:16 Procedure Note Justice Foreman MD - 12/25/2017 PAT NAME: FREDERIC LOPEZ MED REC#: [id number] DA: [id number] PAT GEND: F PAT TYPE: O EXAM INGA: [id number] REF PHYS JUSTICE FOREMAN Indication ======== RLQ pain History ====== Medical History Past surgical history:Previous surgeries performed Surgery:D&C, Tubal THREAD GRINDER TOOL History Other:LMP: > 5 yrs. ago Previous Outcomes Gravida2 Para2 Method ====== [place] E6, Transvaginal ultrasound examination, Color Doppler flowperformed, 3D ultrasound examination. View: Adequate view Uterus ====== Uterus:Normal Uterus position:Anteverted Myometrium:Homogeneous Endometrium:Ill-defined borders Cervix details:Normal Uterus long36 mm Uterus ap27 mm Uterus tr40 mm Uterus Vol20.4 cm Cervical .6 mm Uterus other findings:Small, anechoic area in posterior myometriummeasuring 4.4 x 3.9 x 2.2 mm. Right Ovary ========= Rt ovary:Normal Rt ovary D122.8 mm Rt ovary D210.0 mm Rt ovary D313.1 mm Left Ovary ======== Lt ovary:Not visualized Cul de Sac ========= Normal Impression ========= Normal pelvic ultrasound Recommendation Follow-up as clinically indicated. Carbonizer: Chen Mcnamara RDTX Physician: Justice Foreman MD Electronically signed by: Justice Foreman MD at: 17:16 us Justice Foreman MD IMG US ORDERABLES Final Re sult documented in this encounter Visit Diagnoses Diagnosis RLQ abdominal pain Abdominal pain, right lower quadrant documented in this encounter Care Teams Pv Design Engineer Relationship Specialty Start Date End Date Angel Hare MD Counts include 234 beds at the [facility] [place] [facility] [address] [place] [address] PCP - General Adolescent Medicine 12/04/17 documented as of this encounter
--- OUTSIDE RECORDS SUMMARY | 2025-06-07 07:35 | XMS_ITS | Data Portability ---
Author Organization [facility] Alfonsoi c, CKS CUDDY CLOSED Address [address] [place] [address] Care Team Providers Care Internist Name Role Phone TIFFANY PERRIN Primary Care Provider PEEWEE BERMEO Referring Provider Assessment Encounter Date Assessment Date Assessment LastModified by Organization Details LastModified Time 12/23/2018 12/23/2018 Assessment: 1. Migraine, better on Aimovig needs increase to Aimovig 140 mg per month Plan: 1. change to Aimovig 140 mg injection [email or web address] Not available 12/23/2018 20:09:29 09/16/2019 09/16/2019 Assessment: 1. migraine 2. Great responder to Aimovig 3. Follows with Dr. Tremaine Perrin in [place] Plan: 1. Continue Aimovig 2. renew and continue current medications 3. Start ondansetron 4 mg tablet as directed 4. follow-up in 6 months [email or web address] Not available 09/18/2019 13:46:47 Plan of Treatment Reminders Order Date Submit Date Provider Last Modified By Organization Details Last Modified Time Details Appointments RHEUM RECHECK 2024 03:30P M HUDSON FREED MD Not available Not available Not available Lab CBC w/ auto diff 2023 024 [facility], [address] [place] [address], [id number], 04/21/2024 08:24:18 CMP, serum or plasma [address] [facility], [address] [place] [address], [id number], 04/21/2024 08:24:18 ESR (erythro cyte sediment ation rate), blood [address] [facility], [address] [place] [address], [id number], 04/21/2024 08:24:19 C reactive protein, QN, serum or plasma [address] [facility], [address] [place] [address], [id number], 04/21/2024 08:24:19 ccp (cyclic citrulli nated peptide) iga+igg, serum 2023 024 [facility], [address] [place] [address], [id number], 03/20/2024 19:39:01 PEDRO (antinuc lear antibodi es) titer + pattern, ifa, serum [address], [address] [place] [address], [id number], 03/25/2024 08:12:19 PEDRO (antinuc lear antibodi es) panel, serum 2023 024 [facility], [address] [place] [address], [id number], 03/20/2024 17:07:34 C reactive protein, QN, serum or plasma [address] [facility], [address] [place] [address], [id number], 03/18/2024 16:10:48 ESR (erythro cyte sediment ation rate), blood [address] [facility], [address] [place] [address], [id number], 03/18/2024 16:16:54 Referral None recorded . Procedures None recorded . Surgeries None recorded . Imaging XR, chest, 2 view [address] [facility], [address] [facility], [place], [phone], 03/18/2024 15:20:28 Medication Orders Compound Magic Mouthwas h #10 (Dipheny dramine/ Nystatin /Maalox/ Lidocain e 1:1:1:1) 2024 025 [facility], [address] [place] [address] [place], [id number], 09/02/2024 09:01:24 leflunom francisco 20 mg tablet [address] [facility], [address] [place] [address] E [place], [id number], 09/02/2024 08:19:23 predniso ne 5 mg tablet 2023 024 [facility], [address] [place] [address] [place], [id number], 04/14/2024 13:17:56 predniso ne 5 mg tablet 2023 024 [facility], [address] [place] [address] E [place], [id number], 04/14/2024 09:17:04 hydroxyc hloroqui ne 200 mg tablet [address], [address] [place] [address] E [place], [id number], 04/14/2024 08:27:24 ondanset matt HCl 4 mg tablet [address] [facility], [address] [place] [address] [address] [place], [id number], 04/14/2024 08:27:51 tramadol 50 mg tablet [address], [address] [place] [address] [address] [place], [id number], 04/14/2024 08:27:35 sumatrip marin 100 mg tablet [address] [facility], [address] [place] [address] [address] [place], [id number], 04/14/2024 08:27:48 tramadol 50 mg tablet [address], [address] [place] [address] E [place], [id number], 04/14/2024 08:27:35 Aimovig Autoinje ctor 140 mg/mL subcutan eous auto-inj chad [address], [address] [place] [address] E [place]ovany [place], [id number], 04/14/2024 08:27:46 Patient TargetsNo targets recorded. Patient Instructions Encounter Date Encounter Id Patient Instructions Last Modified By Organization Details Last Modified Time 12/23/2018 [id number] migraine aura without a headache: care instructions Not available 12/25/2018 10:26:05 Spent 35 total minutes with the patient today. Greater than 50% of this time was spent counseling/coordi nation of care as documented in my assessment and plan above. [email or web address] Not available 12/23/2018 20:10:21 09/16/2019 [id number] nausea and vomiting: care instructions [email or web address] Not available 09/17/2019 13:11:21 migraine aura without a headache: care instructions [email or web address] Not available 09/17/2019 13:11:21 eating healthy foods: care instructions [email or web address] Not available 09/17/2019 13:11:21 Reason for Referral None Reported. Results Created Date Observation Date Name Description Value Unit Range Abnormal Flag Note LastModifiedBy Organization Detail LastModifiedTime 03/18/20 24 03/18/2024 C REACT AYALA PROTE IN C reactive protein 0.32 mg/dL 0.00-0 .49 normal Not Available [facility] [address] [place], [phone], 03/18/2024 16:10:48 03/18/20 24 03/18/2024 ESR, AUTOM ATED ESR, automated 7 mm 0-29 normal Not Available [facility] [address] [place], [phone], 03/18/2024 16:16:54 03/18/20 24 03/20/2024 PEDRO W/ [...] l purpo ses only. ) Not Available [facility] [address] [place] [address], [id number], 03/20/2024 17:07:34 03/18/2003/20/2024 ANTI- CCP anti-ccp <16 units normal Refer ence Range Negat ayala: <20 Weak Posit ayala: 20-39 Moder ate Posit ayala: 40-59 Stron g Posit ayala: >59 Not Available [facility] [address] [place] [address], [phone], 03/20/2024 19:39:01 05/18/2005/18/2024 COMPL ETE BLOOD COUNT white blood cells 4.3 10*3/ uL 3.8-10 .8 normal Not Available [facility] [address] [place] [address], [phone], 05/18/2024 08:57:15 05/18/2005/18/2024 COMPL ETE BLOOD COUNT red blood cells 4.16 10*6/ uL 3.80-5 .20 normal Not Available [facility] [address] [place] [address], [id number], 05/18/2024 08:57:15 05/18/20 24 05/18/2024 COMPL ETE BLOOD COUNT hemoglobin 13.5 g/dL 12.0-1 6.0 normal Not Available [facility] [address] [place] [address], [phone], 05/18/2024 08:57:15 05/18/2005/18/2024 COMPL ETE BLOOD COUNT hematocrit 38.8 % 35.0-4 7.0 normal Not Available [facility] [address] [place] [address], [id number], 05/18/2024 08:57:15 05/18/2005/18/2024 COMPL ETE BLOOD COUNT MCV 93 fL 80-100 normal Not Available [facility] [address] [place] [address], [id number], 05/18/2024 08:57:15 05/18/20 24 05/18/2024 COMPL ETE BLOOD COUNT MCH 32 pg 26-35 normal Not Available [facility] [address] [place] [address], [phone], 05/18/2024 08:57:15 05/18/20 24 05/18/2024 COMPL ETE BLOOD COUNT MCHC 35 g/dL 32-36 normal Not Available [facility] [address] [place] [address], [phone], 05/18/2024 08:57:15 05/18/2005/18/2024 COMPL ETE BLOOD COUNT RDW 14.2 % 11.0-1 5.0 normal Not Available [facility] [address] [place] [address], [phone], 05/18/2024 08:57:15 05/18/20 24 05/18/2024 COMPL ETE BLOOD COUNT MPV 7.2 fL 6.2-10 .5 normal Not Available [facility] [address] [place] [address], [phone], 05/18/2024 08:57:15 05/18/20 24 05/18/2024 COMPL ETE BLOOD COUNT platelet count 253 10*3/ uL 150-40 0 normal Not Available [facility] [address] [place] [address], [phone], 05/18/2024 08:57:15 05/18/20 24 05/18/2024 COMPL ETE BLOOD COUNT neutrophil,a bsolute 1.5 10*3/ uL 1.6-8. 4 low Not Available [facility] [address] [place] [address], [id number], 05/18/2024 08:57:15 05/18/20 24 05/18/2024 COMPL ETE BLOOD COUNT lymphocyte,a bsolute 2.2 10*3/ uL 0.4-5. 1 normal Not Available [facility] [address] [place] [address], [id number], 05/18/2024 08:57:15 05/18/20 24 05/18/2024 COMPL ETE BLOOD COUNT monocyte,abs olute 0.5 10*3/ uL 0.0-1. 2 normal Not Available [facility] [address] [place] [address], [phone], 05/18/2024 08:57:15 05/18/2005/18/2024 COMPL ETE BLOOD COUNT eosinophil,a bsolute 0.1 10*3/ uL 0.0-0. 8 normal Not Available [facility] [address] [place] [address], [phone], 05/18/2024 08:57:15 05/18/20 24 05/18/2024 COMPL ETE BLOOD COUNT basophil,abs olute 0.0 10*3/ uL 0.0-0. 3 normal Smear revie wed to confi rm cell morph ology . Not Available [facility] [address] [place] [address], [phone], 05/18/2024 08:57:15 05/18/20 24 05/18/2024 COMPL ETE BLOOD COUNT % neutrophils 34.3 % 42.0-7 8.0 low Not Available [facility] [address] [place] [address], [phone], 05/18/2024 08:57:15 05/18/20 24 05/18/2024 COMPL ETE BLOOD COUNT % lymphocytes 52.7 % 11.0-4 7.0 high Not Available [facility] [address] [place] [address], [phone], 05/18/2024 08:57:15 05/18/20 24 05/18/2024 COMPL ETE BLOOD COUNT % monocytes 10.6 % 0.0-11 .0 normal Not Available [facility] [address] [place] [address], [phone], 05/18/2024 08:57:15 05/18/2005/18/2024 COMPL ETE BLOOD COUNT % eosinophils 1.4 % 0.0-7. 0 normal Not Available [facility] [address] [place] [address], [phone], 05/18/2024 08:57:15 05/18/20 24 05/18/2024 COMPL ETE BLOOD COUNT % basophils 1.0 % 0.0-3. 0 normal Not Available [facility] [address] [place] [address], [id number], 05/18/2024 08:57:15 05/18/2005/18/2024 COMPL ETE BLOOD COUNT nucleated red cells 0.1 % 0.0-0. 9 normal Not Available [facility] [address] [place] [address], [phone], 05/18/2024 08:57:15 05/18/2005/18/2024 COMPL ETE BLOOD COUNT nucleated RBCs, absolute 0.00 10*3/ uL not estab. normal Not Available [facility] [address] [place] [address], [phone], 05/18/2024 08:57:15 05/18/2005/18/2024 MORPH OLOGY RBC morphology NORMAL normal Not Available [facility] [address] [place] [address], [phone], 05/18/2024 08:57:17 05/18/2005/18/2024 MORPH OLOGY platelet morphology NORMAL normal Not Available [facility] [address] [place] [address], [phone], 05/18/2024 08:57:17 05/18/2005/18/2024 C REACT AYALA PROTE IN C reactive protein 0.26 mg/dL 0.00-0 .49 normal Not Available [facility] [address] [place] [address], [phone], 05/18/2024 09:01:31 05/18/20 24 05/18/2024 COMP. METAB OLIC PANEL glucose 93 mg/dL 74-100 normal Not Available [facility] [address] [place] [address], [phone], 05/18/2024 09:01:34 05/18/20 24 05/18/2024 COMP. METAB OLIC PANEL blood urea nitrogen 12 mg/dL 6-20 normal Not Available [facility] [address] [place] [address], [phone], 05/18/2024 09:01:34 05/18/20 24 05/18/2024 COMP. METAB OLIC PANEL creatinine 0.64 mg/dL 0.50-0 .95 normal Not Available [facility] [address] [place] [address], [phone], 05/18/2024 09:01:34 05/18/20 24 05/18/2024 COMP. METAB OLIC PANEL BUN/creatini ne ratio 19 (calc ) 10-20 normal Not Available [facility] [address] [place] [address], [phone], 05/18/2024 09:01:34 05/18/20 24 05/18/2024 COMP. METAB OLIC PANEL sodium 139 mmol/ L 136-14 5 normal Not Available [facility] [address] [place] [address], [phone], 05/18/2024 09:01:34 05/18/20 24 05/18/2024 COMP. METAB OLIC PANEL potassium 3.8 mmol/ L 3.4-5. 0 normal Not Available [facility] [address] [place] [address], [phone], 05/18/2024 09:01:34 05/18/20 24 05/18/2024 COMP. METAB OLIC PANEL chloride 102 mmol/ L 98-107 normal Not Available [facility] [address] [place] [address], [phone], 05/18/2024 09:01:34 05/18/20 24 05/18/2024 COMP. METAB OLIC PANEL carbon dioxide 26 mmol/ L 22-31 normal Not Available [facility] [address] [place] [address], [address], 05/18/2024 09:01:34 05/18/20 24 05/18/2024 COMP. METAB OLIC PANEL anion gap 11 (calc ) 7-25 normal Not Available [facility] [address] [place] [address], [address], 05/18/2024 09:01:34 05/18/20 24 05/18/2024 COMP. METAB OLIC PANEL calcium 9.0 mg/dL 8.6-10 .2 normal Not Available [facility] [address] [place] [address], [address], 05/18/2024 09:01:34 05/18/20 24 05/18/2024 COMP. METAB OLIC PANEL total protein 6.8 g/dL 6.4-8. 3 normal Not Available [facility] [address] [place] [address], [address], 05/18/2024 09:01:34 05/18/20 24 05/18/2024 COMP. METAB OLIC PANEL albumin 4.0 g/dL 3.5-5. 2 normal Not Available [facility] [address] [place] [address], [phone], 05/18/2024 09:01:34 05/18/20 24 05/18/2024 COMP. METAB OLIC PANEL globulin 2.8 1.5-4. 5 normal Not Available [facility] [address] [place] [address], [phone], 05/18/2024 09:01:34 05/18/20 24 05/18/2024 COMP. METAB OLIC PANEL albumin/glob ulin ratio 1.4 (calc ) 1.1-2. 5 normal Not Available [facility] [address] [place] [address], [address], 05/18/2024 09:01:34 05/18/20 24 05/18/2024 COMP. METAB OLIC PANEL bilirubin, total 0.3 mg/dL 0.1-1. 2 normal Not Available [facility] [address] [place] [address], [phone], 05/18/2024 09:01:34 05/18/20 24 05/18/2024 COMP. METAB OLIC PANEL alkaline phosphatase 96 U/L 30-121 normal Not Available [facility] [address] [place], [address], 05/18/2024 09:01:34 05/18/20 24 05/18/2024 COMP. METAB OLIC PANEL AST 19 U/L 0-32 normal Not Available [facility] [address] [place] [address], [phone], 05/18/2024 09:01:34 05/18/20 24 05/18/2024 COMP. METAB OLIC PANEL ALT 14 U/L 0-33 normal Not Available [facility] [address] [place], [address], 05/18/2024 09:01:34 05/18/20 24 05/18/2024 COMP. METAB [...] s/DELLAO QI/gf r_cal culat orPed Not Available [facility] [address] [place], [address], 05/18/2024 09:01:34 05/18/20 24 05/18/2024 ESR, AUTOM ATED ESR, automated 4 mm 0-29 normal Not Available [facility] [address] [place] [address], [phone], 05/18/2024 13:31:35 03/18/20 24 03/18/2024 XR, chest , [address] [address] Samara mullins Name: AUDREY mullins : 1964 [...] Cochran MD on 024 3:15 PM [email or web address] [facility] [address] [place] [address], [phone], 03/25/2024 11:25:34 04/10/20 24 01/22/2024 MRI proce dure (PROC ) No observ ation record ed. [email or web address] Not Available 2023 16:18:41 04/10/20 24 11/26/2023 MRI, ankle , w/o contr ast No observ ation record ed. BARCODE Not Available 2023 13:28:19 Result Notes Documentation Provider Name and Address Organization Details Recorded Time Xr, Chest, 2 View : [address] [address] Patient Name: AUDREY ACOSTA Patient : 1965 Patient Ordering Provider: HUDSON FREED EXAM DATE: 03/18/2024 EXAM: XR CHEST PA/LAT CLINICAL INFORMATION: Physical exam IMAGES PROVIDED: PA and lateral views of the chest. COMPARISON: None. FINDINGS: Heart size is within normal limits. Lung main are clear. IMPRESSION: No acute cardiopulmonary changes. Interpreted By: Tulio Cochran MD Amira Torres [facility] 03/25/2024 11:25:34 Problems Name Problem SNOMED Code Status Onset Date Resolution Date Notes Provider Name and Address Organization Details Recorded Time Migraine with aura 3476537 Active 2015 From Automated Load;Provi muna: Elizabeth Hendrix;Stat us: Active Not Available [facility] 6 08:40:00 Problem Notes None recorded. Procedures Surgical History Date Name Laterality Status Provider Name and Address Organization Details Recorded Time Tubal Ligation completed [facility] 09/25/2016 15:36:30 Imaging Results None recorded. Procedure Notes None recorded. Medical Equipment None Reported. Allergies Allergen ID Allergen Name Allergen Category Reaction Reaction Severity Criticality Documentation Date Start Date Code Code System Note Provider Name and Address Organization Details Recorded Time 273590 ciproflox acin medicatio n Not available Not available Not available 09/27/2016 2551 RxNorm Jacqueline Ashton [facility] 7 10:44:55 Medications Name Sig Start Date Stop Date Status Note LastModified by Organization Details LastModified Time Prescript ion - Prior Authoriza tion Request 04/02 completed Not Available Not Available Not Available Compound Magic Mouthwash #10 (Diphenyd ramine/Ny statin/Ma alox/Lido erickson 1:1:1:1) Swish and spit 10 mL three times daily as needed 2024 active Not Available Not Available Not Avai lable amoxicill in 500 mg capsule TAKE ONE [...] taking Not Available Not Available Not Available lisinopri l 20 mg tablet TAKE 1/2 TABLET BY MOUTH TWICE DAILY active Not Available Not Available No t Available ondansetr on HCl 4 mg tablet Take 1 tablet every 8 hours by oral route for 30 days. 04/14 completed Not Available Not Available Not Available prednison e 20 mg tablet TAKE ONE TABLET BY MOUTH TWICE DAILY ---TAKE WITH FOOD OR MILK--- -- FINISH ALL MEDICINE -- active Not Available Not Available No t Available prednison e 5 mg tablet TAKE [...] ONE TABLET BY MOUTH EVERY DAY active Not Available Not Available No t Available phentermi ne 37.5 mg tablet TAKE ONE TABLET BY MOUTH EVERY DAY BEFORE BREAKFAS T active Not Available Not Available No t Available acyclovir 400 mg tablet TAKE ONE TABLET BY MOUTH THREE TIMES DAILY -- FINISH ALL MEDICINE -- active Not Available Not Available No t Available sulfameth oxazole 800 mg-trimet hoprim 160 mg tablet TAKE 1 TABLET BY MOUTH EVERY 12 HOURS FOR FACIAL CELLULIT IS FOR 10 DAYS 06/04 completed Not Available Not Available Not Available leflunomi de 20 mg tablet TAKE ONE TABLET BY MOUTH EVERY DAY active no longer taking Not Available Not Available Not Available tramadol 50 mg tablet TAKE ONE TABLET BY MOUTH EVERY 6 HOURS NEEDED FOR ACUTE PAIN MAY CAUSE DROWSINE SS 04/14 completed no longer taking Not Available Not Available Not Available prednisol one acetate 1 % eye drops,aristeo pension INSTILL ONE DROP IN THE RIGHT EYE FOUR TIMES DAILY FOR 1 WEEK active Not Available Not Available No t Available amitripty line 10 mg tablet Bedtime [...] tablet Not Available Not Available Not Available baclofen 10 mg tablet TAKE ONE TABLET BY MOUTH TWICE DAILY NEEDED FOR muscle SPASM active Not Available Not Available No t Available benzonata te 100 mg capsule TAKE ONE CAPSULE BY MOUTH THREE TIMES DAILY NEEDED FOR COUGH -SWALLOW WHOLE. DO NOT CRUSH OR CHEW- 04/14 completed no longer taking Not Available Not Available Not Available erythromy samuel 5 mg/gram (0.5 %) eye ointment APPLY SMALL AMOUNT INTO THE LOWER EYELID OF AFFECTED EYE TWICE DAILY active Not Available Not Available No t Available lisinopri l 10 mg tablet TAKE ONE TABLET BY MOUTH EVERY DAY active Not Available Not Available No t Available lidocaine HCl 2 % mucosal solution SWISH AND EXPECTOR ATE 5 ML BY MOUTH FOUR TIMES DAILY (BEFORE MEALS AND AT BEDTIME) FOR 7 DAYS 04/14 completed Not Available Not Available Not Available diclofena c sodium 75 mg tablet,de layed release TAKE ONE TABLET BY MOUTH TWICE DAILY active Not Available Not Available No t Available lisinopri l 5 mg tablet Bedtime 04/14 completed no longer taking Not Available Not Available Not Available diclofena c sodium 50 mg tablet,de layed release TAKE ONE TABLET BY MOUTH EVERY TWELVE HOURS --TAKE WITH FOOD-- 04/14 completed no longer taking Not Available Not Available Not Available metoprolo l succinate ER 25 mg tablet,ex tended release 24 hr TAKE ONE TABLET BY MOUTH EVERY DAY active Not Available Not Available No t Available ergocalci ferol (vitamin D2) 1,250 mcg [...] WITH FOOD-- -- FINISH ALL MEDICINE -- active Not Available Not Available No t Available Plaquenil 04/14 completed 100MG TWICE DAILYno longer taking Not Available Not Available Not Available diclofena c 1 % topical gel apply 4 grams topicall y TO THE knee FOUR TIMES DAILY -- FOR EXTERNAL USE ONLY-- active Not Available Not Available No t Available Duexis 800 mg-26.6 mg tablet 04/02 [...] mg disintegr ating tablet DISSOLVE ONE TABLET ON THE TONGUE EVERY DAY NEEDED FOR migraine active Not Available Not Available No t Available Vitals Date Recorded Body weight Heart rate Oxygen saturation Oxygen saturation in Arterial blood by Pulse oximetry Systolic And Diastolic Provider Name and Address Organization Details Last Updated DateTime 5 90002.4 g 86 /min 96 % 96 % 110/80 mm[Hg] Demi Covarrubias [facility] 5 08:21:33 Date Recorded Body height Body mass index (BMI) Body weight Systolic And Diastolic Provider Name and Address Organization Details Last Updated DateTime 09/16/2019 167.64 cm 31.3 kg/m2 54820.92 g 122/72 mm[Hg] John Torres [facility] 09/16/2019 14:30:41 Date Recorded Body height Body mass index (BMI) Body weight Systolic And Diastolic Provider Name and Address Organization Details Last Updated DateTime 12/23/2018 167.64 cm 30.8 kg/m2 86817.14 g 100/68 mm[Hg] Megan Duarte [facility] 12/23/2018 16:08:50 Date Recorded Body weight Heart rate Oxygen saturation Oxygen saturation in Arterial blood by Pulse oximetry Systolic And Diastolic Provider Name and Address Organization Details Last Updated DateTime 4 06362.4 g 94 /min 97 % 97 % 118/80 mm[Hg] [facility] 4 13:05:24 Date Recorded Body weight Heart rate Oxygen saturation Oxygen saturation in Arterial blood by Pulse oximetry Systolic And Diastolic Provider Name and Address Organization Details Last Updated DateTime 4 93996.1 7 g 89 /min 98 % 98 % 122/80 mm[Hg] [facility] 4 08:10:25 Social History Question Answer Notes LastModified by Organizat ion Details LastModified Time Tobacco Smoking Status Former Smoker 20+ YEARS AGO Suman Guadarrama [facility] 09/25/2016 15:35:45 Marital Status [email or web address] Information not available 09/25/2016 What Was The Date Of Your Most Recent Tobacco Screening? 09/02/2024 [email or web address] Information not available 09/02/2024 How Much Tobacco Do You Smoke? No [email or web address] Information not available 04/02/2017 Sex: Unknown Functional Status Question Answer Note LastModified by Organization D etails LastModified Time What is your level of alcohol consumption? 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 Family History Relationship Description Onset Age of this Age Resolved Age Notes LastModified by Organization Details LastModified Time Mother Hypertensive disorder [email or web address] Not available 2016 15:35:25 Medical History Condition Response Emphysema N COPD N Arthritis Y Acid Reflux (GERD) Y Rheumatoid Arthritis Y Headaches Y Diabetes N Bleeding Disorder N Asthma N Reflux/GERD Y Heart Disease N Hypertension N Gynecological HistoryNo gynecological history recorded. Obstetrics History GPAL:G 0 P 0 0 0 0 Immunizations Vaccine Type Date Status Note Provider Nam e and Address Organization Details Recorded Time Influenza, split virus, quadrivalent, preservative 7 completed Kaleigh Stewart [facility] 09/30/2017 15:23:05 influenza, unspecified formulation 8 completed Anat Ocasio [facility] 06/25/2018 15:42:59 Influenza, split virus, quadrivalent, preservative 6 completed Jacqueline Ashton [facility] 09/27/2016 10:45:38 Past Encounters Encounter ID Performer Location Encounter Start Date Encounter Closed Date Diagnosis/Indication Diagnosis SNOMED-CT Code Diagnosis ICD10 Code Diagnosis IMO Codes Diagnosis Note [id number] ELIZABETH HENDRIX MD [facility]UROLOGY [place] [facility] [address] [place] [address] 09/27/2016 10:17:44 09/27/2016 11:31:26 Migraine with aura 9319178 G43.109 Polymyalgi a rheumatica 12695988 M35.3 Long-term drug therapy 833239592 Z79.927 [id number] ELIZABETH HENDRIX MD NEUROLOGY [place] CLOS[facility] [address] [address] 04/02/2017 15:13:47 04/03/2017 07:59:39 Migraine with aura 9421460 G43.109 Rheumatoid arthritis 698 95132 M06.9 [id number] ELIZABETH HENDRIX MD NEUROLOGY [place] [facility] [address] [address] 09/30/2017 15:19:22 09/30/2017 16:20:03 Migraine without aura 33596158 G43.997 [id number] ELIZABETH HENDRIX MD NEUROLOGY [place] [facility] [address],[place] [address] 04/08/2018 15:31:27 04/08/2018 16:56:50 Essential hypertension 85768194 I10 Migraine with aura 39741 06 G43.109 Migraine without aura 56 776362 G43.654 [id number] ELIZABETH HENDRIX MD [facility]UROLOGY [place] [facility] [address] [address] 04/15/2018 08:09:35 04/15/2018 08:59:44 Migraine without aura 61371999 G43.525 [id number] ELIZABETH HENDRIX MD [facility]UROLOGY [place] [facility] [address] [address] 06/25/2018 15:41:54 06/25/2018 17:03:34 Migraine with aura 1228938 G43.109 Long-term drug therapy 377047025 Z79.899 Rheumatoid arthritis 698 97979 M06.9 [id number] ELIZABETH HENDRIX MD NEUROLOGY [place] [facility] [address] [place] [address] 12/23/2018 15:53:32 12/23/2018 16:29:29 Migraine with aura 2749806 G43.109 Migraine without aura 56 680562 G43.936 [id number] ELIZABETH HENDRIX MD NEUROLOGY [place] CLOSED [address] [place] [id number] 09/16/2019 13:59:15 09/16/2019 15:21:03 Migraine with aura 4262574 G43.109 Migraine without aura 56 437468 G43.009 Nausea 769301094 R11.0 [id number] HUDSON FREED MD RHEUMATOL [facility] [address] [place] [id number] 03/18/2024 12:43:04 03/19/2024 04:08:48 Seropositive rheumatoid arthritis 705290255 M05.9 + RF 254.8, - CCP, - direct PEDRO, - SSA/SSB Previously did well on hydroxychl oroquine 200 mg BID when following with [facility] - continue hydroxychl oroquine 200 mg BID- wean prednisone to 5 mg daily for 1 week then off- additional labs as below Stomatitis 74836140 K12. 1 Currently improved - continue acyclovir per PCP- will check additional labs as below Malaise and fatigue 2717 70790 R53.81 Bilateral plantar fasciitis [id number] 7865099 M72.2 Keratoconj unctivitis sicca 582459836 M35.01 - For sicca symptoms, I recommende d conservati ve measures including frequent lubricatio n, avoiding stimulants , and regular dental and ophthalmic exams. Long-term drug therapy 697015115 Z79.899 - labs every 6 months on current medicaton- yearly eye exams - We discussed the possible side effects of hydroxychl oroquine including headache, nausea, diarrhea, rare retinal pigmentati on, very rare neuromuscu lar toxicity. I recommende d eye exams every 6-12 months to monitor for retinal toxicity [id number] HUDSON FREED MD RHEUMATOL OGY [address] [place] [address] 04/14/2024 08:04:17 04/15/2024 04:53:44 Seropositive rheumatoid arthritis 425814131 M05.9 + RF 254.8, - CCP, - [...] till down to 5 mg daily Stomatitis 87229723 K12. 1 Currently improved - continue acyclovir per PCP- will check additional labs as below Malaise and fatigue 2717 76397 R53.81 Bilateral plantar fasciitis 8382301886 0796055 M72.2 Keratoconj unctivitis sicca 928992724 M35.01 - For sicca symptoms, I recommende d conservati ve measures including frequent lubricatio n, avoiding stimulants , and regular dental and ophthalmic exams. Long-term drug therapy 771519486 Z79.899 - labs again in a month on the leflunomid then every 3 months thereafter - yearly eye exams - We discussed the possible side effects of hydroxychl oroquine including headache, nausea, diarrhea, rare retinal pigmentati on, very rare neuromuscu lar toxicity. I recommende d eye exams every 6-12 months to monitor for retinal toxicity [id number] HUDSON FREED MD RHEUMATOL [facility] [address] [place] [address] 09/02/2024 07:41:37 09/03/2024 06:44:35 Seropositive rheumatoid arthritis 493570775 M05.9 + RF 254.8, - CCP, - direct PEDRO, - SSA/SSB Previously did well on hydroxychl oroquine 200 mg BID when following with [facility], but now developing sores in her mouth and lip swelling. I did not appreciate any synovitis while on no immunosupp ression. - stop hydroxychl oroquine- hold leflunomid e 20 mg daily Stomatitis 07583334 K12. 1 Currently improved - continue acyclovir per PCP- will check additional labs as below Malaise and fatigue 6186 92429 R53.81 Bilateral plantar fasciitis 9054082127 5851257 M72.2 Keratoconj unctivitis sicca 813410171 M35.01 - For sicca symptoms, I recommende [...] [place] Member ID Guarantor Name 06/22/2020 2 UMR [id number] Tulio Angel Dave [id number] Audrey Hensley Dave 02/25/2024 1 [place] [id number] Satish Spearsfabiola Acosta [id number] Audrey Hensley Dave 06/04/2025 1 UMR [id number] Audrey Issa Acosta [id number] Audrey Ayden Acosta Notes Date Note Type Note Provider [...] way to keep medications. ELIZABETH HENDRIX MD [facility] [place], [address], [facility] 12/23/2018 20:10:31 0 text/html Return Visit 54 [...] change in medical health ELIZABETH HENDRIX MD [address] [place], [address], [facility] 09/24/2019 22:38:08 4 text/html ROS as noted in the HPI Ms. Acosta is a 58-year-old woman with past medical history of seropositive rheumatoid arthritis (+ RF, - CCP) and migraines who presents for further evaluation. She says she has previously been following with rheumatology, but her nurse practitioner is no longer there so she started having more symptoms and she was referred to [facility]. She says her symptoms started about 10 [...] about a month ago. HUDSON FREED MD [address] [place] [address], [address], [facility] 03/18/2024 13:41:12 4 text/html ROS as noted in the HPI Ms. Acosta is a 58-year-old woman with past medical history of seropositive rheumatoid arthritis (+ RF, - CCP) and migraines who presents for further evaluation. She says she has previously been following with rheumatology, but her nurse practitioner is no longer there so she started having more symptoms and she was referred to [facility]. She says her symptoms started about 10 [...] to take oral acyclovir. HUDSON FREED MD [facility] [place], [address], [facility] 04/14/2024 08:41:40 5 text/html ROS as noted in the HPI Ms. Acosta is a 59-year-old woman with past medical history of seropositive rheumatoid arthritis vs. primary Sjogren's (+ RF, - CCP, - SSA/SSB) and migraines who presents for further evaluation. She says she has previously been following with rheumatology, but her nurse practitioner is no longer there so she started having more symptoms and she was referred to [facility]. She says her symptoms started about 10 [...] take oral acyclovir. HUDSON FREED MD [address] [place], [address], [place] [facility] 09/02/2024 09:25:52 OBGyn Episode No OBEpisode recorded.
--- OUTSIDE RECORDS SUMMARY | 2025-06-07 07:35 | XMS_ITS | Encounter Summary ---
Author Organization [facility] Address [address] [place] [address] Care Team Providers Care Credit Control Officer Name Role Phone Angel Hare MD Primary Care Provider [phone] Encounter Details Date Type Department Care Team (Late st Contact Info) Description 11/16/2024 Results Follow-Up [facility] PATIENT ACCESS [address] [place] [phone] Tuan Petty MD [address] [facility] [address] [place] [address] Social History Tobacco Use Types Packs/Day Years [...] on filedocumented in this encounter Care Teams Credit Control Officer Relationship Specialty Start Date End Date Angel Hare MD [address] [place] [address] PCP - General Adolescent Medicine 12/04/17 documented as of this encounter
--- OUTSIDE RECORDS SUMMARY | 2025-06-07 07:35 | XMS_ITS | Clinical Summary ---
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
[address] [place] [address], * SCANNED - COLONOSCOPY (01/31/2018) us Tuan Petty MD CHART REVIEW TABS Final Result from Last 3 Months or Most Recently Relevant to Health Maintenance Insurance R Care Teams Correspondence Section Supervisor Relationship Specialty Start Date End Date Angel Hare MD [address] [place] [facility] [address] [place] [address] PCP - General Adolescent Medicine 12/04/17
--- OUTSIDE RECORDS SUMMARY | 2025-06-07 07:35 | XMS_ITS | Clinical Summary ---
Author Organization [facility] Address [address] 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
== END 2025-06-07 23:59 | disposition home or self-care (01) ==
LOC: LAB 07:34
PROVIDERS: PCP Nurse Practitioner Family; Visit Provider Nurse Practitioner Family
DX: R00.0 Tachycardia, unspecified (principal)
CPT/HCPCS: 36415; 82533

== ENCOUNTER 2025-06-09 06:51 | Outpatient (CLI) | payer OTHER, SELFPAY ==
--- OUTSIDE RECORDS SUMMARY | 2017-12-25 09:00 | XMS_ITS | Encounter Summary ---
Author Organization [facility] Address [address] [place] [address] Care Team Providers Care Healthcare Educator Name Role Phone Angel Hare MD Primary Care Provider [phone] Reason for Referral * Diagnostic Imaging (Routine) - Closed Specialty Diagnoses / Procedures Referred By Contac t Referred To Contact Radiology Diagnoses RLQ abdominal pain Procedures [place] [address] [place] [address] Phone: tel: fax: [address] [address] Phone: tel: fax: Referral ID Status Reason Start Date Expiration Date Visits Re quested Visits Authorized [id number] Closed 12/04/2017 12/04/2018 1 1 Reason for Visit * Diagnostic Imaging (Routine) - Closed Specialty Diagnoses / Procedures Referred By Contac t Referred To Contact Radiology Diagnoses RLQ abdominal pain Procedures US Non-ob Transvaginal Justice Foreman MD [address] [place] [address] Phone: tel: fax: [address] [address] Phone: tel: fax: Referral ID Status Reason Start Date Expiration Date Visits Re quested Visits Authorized [id number] Closed 12/04/2017 12/04/2018 1 1 Encounter Details Date Type Department Care Team (Latest Contact Info) Description 12/25/2017 10:00 AM EDT Hospital Encounter [facility] [address] [facility] [address] [place] [id number] RLQ abdominal pain Social History Tobacco Use [...] EDT PAT NAME: FREDERIC LOPEZ MED REC#: [id number] DA: [id number] PAT GEND: F PAT TYPE: O EXAM INGA: [id number] 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 ago [...] pelvic ultrasound Recommendation Follow-up as clinically indicated. 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 ago Previous [...] pelvic ultrasound Recommendation Follow-up as clinically indicated. Marshmallow Runner: Chen Mcnamara RDAL Physician: Justice Foreman MD Electronically signed by: Justice Foreman MD at: 17:16 us Justice Foreman MD IMG US ORDERABLES Final Re sult documented in this encounter Visit Diagnoses Diagnosis RLQ abdominal pain Abdominal pain, right lower quadrant documented in this encounter Care Teams Healthcare Educator Relationship Specialty Start Date End Date Angel Hare MD [facility] [address] [place] [address] PCP - General Adolescent Medicine 12/04/17 documented as of this encounter
--- OUTSIDE RECORDS SUMMARY | 2025-06-09 06:53 | XMS_ITS | Clinical Summary ---
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
[address] [place] [address], * SCANNED - COLONOSCOPY (01/31/2018) us Tuan Petty MD CHART REVIEW TABS Final Result from Last 3 Months or Most Recently Relevant to Health Maintenance Insurance R Care Teams Residential Subcontractor Relationship Specialty Start Date End Date Angel Hare MD [address] [place] [facility] [address] [place] [address] PCP - General Adolescent Medicine 12/04/17
--- OUTSIDE RECORDS SUMMARY | 2025-06-09 06:53 | XMS_ITS | Encounter Summary ---
Author Organization [facility] Address [address] [place] [address] Care Team Providers Care Esl Professor Name Role Phone Angel Hare MD Primary Care Provider [phone] Encounter Details Date Type Department Care Team (Late st Contact Info) Description 11/16/2024 Results Follow-Up [facility] PATIENT ACCESS [address] [place] [place] [phone] Tuan Petty MD [address] [facility] [address] [place] [address] Social History Tobacco Use Types Packs/Day Years [...] on filedocumented in this encounter Care Teams Esl Professor Relationship Specialty Start Date End Date Angel Hare MD [address] [place] [address] PCP - General Adolescent Medicine 12/04/17 documented as of this encounter
--- OUTSIDE RECORDS SUMMARY | 2025-06-09 06:54 | XMS_ITS | Continuity of Care Document ---
Author Organization [facility] Address [address] [place] [address] Care Team Providers Care Payroll Representative Name Role Phone TIFFANY PERRIN Primary Care Provider PEEWEE BERMEO Referring Provider [phone] Assessment Encounter Date Assessment Date Assessment LastModified by Organization Details LastModified Time 06/07/2025 06/07/2025 - 59-year-old female with a history of seropositive rheumatoid arthritis vs. Sjogren's presenting with generalized aching and fatigue, particularly in the evenings. - She reports generally feeling poorly. Previous immunosuppression has not helped her. No synovitis to suggest active rheumatoid arthritis or inflammation. Lab work and extensive imaging has been negative. - She is demonstrating widespread pain in joints and muscle, fatigue, without synovitis and interfering with sleep which fits with a neuropathic pain syndrome such as fibromyalgia. - Hypertension episode was noted with a blood pressure of 218/138 mmHg, requiring emergency care. I am unsure if this is related to her underlying issue or part of essential hypertension. - Osteoarthritis is stable, but the patient reports intermittent joint pain and stiffness. [email or web address] Not available 06/08/2025 06:34:44 Plan of Treatment Reminders Order Date Submit Date Provider Last Modified By Organization Details Last Modified Time Details Appointments RHEUM RECHECK 2024 11:00A M HUDSON FREED MD Not available Not available Not available Lab CBC w/ auto diff 2024 11 025 [facility], [address] [place] [address], [place], [id number], 06/07/2025 20:10:17 CMP, serum or plasma 2024 [facility], [address] [place] [address], [id number], 06/07/2025 21:43:21 ESR (erythro cyte sediment ation rate), blood 2024 [facility], [address] [place] [address], [id number], 06/07/2025 20:55:34 C reactive protein, QN, serum or plasma 2024 [facility], [address] [place] [address], [id number], 06/07/2025 21:43:24 vitamin D, 25-hydro xy, total, serum [address] [place] [address], [address] [place] [address], [id number], 06/07/2025 16:03:18 CK (creatin e kinase), total, serum 2024 025 [facility], [address] [place] [address], [id number], 06/07/2025 21:43:22 vitamin B12, serum 2024 025 [facility], [address] [place] [address], [id number], 06/07/2025 16:03:18 folate, serum [address] [place] [address], [address] [place] [address], [id number], 06/07/2025 16:03:14 TSH, serum, reflex free T4 2024 025 [facility], [address] [place] [address], [id number], 06/07/2025 22:09:49 C3 (complem ent), serum or plasma 2024 [facility], [address] [place] [address], [id number], 06/07/2025 16:03:15 C4 (complem ent), serum or plasma 2024 [facility], [address] [place] [address], [id number], 06/07/2025 16:03:17 dsDNA Ab, serum 2024 [facility], [address] [place] [address], [id number], 06/07/2025 16:03:17 Referral None recorded . Procedures None recorded . Surgeries None recorded . Imaging None recorded . Medication Orders hydroxyc hloroqui ne [address] [facility], [address] [place] [address] [address] [place], [id number], 06/08/2025 10:51:46 Compound Magic Mouthwas h #10 (Dipheny dramine/ Nystatin /Maalox/ Lidocain e 1:1:1:1) 2024 [facility], [address] [place] [address] [address] [place], [id number], 06/07/2025 16:08:32 cycloben zaprine 5 mg tablet 2024 [facility], [address] [place] [address] [address] [place], [id number], 06/08/2025 10:51:48 Patient TargetsNo targets recorded. Patient Instructions Encounter Date Encounter Id Patient Instructions Last Modified By Organization Details Last Modified Time 06/07/2025 [id number] - trial cyclobenzaprine at night before bed - restart hydroxychloroquine 200 mg BID - Consider starting duloxetine for fibromyalgia symptoms and monitor response. - Further laboratory monitoring today [email or web address] Not available 06/08/2025 06:38:14 Reason for Referral None Reported. Problems Name Problem SNOMED Code Status Onset Date Resolution Date Notes Provider Name and Address Organization Details Recorded Time Migraine with aura 5353628 Active 2015 From Automated Load;Provi muna: Nate Hendrix;Stat us: Active Not Available [facility]ly [facility] 6 08:40:00 Problem Notes None recorded. Procedures Surgical History Date Name Laterality Status Provider Name and Address Organization Details Recorded Time [facility] 15:36:30 Imaging Results None recorded. Procedure Notes None recorded. Medical Equipment None Reported. Allergies Allergen ID Allergen Name Allergen Category Reaction Reaction Severity Criticality Documentation Date Start Date Code Code System Note Provider Name and Address Organization Details Recorded Time 118732 ciproflox acin medicatio n Not available Not available Not available 09/27/2016 2551 RxNorm SCOTT Londono [facility] 7 10:44:55 Medications Name Sig Start [...] Not Available Not Available No t Available metoprolo l succinate ER 50 mg tablet,ex tended release 24 hr Take 1 tablet every day by oral route. active Not Available Not Available No t [...] t Available hydroxych loroquine 200 mg tablet Take 1 tablet twice a day by oral route. 2024 active Not Available Not Available Not Avai lable ibuprofen 600 mg tablet TAKE ONE TABLET BY MOUTH TWICE DAILY --TAKE WITH FOOD-- active Not Available Not Available No t Available methylpre dnisolone 4 mg tablets in a dose pack TAKE ACCORDIN G TO PACKAGE INSTRUCT IONS --TAKE WITH FOOD-- -- FINISH ALL MEDICINE -- active Not Available Not Available No t Available cyclobenz aprine 5 mg tablet Take 1 tablet every day by oral route. 2024 active Not Available Not Available Not Avai lable Plaquenil 04/14 completed 100MG TWICE DAILYno longer [...] taking Not Available Not Available Not Available Nurte ODT 75 mg disintegr ating tablet DISSOLVE ONE TABLET ON THE TONGUE EVERY DAY NEEDED FOR migraine active Not Available Not Available No t Available Vitals Date Recorded Body weight Body mass index (BMI) Body height Respiratory rate Heart rate Oxygen saturation Oxygen saturation in Arterial blood by Pulse oximetry Systolic And Diastolic Provider Name and Address Organization Details Last Updated DateTime 5 86089.3 6 g 34.7 kg/m2 167.64 cm 14 /min 85 /min 98 % 98 % 128/76 mm[Hg] [facility] 5 15:35:46 Social History Question Answer Notes LastModified by Organizat ion Details LastModified Time Tobacco Smoking Status Former Smoker 20+ YEARS AGO Suman Guadarrama [facility] 09/25/2016 15:35:45 Marital Status Information not available 09/25/2016 What Was The Date Of Your Most Recent Tobacco Screening? 06/07/2025 [email or web address] Information not available 06/07/2025 How Much Tobacco Do You Smoke? No [email or web address] Information not available 04/02/2017 Sex: Unknown Functional Status Question Answer Note LastModified by Organization D etails LastModified Time What is your level of alcohol consumption? 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 Family History Relationship Description Onset Age of this Age Resolved Age Notes LastModified by Organization Details LastModified Time Mother Hypertensive disorder [email or web address] Not available 2016 15:35:25 Medical History Condition Response Diabetes N Bleeding Disorder N Arthritis Y Reflux/GERD Y Emphysema N Heart Disease N Acid Reflux (GERD) Y Rheumatoid Arthritis Y Headaches Y Hypertension N Asthma N COPD N Gynecological HistoryNo gynecological history recorded. Obstetrics History GPAL:G 0 P 0 0 0 0 Immunizations Vaccine Type Date Status Note Provider Nam e and Address Organization Details Recorded Time Influenza, split virus, quadrivalent, preservative 7 completed Kaleigh Stewart [facility] 09/30/2017 15:23:05 Tdap 1 completed Not Available [facility] 06/07/2025 14:58:23 Influenza, split virus, quadrivalent, PF 3 completed Not Available [facility] 06/07/2025 14:58:23 MMR 4 completed Not Available [facility] 06/07/2025 14:58:23 Influenza, split virus, quadrivalent, PF 5 completed Not Available [facility] 06/07/2025 14:58:23 influenza, unspecified formulation 8 completed Anat Ocasio [facility] 06/25/2018 15:42:59 Influenza, split virus, quadrivalent, preservative 6 completed Jacqueline Ashton [facility] 09/27/2016 10:45:38 Past Encounters Encounter ID Performer Location Encounter Start Date Encounter Closed Date Diagnosis/Indication Diagnosis SNOMED-CT Code Diagnosis ICD10 Code Diagnosis IMO Codes Diagnosis Note [id number] HUDSON FREED MD [facility] [address] [place] [address] 06/07/2025 14:54:34 06/09/2025 04:57:05 Keratoconjunctivitis sicca 437180991 M35.01 - For sicca symptoms, I recommende d conservati ve measures including frequent lubricatio n, avoiding stimulants , and regular dental and ophthalmic exams.- magic mouthwash- consider pilocarpin e- will get additional labs as below- will restart hydroxychl oroquine 200 mg BID Seropositi ve rheumatoid arthritis 928234071 M05.9 + RF 254.8, - CCP, - direct PEDRO, - SSA/SSB Previously did well on hydroxychl oroquine 200 mg BID when following with [facility], but now developing sores in her mouth and lip swelling.L eflunomide stopped to due lack of efficacy and oral ulceration . I did not appreciate any synovitis while on no immunosupp ression. - restart hydroxychl oroquine 200 mg BID Stomatitis 20866398 K12. 1 Currently improved - continue acyclovir per PCP- will check additional labs as below Malaise and fatigue 2717 64828 R53.81 The symptoms are predominan tly neuropathi c. Her descriptio n of joints are most consistent with neuropathi c symptoms/d ysesthesia s seen in a variety of neuropathi c states including Fibromyalg ia. Neuropathi c medication s form the basis of treatment for these conditions . Narcotics have no role in the treatment of neuropathi c pain. I explained to her that neuropathi c syndromes are generally halfway syndromes that don't go away. - check labs as listed below- I have encouraged regular low impact aerobic exercise up to 30 minutes per day. If this is unattainab le, recommend a graded exercise program starting with 5 minutes of dedicated cardiovasc ular exercise daily, increasing by 1 minute daily until goal of 30 minutes daily is reached.- I have recommende d conservati ve measures to improve sleep- she has recently had a sleep study, but has not heard the results- recommend avoiding narcotics studies have shown that narcotics can worsen fibromyalg ia pain.- Counseled on alternativ e therapies that can help with pain including massage therapy, aquatic therapy, physical therapy, acupunctur e, chiropract ics, and psychology evaluation - consider addition of cymbalta- start cyclobenza juvenal 5 mg QHS Taking hig h risk medication [id number] 53421 Z79.864 [id number] - labs every 6 months- yearly eye exams - We discussed the possible side effects of hydroxychl oroquine including headache, nausea, diarrhea, rare retinal pigmentati on, very rare neuromuscu lar toxicity. I recommende d eye exams every 6-12 months to monitor for retinal toxicity Health Concerns Section Related Observation LastModified by Organization Detai ls LastModified Time None Recorded Concern Status LastModified by Organization Details LastModified Time None Recorded Payers Encounter Date Sequence Insurance Name Policy Number Policy [place] Covered Member ID [place] Member ID Guarantor Name 06/07/2025 1 [facility] [id number] Audrey Acosta [id number] Audrey Acosta Notes Date Note Type Note Provider Name and Address Organization Details Recorded Time 06/07/2025 text/html ROS as noted in the HPI Ms. Acosta is a 59-year-old woman with past medical history of seropositive rheumatoid arthritis vs. primary Sjogren's (+ RF, - CCP, - SSA/SSB) and migraines who presents for further evaluation. I last saw her 09/02/2024 and she had decided to stop all immunosuppression due to oral ulcers. She was previously on plaquenil and leflunomide. She says she is doing poorly. She reports a recent episode of hypertension with a blood pressure reading of 218/138 mmHg, which led to an emergency room visit. Subsequent tests revealed a long QT interval on EKG and a high D-dimer level, although no clot was found. The patient experiences generalized aching and fatigue, with symptoms exacerbating in the evenings. She also reports sun sensitivity and scaly patches around her eyes, which she thinks may be related. Her osteoarthritis is stable, but she experiences intermittent joint pain and stiffness. She says that she constantly feels like she has the flu. She hurts all over and it doens't seem to just be in her joints. She does not notice any red, hot, swollen joints. She is not sleeping well. Her is present with her at the appointment and states that she has good days and bad days and will get better with rest. She says that steroids 5-10 mg will make her feel wonderful.+sicca. She had CT scans of the brain, CTA head, neck, chest, A/P. All were clear. She says she still gets oral ulcers in her mouth despite being off of the medication so now she does not think it was the medication causing this. She had labs done which showed normal uric acid 4.3, CRP mildly elevated 7 (0-4), rheumatoid factor 258.4 (<14), normal CCP antibody, negative direct PEDRO, negative SSA/SSB. Her CCP antibody was negative at our office visit. Documentation on this patient encounter was supported using voice-enabled Al technology. The patient consented to recording for the purpose of documenting the encounter. Provider reviewed content of the generated note prior to signature. HUDSON FREED MD [facility] [place], [address], [facility] 06/08/2025 06:39:40 OBGyn Episode No OBEpisode recorded.
--- OUTSIDE RECORDS SUMMARY | 2025-06-09 06:54 | XMS_ITS | Clinical Summary ---
Author Organization [facility] Address [address] 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
--- OUTSIDE RECORDS SUMMARY | 2025-06-09 06:54 | XMS_ITS ---
Author Organization Unknown ENCOUNTERS Encounter Performer Location Date Diagnosis Diagnosis Status Emergency [facility] [address] [facility] [address] [place] [address] [id number] ALEXIS Pre Admit [facility] [address] [place] [facility] [address] [place] [address] [id number] Emergency [facility] [address] [facility] [address] [place] [address] [id number] ALEXIS Pre Admit [facility] [address] [place] [address] [id number] Emergency [facility] [address] [facility] [address] [place] [address] [id number] ALEXIS Pre Admit [facility] [address] [facility] [address] [place] [address] [id number] Pre Admit [facility] [address] [facility] [address] [place] [address] [id number] Emergency [facility] [address] [place] [address] [id number] ALEXIS Pre Admit [facility] [address] [facility] [address] [place] [address] [id number] Emergency [facility] [address] [facility] [address] [place] [address] [id number] ALEXIS Emergency [facility] [address] [facility] [address] [place] [address] [id number] ALEXIS *Note: Encounters from your own facility or health system may be excluded. Allergies, Adverse Reactions, Alerts Allergen Type Severity Identification Date ciprofloxacin drug allergy 0 [id number] Medications Name Date Quantity Days Supplied GPI Number
[2025-06-09 08:28] LABS: 25-OH Vitamin D, Total 21.1 ng/mL (30-100)
[2025-06-09 09:00] LABS: Vitamin B12 283 pg/mL (239-931)
[2025-06-09 09:18] LABS: Folate 15.00 ng/mL
== END 2025-06-09 23:59 | disposition home or self-care (01) ==
LOC: LAB 06:52
PROVIDERS: PCP Nurse Practitioner Family; Visit Provider Internal Medicine Rheumatology
DX: M35.01 Sjogren syndrome with keratoconjunctivitis (principal)
CPT/HCPCS: 36415; 82306; 82607; 82746; 86160; 86225

== ENCOUNTER 2025-07-03 12:47 | Outpatient (CLI) | payer OTHER, SELFPAY ==
--- OUTSIDE RECORDS SUMMARY | 2017-12-25 09:00 | XMS_ITS | Encounter Summary ---
Author Organization [facility] Address [address] [place] [address] Care Team Providers Care Brown Sourer Name Role Phone Angel Hare MD Primary Care Provider [phone] Reason for Referral * Diagnostic Imaging (Routine) - Closed Specialty Diagnoses / Procedures Referred By Contac t Referred To Contact Radiology Diagnoses RLQ abdominal pain Procedures [place] [address] [place] [address] Phone: tel: fax: [address] [address] Phone: tel: fax: Referral ID Status Reason Start Date Expiration Date Visits Re quested Visits Authorized [id number] Closed 12/04/2017 12/04/2018 1 1 Reason for Visit * Diagnostic Imaging (Routine) - Closed Specialty Diagnoses / Procedures Referred By Contac t Referred To Contact Radiology Diagnoses RLQ abdominal pain Procedures US Non-ob Transvaginal Justice Foreman MD [address] [place] [address] Phone: tel: fax: [address] [address] Phone: tel: fax: Referral ID Status Reason Start Date Expiration Date Visits Re quested Visits Authorized [id number] Closed 12/04/2017 12/04/2018 1 1 Encounter Details Date Type Department Care Team (Latest Contact Info) Description 12/25/2017 10:00 AM EDT Hospital Encounter [facility] [address] [facility] [address] [place] [phone] RLQ abdominal pain Social History Tobacco Use Types Packs/Day Years Used Date Smoking Tobacco: Former Cigarettes 1 1986 Smokeless Tobacco: Never Alcohol Use Standard Drinks/Week Comments No 0 (1 standard drink = 0.6 oz pur e alcohol) Comments No Sex and Gender Information Value Date Recorded Sex Assigned at Not on file Legal Sex Female 10:15 AM EDT Gender Identity Not on file Sexual Orientation Not on file documented as of this encounter Plan of Treatment Not on file documented as of this encounter Procedures Procedure Name Priority Date/Time Associated Diagnosis Comments US NON-OB TRANSVAGINAL Routine 12/25/2017 10:29 AM EDT RLQ abdominal pain documented in this encounter Results * US Non-ob Transvaginal (12/25/2017 10:29 AM EDT) Anatomical Region Laterality Modality Body Ultrasound 12/25/2017 10:2 0 AM EDT Narrative 12/25/2017 5:16 PM EDT PAT NAME: FREDERIC LOPEZ MED REC#: [id number] DA: [id number] PAT GEND: F PAT TYPE: O EXAM INGA: [id number] REF PHYS JUSTICE FOREMAN Indication ======== RLQ pain History ====== Medical History Past surgical history: Previous surgeries performed Surgery: D&C, Tubal CASING BUILDER History Other: LMP: > 5 yrs. ago Previous Outcomes 2 Para 2 Method ====== [place]on E6, Transvaginal ultrasound examination, Color Doppler flow performed, 3D ultrasound examination. View: Adequate view Uterus ====== Uterus: Normal Uterus position: Anteverted Myometrium: Homogeneous Endometrium: Ill-defined borders Cervix details: Normal Uterus long 36 mm Uterus ap 27 mm Uterus tr 40 mm Uterus Vol 20.4 cm Cervical length 27.6 mm Uterus other findings: Small, anechoic area in posterior myometrium measuring 4.4 x 3.9 x 2.2 mm. Right Ovary ========= Rt ovary: Normal Rt ovary D1 22.8 mm Rt ovary D2 10.0 mm Rt ovary D3 13.1 mm Left Ovary ======== Lt ovary: Not visualized Cul de Sac ========= Normal Impression ========= Normal pelvic ultrasound Recommendation Follow-up as clinically indicated. Light Armored Reconnaissance Officer: Chen Mcnamara RDMS Physician: Justice Foreman MD Electronically signed by: Justice Foreman MD at: 17:16 Procedure Note Justice Foreman MD - 12/25/2017 PAT NAME: FREDERIC LOPEZ MED REC#: [id number] DA: [id number] PAT GEND: F PAT TYPE: O EXAM INGA: [id number] REF PHYS JUSTICE FOREMAN Indication ======== RLQ pain History ====== Medical History Past surgical history:Previous surgeries performed Surgery:D&C, Tubal CASING BUILDER History Other:LMP: > 5 yrs. ago Previous Outcomes Gravida2 Para2 Method ====== [place] E6, Transvaginal ultrasound examination, Color Doppler flowperformed, 3D ultrasound examination. View: Adequate view Uterus ====== Uterus:Normal Uterus position:Anteverted Myometrium:Homogeneous Endometrium:Ill-defined borders Cervix details:Normal Uterus long36 mm Uterus ap27 mm Uterus tr40 mm Uterus Vol20.4 cm Cervical stpgpo02.6 mm Uterus other findings:Small, anechoic area in posterior myometriummeasuring 4.4 x 3.9 x 2.2 mm. Right Ovary ========= Rt ovary:Normal Rt ovary D122.8 mm Rt ovary D210.0 mm Rt ovary D313.1 mm Left Ovary ======== Lt ovary:Not visualized Cul de Sac ========= Normal Impression ========= Normal pelvic ultrasound Recommendation Follow-up as clinically indicated. Light Armored Reconnaissance Officer: Chen Mcnamara RDWY Physician: Justice Foreman MD Electronically signed by: Justice Foreman MD at: 17:16 us Justice Foreman MD IMG US ORDERABLES Final Re sult documented in this encounter Visit Diagnoses Diagnosis RLQ abdominal pain Abdominal pain, right lower quadrant documented in this encounter Care Teams Brown Sourer Relationship Specialty Start Date End Date Angel Hare MD [facility] [address] [place] [address] PCP - General Adolescent Medicine 12/04/17 documented as of this encounter
--- NOTE | 2025-07-03 12:47 | XR_ITS ---
PROCEDURE INFORMATION: Exam: XR Right Knee Exam date and time: 07/03/2025 12:43 PM Age: 60 years old Clinical indication: Pain; Knee; Right; Additional info: Right knee pain TECHNIQUE: Imaging protocol: Radiologic exam of the right knee. Views: 3 views. Total images: 4 COMPARISON: MR KNEE RT WO CON 01/22/2024 7:26 AM FINDINGS: Bones/joints: There are mild degenerative changes of the knee joint, predominantly involving the medial joint compartment. No evidence of acute fracture or dislocation. Soft tissues: Soft tissues are within normal limits. IMPRESSION: 1. There are mild degenerative changes of the knee joint, predominantly involving the medial joint compartment. 2. No evidence of acute fracture or dislocation.
--- OUTSIDE RECORDS SUMMARY | 2025-07-03 12:49 | XMS_ITS | Continuity of Care Document ---
Author Organization [facility], [facility] Address [address] [place] [address] Care Team Providers Care Business Continuity Strategy Director Name Role Phone TIFFANY PERRIN Primary Care Provider PEEWEE BERMEO Referring Provider [phone] Assessment Encounter Date Assessment Date Assessment LastModified [...] patient reports intermittent joint pain and stiffness. [email or web address] Not available 06/08/2025 06:34:44 Plan of Treatment Reminders Order Date Submit Date Provider Last Modified By Organization Details Last Modified Time Details Appointments RHEUM RECHECK 2024 11:00A M HUDSON FREED MD Not available Not available Not available Lab CBC w/ auto diff 2024 11 025 [facility], [address] [place] [address], [place], [address], 06/07/2025 20:10:17 CMP, serum or plasma 2024 025 [facility] [place], [address] [place] [address], [address], 06/07/2025 21:43:21 ESR (erythro cyte sediment ation rate), blood 2024 025 [facility] [place], [address] [place] [address], [address], 06/07/2025 20:55:34 C reactive protein, QN, serum or plasma 2024 025 [facility] [place], [address] [place] [address], [address], 06/07/2025 21:43:24 vitamin D, 25-hydro xy, total, serum 2024 025 [facility] [place], [address] [place] [address], [address], 06/09/2025 10:41:41 CK (creatin e kinase), total, serum 2024 025 [facility] [place], [address] [place] [address], [address], 06/07/2025 21:43:22 vitamin B12, serum 2024 025 [facility] [place], [address] [place] [address], [address], 06/29/2025 06:48:50 folate, serum [email or web address], [address] [place] [address], [address], 06/29/2025 09:42:32 TSH, serum, reflex free T4 2024 025 [facility] [place], [address] [place] [address], [address], 06/07/2025 22:09:49 C3 (complem ent), serum or plasma 2024 [facility] [place], [address] [place] [address], [address], 06/10/2025 15:50:02 C4 (complem ent), serum or plasma 2024 025 [facility] [place], [address] [place] [address], [address], 06/10/2025 15:50:03 dsDNA Ab, serum 2024 [email or web address] [facility], [address] [place] [address], [address], 06/29/2025 09:42:32 Referral None recorded . Procedures None recorded . Surgeries None recorded . Imaging None recorded . Medication Orders hydroxyc hloroqui ne 200 mg tablet 2024 025 [facility], [address] [place] [address] [address] [place], [id number], 06/08/2025 10:51:46 Compound Magic Mouthwas h #10 (Dipheny dramine/ Nystatin /Maalox/ Lidocain e 1:1:1:1) 2024 [facility] [employer] [facility], [address] [place] [address] [address] [place], [place], [id number], 06/07/2025 16:08:32 cycloben zaprine 5 mg tablet 2024 [facility] [employer] [facility], [address] [place] [address] [address] [place], [id number], 06/08/2025 10:51:48 Patient TargetsNo targets recorded. Patient Instructions Encounter Date Encounter Id Patient Instructions Last Modified By Organization Details Last Modified Time 06/07/2025 [id number] - trial cyclobenzaprine at night before bed - restart hydroxychloroquine 200 mg BID - Consider starting duloxetine for fibromyalgia symptoms and monitor response. - Further laboratory monitoring today [email or web address] Not available 06/08/2025 06:38:14 Reason for Referral None Reported. Results Created Date Observation Date Name Description Value Unit Range Abnormal Flag Note LastModifiedBy Organization Detail LastModifiedTime 06/07/20 25 06/07/2025 COMPL ETE BLOOD COUNT white blood cells 5.4 10*3/ uL 3.8-10 .8 normal Not Available [facility] [address] [place] [address], [address], 06/07/2025 20:10:17 06/07/20 25 06/07/2025 COMPL ETE BLOOD COUNT red blood cells 4.23 10*6/ uL 3.80-5 .20 normal Not Available [facility] [address] [place] [address], [address], 06/07/2025 20:10:17 06/07/20 25 06/07/2025 COMPL ETE BLOOD COUNT hemoglobin 13.5 g/dL 12.0-1 6.0 normal Not Available [facility] [address] [place] [address], [address], 06/07/2025 20:10:17 06/07/20 25 06/07/2025 COMPL ETE BLOOD COUNT hematocrit 39.8 % 35.0-4 7.0 normal Not Available [facility] [address] [place] [address], [address], 06/07/2025 20:10:17 06/07/20 25 06/07/2025 COMPL ETE BLOOD COUNT MCV 94 fL 80-100 normal Not Available [facility] [address] [place] [address], [address], 06/07/2025 20:10:17 06/07/20 25 06/07/2025 COMPL ETE BLOOD COUNT MCH 32 pg 26-35 normal Not Available [facility] [address] [place] [address], [address], 06/07/2025 20:10:17 06/07/20 25 06/07/2025 COMPL ETE BLOOD COUNT MCHC 34 g/dL 32-36 normal Not Available [facility] [address] [place] [address], [address], 06/07/2025 20:10:17 06/07/20 25 06/07/2025 COMPL ETE BLOOD COUNT RDW 13.8 % 11.0-1 5.0 normal Not Available [facility] [address] [place] [address], [address], 06/07/2025 20:10:17 06/07/20 25 06/07/2025 COMPL ETE BLOOD COUNT MPV 7.9 fL 6.2-10 .5 normal Not Available [facility] [address] [place] [address], [address], 06/07/2025 20:10:17 06/07/20 25 06/07/2025 COMPL ETE BLOOD COUNT platelet count 303 10*3/ uL 150-40 0 normal Not Available [facility] [address] [place] [address], [address], 06/07/2025 20:10:17 06/07/20 25 06/07/2025 COMPL ETE BLOOD COUNT neutrophil,a bsolute 3.3 10*3/ uL 1.6-8. 4 normal Not Available [facility] [address] [place] [address], [address], 06/07/2025 20:10:17 06/07/20 25 06/07/2025 COMPL ETE BLOOD COUNT lymphocyte,a bsolute 1.7 10*3/ uL 0.4-5. 1 normal Not Available [facility] [address] [place] [address], [address], 06/07/2025 20:10:17 06/07/20 25 06/07/2025 COMPL ETE BLOOD COUNT monocyte,abs olute 0.4 10*3/ uL 0.0-1. 2 normal Not Available [facility] [address] [place] [address], [address], 06/07/2025 20:10:17 06/07/20 25 06/07/2025 COMPL ETE BLOOD COUNT eosinophil,a bsolute 0.1 10*3/ uL 0.0-0. 8 normal Not Available [facility] [address] [place] [address], [address], 06/07/2025 20:10:17 06/07/20 25 06/07/2025 COMPL ETE BLOOD COUNT basophil,abs olute 0.0 10*3/ uL 0.0-0. 3 normal Not Available [facility] [address] [place] [address], [address], 06/07/2025 20:10:17 06/07/20 25 06/07/2025 COMPL ETE BLOOD COUNT % neutrophils 60.3 % 42.0-7 8.0 normal Not Available [facility] [address] [place] [address], [address], 06/07/2025 20:10:17 06/07/20 25 06/07/2025 COMPL ETE BLOOD COUNT % lymphocytes 30.7 % 11.0-4 7.0 normal Not Available [facility] [address] [place] [address], [address], 06/07/2025 20:10:17 06/07/20 25 06/07/2025 COMPL ETE BLOOD COUNT % monocytes 6.9 % 0.0-11 .0 normal Not Available [facility] [address] [place] [address], [address], 06/07/2025 20:10:17 06/07/20 25 06/07/2025 COMPL ETE BLOOD COUNT % eosinophils 1.7 % 0.0-7. 0 normal Not Available [facility] [address] [place] [address], [address], 06/07/2025 20:10:17 06/07/20 25 06/07/2025 COMPL ETE BLOOD COUNT % basophils 0.4 % 0.0-3. 0 normal Not Available [facility] [address] [place] [address], [address], 06/07/2025 20:10:17 06/07/20 25 06/07/2025 COMPL ETE BLOOD COUNT nucleated red cells 0.0 % 0.0-0. 9 normal Not Available [facility] [address] [place] [address], [address], 06/07/2025 20:10:17 06/07/20 25 06/07/2025 COMPL ETE BLOOD COUNT nucleated RBCs, absolute 0.00 10*3/ uL not estab. normal Not Available [facility] [address] [place] [address], [address], 06/07/2025 20:10:17 06/07/20 25 06/07/2025 ESR, AUTOM ATED ESR, automated 12 mm 0-29 normal Not Available [facility] [address] [place] [address], [address], 06/07/2025 20:55:34 06/07/20 25 06/07/2025 COMP. METAB OLIC PANEL glucose 124 mg/dL 74-100 high Not Available [facility] [address] [place] [address], [address], 06/07/2025 21:43:21 06/07/20 25 06/07/2025 COMP. METAB OLIC PANEL blood urea nitrogen 8 mg/dL 6-20 normal Not Available [facility] [address] [place] [address], [address], 06/07/2025 21:43:21 06/07/20 25 06/07/2025 COMP. METAB OLIC PANEL creatinine 0.88 mg/dL 0.50-0 .95 normal Not Available [facility] [address] [place] [address], [address], 06/07/2025 21:43:21 06/07/20 25 06/07/2025 COMP. METAB OLIC PANEL BUN/creatini ne ratio 9 (calc ) 10-20 low Not Available [facility] [address] [place] [address], [address], 06/07/2025 21:43:21 06/07/20 25 06/07/2025 COMP. METAB OLIC PANEL sodium 143 mmol/ L 136-14 5 normal Not Available [facility] [address] [place] [address], [address], 06/07/2025 21:43:21 06/07/20 25 06/07/2025 COMP. METAB OLIC PANEL potassium 3.9 mmol/ L 3.4-5. 0 normal Not Available [facility] [address] [place] [address], [address], 06/07/2025 21:43:21 06/07/20 25 06/07/2025 COMP. METAB OLIC PANEL chloride 104 mmol/ L 98-107 normal Not Available [facility] [address] [place] [address], [address], 06/07/2025 21:43:21 06/07/20 25 06/07/2025 COMP. METAB OLIC PANEL carbon dioxide 25 mmol/ L 22-31 normal Not Available [facility] [address] [place] [address], [address], 06/07/2025 21:43:21 06/07/20 25 06/07/2025 COMP. METAB OLIC PANEL anion gap 14 (calc ) 7-25 normal Not Available [facility] [address] [place] [address], [address], 06/07/2025 21:43:21 06/07/20 25 06/07/2025 COMP. METAB OLIC PANEL calcium 9.3 mg/dL 8.6-10 .2 normal Not Available [facility] [address] [place] [address], [address], 06/07/2025 21:43:21 06/07/20 25 06/07/2025 COMP. METAB OLIC PANEL total protein 7.1 g/dL 6.4-8. 3 normal Not Available [facility] [address] [place] [address], [address], 06/07/2025 21:43:21 06/07/20 25 06/07/2025 COMP. METAB OLIC PANEL albumin 4.2 g/dL 3.5-5. 2 normal Not Available [facility] [address] [place] [address], [address], 06/07/2025 21:43:21 06/07/20 25 06/07/2025 COMP. METAB OLIC PANEL globulin 2.9 1.5-4. 5 normal Not Available [facility] [address] [place] [address], [address], 06/07/2025 21:43:21 06/07/20 25 06/07/2025 COMP. METAB OLIC PANEL albumin/glob ulin ratio 1.4 (calc ) 1.1-2. 5 normal Not Available [facility] [address] [place] [address], [address], 06/07/2025 21:43:21 06/07/20 25 06/07/2025 COMP. METAB OLIC PANEL bilirubin, total 0.5 mg/dL 0.1-1. 0 normal NOTE: New refer ence range . Not Available [facility] [address] [place] [address], [address], 06/07/2025 21:43:21 06/07/20 25 06/07/2025 COMP. METAB OLIC PANEL alkaline phosphatase 95 U/L 30-121 normal Not Available [facility] [address] [place] [address], [address], 06/07/2025 21:43:21 06/07/20 25 06/07/2025 COMP. METAB OLIC PANEL AST 26 U/L 0-32 normal Not Available [facility] [address] [place], [address], 06/07/2025 21:43:21 06/07/20 25 06/07/2025 COMP. METAB OLIC PANEL ALT 19 U/L 0-33 normal Not Available [facility] [address] [place] [address], [address], 06/07/2025 21:43:21 06/07/20 25 06/07/2025 COMP. METAB OLIC PANEL eGFR 75 >= 60 normal NOT E New calcu latio n for GFR (CKD- EPI 2020) is formu lated witho ut race adjus tment facto rs at the recom menda tion of the Leon Andrew y Goran kelsey and Stephane Champagne ty of Nephr ology . This calcu latio n has not been valid ated in pregn ant women . For pedia tric patie nts refer to https ://azeem verma.shannan rg/pr manav calhoun s/KDO QI/gf r_cal culat orPed Not Available [facility] [address] [place] [address], [address], 06/07/2025 21:43:21 06/07/20 25 06/07/2025 CREAT INE KINAS E creatine kinase 156 U/L 0-169 normal Not Available [facility] [address] [place] [address], [address], 06/07/2025 21:43:22 06/07/20 25 06/07/2025 C REACT AYALA PROTE IN C reactive protein 0.51 mg/dL 0.00-0 .49 high Not Available [facility] [address] [place] [address], [address], 06/07/2025 21:43:24 06/07/20 25 06/07/2025 TSH WITH REFLE X FT4 TSH with reflex FT4 1.210 u[IU] /mL 0.270- 4.200 normal Not Available [facility] [address] [place] [address], [address], 06/07/2025 22:09:49 Result Notes None recorded. Problems Name Problem SNOMED Code Status Onset Date Resolution Date Notes Provider Name and Address Organization Details Recorded Time Migraine with aura 8598744 Active 2015 From Automated Load;Provi muna: Nate Hendrix;Stat us: Active Not Available [facility] 6 08:40:00 Problem Notes None recorded. Procedures Surgical History Date Name Laterality Status Provider Name and Address Organization Details Recorded Time [facility] Imaging Results None recorded. Procedure Notes None recorded. Medical Equipment None Reported. Allergies Allergen ID Allergen Name Allergen Category Reaction Reaction Severity Criticality Documentation Date Start Date Code Code System Note Provider Name and Address Organization Details Recorded Time 895659 ciproflox acin medicatio n Not available Not available Not available 09/27/2016 2551 RxNorm Jacqueline Ashton [facility] 7 10:44:55 Medications Name Sig Start [...] 50 mg tablet,ex tended release 24 hr TAKE [...] Not Available Not Available No t Available ibuprofen 600 mg tablet TAKE ONE TABLET BY MOUTH TWICE DAILY --TAKE WITH FOOD-- active Not Available Not Available No t Available methylpre dnisolone 4 mg tablets in a dose pack TAKE ACCORDIN G TO PACKAGE INSTRUCT IONS --TAKE WITH FOOD-- -- FINISH ALL MEDICINE -- active Not Available Not Available No t Available cyclobenz aprine 5 mg tablet TAKE ONE TABLET BY MOUTH [...] ON THE TONGUE EVERY DAY NEEDED FOR MIGRAINE active Not Available Not Available No t Available Vitals Date Recorded Body weight Body mass index (BMI) Body height Respiratory rate Heart rate Oxygen saturation Systolic And Diastolic Provider Name and Address Organization Details Last Updated DateTime 5 36407.3 6 g 34.7 kg/m2 167.64 cm 14 /min 85 /min 98 % 128/76 mm[Hg] [facility] 5 15:35:46 Social History Question Answer Notes LastModified by Organizat ion Details LastModified Time Tobacco Smoking Status Former Smoker 20+ YEARS AGO Suman Guadarrama [facility] 09/25/2016 15:35:45 Marital Status [email or web address] Information not available 09/25/2016 What Was The Date Of Your Most Recent Tobacco Screening? 06/07/2025 [email or web address] Information not available 06/07/2025 How Much Tobacco Do You Smoke? No [email or web address] Information not available 04/02/2017 Sex: Unknown Functional Status Question Answer Note LastModified by Organization D etails LastModified Time What is your level of alcohol consumption? None [email or web address] Information not available 09/25/2016 What is your occupation? [employer] [email or web address] Information not available 09/25/2016 Mental Status None recorded. Family History Relationship Description Onset Age of this Age Resolved Age Notes LastModified by Organization Details LastModified Time Mother Hypertensive disorder [email or web address] Not available 2016 15:35:25 Medical History Condition [...] virus, quadrivalent, preservative 7 completed Kaleigh Stewart [facility] 09/30/2017 15:23:05 Tdap 1 completed Not Available [facility] 06/07/2025 14:58:23 Influenza, split virus, quadrivalent, PF 3 completed Not Available [facility] 06/07/2025 14:58:23 MMR 4 completed Not Available [facility] 06/07/2025 14:58:23 Influenza, split virus, quadrivalent, PF 5 completed Not Available [facility] 06/07/2025 14:58:23 influenza, unspecified formulation 8 completed Anat Ocasio [facility] 06/25/2018 15:42:59 Influenza, split virus, quadrivalent, preservative 6 completed Jacqueline Ashton [facility] 09/27/2016 10:45:38 Past Encounters Encounter ID Performer Location Encounter Start Date Encounter Closed Date Diagnosis/Indication Diagnosis SNOMED-CT Code Diagnosis ICD10 Code Diagnosis IMO Codes Diagnosis Note [id number] HUDSON FREED MD [facility] [address] [place] [address] 06/07/2025 14:54:34 06/09/2025 04:57:05 Keratoconjunctivitis sicca 165169776 M35.01 - For sicca symptoms, I recommende d conservati ve measures including frequent lubricatio n, avoiding stimulants , and regular dental and ophthalmic exams.- magic mouthwash- consider pilocarpin e- will get additional labs as below- will restart hydroxychl oroquine 200 mg BID Seropositi ve rheumatoid arthritis 791627490 M05.9 + RF 254.8, - CCP, - [...] restart hydroxychl oroquine 200 mg BID Stomatitis 03388112 K12. 1 Currently improved - continue acyclovir per PCP- will check additional labs as below Malaise and fatigue 2717 86469 R53.81 The symptoms are predominan tly neuropathi [...] her that neuropathi c syndromes are generally buttermaker helper syndromes that don't go away. - check [...] mg QHS Taking hig h risk medication [id number] 75926 Z79.581 1685659 - labs every 6 months- yearly eye [...] [place]ague Member ID Guarantor Name 06/07/2025 1 [facility] [id number] Audrey Acosta [id number] Audreykevin Acosta Notes Date Note Type Note Provider [...] note prior to signature. HUDSON FREED MD [address] [place] [address], [address], [facility] 06/08/2025 06:39:40 OBGyn Episode No OBEpisode recorded.
--- OUTSIDE RECORDS SUMMARY | 2025-07-03 12:49 | XMS_ITS | Encounter Summary ---
Author Organization [facility] Address [address] [place] [address] Care Team Providers Care Teletype Installer Name Role Phone Angel Hare MD Primary Care Provider [phone] Encounter Details Date Type Department Care Team (Late st Contact Info) Description 11/16/2024 Results Follow-Up [facility] PATIENT ACCESS [address] [id number] Tuan Petty MD [address] [facility] [address] [place] [address] Social History Tobacco Use Types Packs/Day Years [...] on filedocumented in this encounter Care Teams Teletype Installer Relationship Specialty Start Date End Date Angel Hare MD [address] [place] [address] PCP - General Adolescent Medicine 12/04/17 documented as of this encounter
--- OUTSIDE RECORDS SUMMARY | 2025-07-03 12:49 | XMS_ITS | Clinical Summary ---
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
[address] [place] [address], * SCANNED - COLONOSCOPY (01/31/2018) us Tuan Petty MD CHART REVIEW TABS Final Result from Last 3 Months or Most Recently Relevant to Health Maintenance Insurance R Care Teams Stone Rougher Relationship Specialty Start Date End Date Angel Hare MD [address] [facility] [address] [place] [address] PCP - General Adolescent Medicine 12/04/17
--- OUTSIDE RECORDS SUMMARY | 2025-07-03 12:50 | XMS_ITS | Data Portability ---
Author Organization SCOTT Connie Hamiltoni jerry, [facility] [place] [facility] Address [address] [facility] [address] [place] [address] Care Team Providers Care Branner Machine Tender Name Role Phone MARYCHUY TIFFANY Primary Care Provider PEEWEE BERMEO Referring Provider Assessment Encounter Date Assessment Date Assessment LastModified by Organization Details LastModified Time 09/16/2019 09/16/2019 Assessment: 1. migraine 2. Great responder to Aimovig 3. Follows with Dr. Tremaine Hare in [place] Plan: 1. Continue Aimovig 2. renew and continue current medications 3. Start ondansetron 4 mg tablet as directed 4. follow-up in 6 months [email or web address] Not available 09/18/2019 13:46:47 06/07/2025 06/07/2025 - 59-year-old female with a [...] patient reports intermittent joint pain and stiffness. [email or web address] Not available 06/08/2025 06:34:44 Plan of Treatment Reminders Order Date Submit Date Provider Last Modified By Organization Details Last Modified Time Details Appointments RHEUM RECHECK 2024 11:00A M HUDSON FREED MD Not available Not available Not available Lab CBC w/ auto diff 2024 [facility], [address] [place] [address], [id number], 06/07/2025 20:10:17 CMP, serum or plasma 2024 [facility], [address] [place] [address], [id number], 06/07/2025 21:43:21 ESR (erythro cyte sediment ation rate), blood 2024 [facility], [address] [place] [address], [id number], 06/07/2025 20:55:34 C reactive protein, QN, serum or plasma 2024 [facility], [address] [place] [address], [id number], 06/07/2025 21:43:24 vitamin D, 25-hydro xy, total, serum 2024 [facility], [address] [place] [address], [id number], 06/09/2025 10:41:41 CK (creatin e kinase), total, serum 2024 [facility], [address] [place] [address], [id number], 06/07/2025 21:43:22 vitamin B12, serum 2024 [facility], [address] [place] [address], [id number], 06/29/2025 06:48:50 folate, serum [address] [facility], [address] [place] [address], [id number], 06/29/2025 09:42:32 TSH, serum, reflex free T4 2024 025 [facility], [address] [place] [address], [id number], 06/07/2025 22:09:49 C3 (complem ent), serum or plasma 2024 025 [facility], [address] [place] [address], [id number], 06/10/2025 15:50:02 C4 (complem ent), serum or plasma 2024 025 [facility], [address] [place] [address], [id number], 06/10/2025 15:50:03 dsDNA Ab, serum [address] [facility], [address] [place] [address], [id number], 06/29/2025 09:42:32 CBC w/ auto diff [address] [facility], [address] [place] [address], [id number], 04/21/2024 08:24:18 CMP, serum or plasma [address] [facility], [address] [place] [address], [id number], 04/21/2024 08:24:18 ESR (erythro cyte sediment ation rate), blood [address] [facility], [address] [place] [address], [id number], 04/21/2024 08:24:19 C reactive protein, QN, serum or plasma [address] [facility], [address] [place] [address], [id number], 04/21/2024 08:24:19 ccp (cyclic citrulli nated peptide) iga+igg, serum 2023 024 [facility], [address] [place] [address], [id number], 03/20/2024 19:39:01 PEDRO (antinuc lear antibodi es) titer + pattern, ifa, serum [address] [facility], [address] [place] [address], [id number], 03/25/2024 08:12:19 PEDRO (antinuc lear antibodi es) panel, serum 2023 024 [facility], [address] [place] [address], [id number], 03/20/2024 17:07:34 C reactive protein, QN, serum or plasma 2023 024 [facility], [address] [place] [address], [id number], 03/18/2024 16:10:48 ESR (erythro cyte sediment ation rate), blood 2023 024 [facility], [address] [place] [address], [id number], 03/18/2024 16:16:54 Referral None recorded . Procedures None recorded . Surgeries None recorded . Imaging XR, chest, 2 view 2023 024 [facility], [address] [place] [address], [id number], 03/18/2024 15:20:28 Medication Orders hydroxyc hloroqui ne 200 mg tablet 2024 025 [facility], [address] [place] [address] [place], [id number], 06/08/2025 10:51:46 Compound Magic Mouthwas h #10 (Dipheny dramine/ Nystatin /Maalox/ Lidocain e 1:1:1:1) 2024 025 [facility], [address] [place] [address] [address] [place], [id number], 06/07/2025 16:08:32 cycloben zaprine 5 mg tablet 2024 025 [facility], [address] [place] [address] [address] [place], [id number], 06/08/2025 10:51:48 Compound Magic Mouthwas h #10 (Dipheny dramine/ Nystatin /Maalox/ Lidocain e 1:1:1:1) 2024 025 [facility], [address] [place] [address] [address] [place], [id number], 09/02/2024 09:01:24 leflunom francisco 20 mg tablet [address], [address] [place] [address] [address] [place], [id number], 09/02/2024 08:19:23 predniso ne 5 mg tablet 2023 024 [facility], [address] [place] [address] [address] [place], [id number], 04/14/2024 13:17:56 predniso ne 5 mg tablet 2023 024 [facility], [address] [place] [address] [address] [place], [id number], 04/14/2024 09:17:04 hydroxyc hloroqui ne 200 mg tablet [address], [address] [place] [address] [address] [place], [id number], 04/14/2024 08:27:24 ondanset matt HCl 4 mg tablet [address], [address] [place] [address] [address] G-Hiro, SCOTT Arment[place], [id number], 04/14/2024 08:27:51 tramadol 50 mg tablet [address], [address] [place] [address] [address] [place], [id number], 04/14/2024 08:27:35 sumatrip marin 100 mg tablet [address], [address] [place] [address] [address] [place], [id number], 04/14/2024 08:27:48 Patient TargetsNo targets recorded. Patient Instructions Encounter Date Encounter Id Patient Instructions Last Modified By Organization Details Last Modified Time 09/16/2019 [id number] nausea and vomit ing: care instructions [email or web address] Not available 09/17/2019 13:11:21 migraine aura wi thout a headache: care instructions [email or web address] Not available 09/17/2019 13:11:21 eating healthy f oods: care instructions Not available 09/17/2019 13:11:21 06/07/2025 [id number] - trial cyclobenzaprine at night before bed - restart hydroxychloroquine 200 mg BID - Consider starting duloxetine for fibromyalgia symptoms and monitor response. - Further laboratory monitoring today [place] [id number] Not available 06/08/2025 06:38:14 Reason for Referral None Reported. Results Created Date Observation Date Name Description Value Unit Range Abnormal Flag Note LastModifiedBy Organization Detail LastModifiedTime 03/18/2003/18/2024 C REACT AYALA PROTE IN C reactive protein 0.32 mg/dL 0.00-0 .49 normal Not Available [facility] [address] [place] [address], [id number], 03/18/2024 16:10:48 03/18/20 24 03/18/2024 ESR, AUTOM ATED ESR, automated 7 mm 0-29 normal Not Available [facility] [address] [place], [address], 03/18/2024 16:16:54 03/18/20 24 03/20/2024 PEDRO W/ [...] Patte rns (http s://d [email or web address] [email or web address]. 1515/ [facility]- 2017- 0052) For addit ional infor radha pena e refer to http: //gerry browne.Que stDia gnost ics.c om/fa q/FAQ 177 (This link is being provi ded for infor inga nal/ educa matthew l purpo ses only. ) Not Available [facility] [address] [place] [address], [id number], 03/20/2024 17:07:34 03/18/20 03/20/2024 ANTI- CCP anti-ccp <16 units normal Refer ence Range Negat ayala: <20 Weak Posit ayala: 20-39 Moder ate Posit ayala: 40-59 Stron g Posit ayala: >59 Not Available [facility] [address] [place] [address], [id number], 03/20/2024 19:39:01 05/18/2005/18/2024 COMPL ETE BLOOD COUNT white blood cells 4.3 10*3/ uL 3.8-10 .8 normal Not Available [facility] [address] [place] [address], [id number], 05/18/2024 08:57:15 05/18/2005/18/2024 COMPL ETE BLOOD COUNT red blood cells 4.16 10*6/ uL 3.80-5 .20 normal Not Available [facility] [address] [place] [address], [id number], 05/18/2024 08:57:15 05/18/2005/18/2024 COMPL ETE BLOOD COUNT hemoglobin 13.5 g/dL 12.0-1 6.0 normal Not Available [facility] [address] [place] [address], [id number], 05/18/2024 08:57:15 05/18/20 24 05/18/2024 COMPL ETE BLOOD COUNT hematocrit 38.8 % 35.0-4 7.0 normal Not Available [facility] [address] [place] [address], [address], 05/18/2024 08:57:15 05/18/2005/18/2024 COMPL ETE BLOOD COUNT MCV 93 fL 80-100 normal Not Available [facility] [address] [place] [address], [address], 05/18/2024 08:57:15 05/18/20 24 05/18/2024 COMPL ETE BLOOD COUNT MCH 32 pg 26-35 normal Not Available [facility] [address] [place] [address], [id number], 05/18/2024 08:57:15 05/18/20 24 05/18/2024 COMPL ETE BLOOD COUNT MCHC 35 g/dL 32-36 normal Not Available [facility] [address] [place] [address], [id number], 05/18/2024 08:57:15 05/18/20 24 05/18/2024 COMPL ETE BLOOD COUNT RDW 14.2 % 11.0-1 5.0 normal Not Available [facility] [address] [place] [address], [address], 05/18/2024 08:57:15 05/18/2005/18/2024 COMPL ETE BLOOD COUNT MPV 7.2 fL 6.2-10 .5 normal Not Available [facility] [address] [place] [address], [id number], 05/18/2024 08:57:15 05/18/20 24 05/18/2024 COMPL ETE BLOOD COUNT platelet count 253 10*3/ uL 150-40 0 normal Not Available [facility] [address] [place] [address], [id number], 05/18/2024 08:57:15 05/18/20 24 05/18/2024 COMPL ETE BLOOD COUNT neutrophil,a bsolute 1.5 10*3/ uL 1.6-8. 4 low Not Available [facility] [address] [place] [address], [id number], 05/18/2024 08:57:15 05/18/20 24 05/18/2024 COMPL ETE BLOOD COUNT lymphocyte,a bsolute 2.2 10*3/ uL 0.4-5. 1 normal Not Available [facility] [address] [place] [address], [id number], 05/18/2024 08:57:15 05/18/20 24 05/18/2024 COMPL ETE BLOOD COUNT monocyte,abs olute 0.5 10*3/ uL 0.0-1. 2 normal Not Available [facility] [address] [place] [address], [id number], 05/18/2024 08:57:15 05/18/20 24 05/18/2024 COMPL ETE BLOOD COUNT eosinophil,a bsolute 0.1 10*3/ uL 0.0-0. 8 normal Not Available [facility] [address] [place] [address], [id number], 05/18/2024 08:57:15 05/18/20 24 05/18/2024 COMPL ETE BLOOD COUNT basophil,abs olute 0.0 10*3/ uL 0.0-0. 3 normal Smear revie wed to confi rm cell morph ology . Not Available [facility] [address] [place] [address], [address], 05/18/2024 08:57:15 05/18/20 24 05/18/2024 COMPL ETE BLOOD COUNT % neutrophils 34.3 % 42.0-7 8.0 low Not Available [facility] [address] [place] [address], [address], 05/18/2024 08:57:15 05/18/20 24 05/18/2024 COMPL ETE BLOOD COUNT % lymphocytes 52.7 % 11.0-4 7.0 high Not Available [facility] [address] [place] [address], [id number], 05/18/2024 08:57:15 05/18/20 24 05/18/2024 COMPL ETE BLOOD COUNT % monocytes 10.6 % 0.0-11 .0 normal Not Available [facility] [address] [place] [address], [address], 05/18/2024 08:57:15 05/18/20 24 05/18/2024 COMPL ETE BLOOD COUNT % eosinophils 1.4 % 0.0-7. 0 normal Not Available [facility] [address] [place] [address], [address], 05/18/2024 08:57:15 05/18/20 24 05/18/2024 COMPL ETE BLOOD COUNT % basophils 1.0 % 0.0-3. 0 normal Not Available [facility] [address] [place] [address], [address], 05/18/2024 08:57:15 05/18/20 24 05/18/2024 COMPL ETE BLOOD COUNT nucleated red cells 0.1 % 0.0-0. 9 normal Not Available [facility] [address] [place] [address], [id number], 05/18/2024 08:57:15 05/18/2005/18/2024 COMPL ETE BLOOD COUNT nucleated RBCs, absolute 0.00 10*3/ uL not estab. normal Not Available [facility] [address] [place] [address], [id number], 05/18/2024 08:57:15 05/18/20 24 05/18/2024 MORPH OLOGY RBC morphology NORMAL normal Not Available [facility] [address] [place] [address], [id number], 05/18/2024 08:57:17 05/18/20 24 05/18/2024 MORPH OLOGY platelet morphology NORMAL normal Not Available [facility] [address] [place] [address], [id number], 05/18/2024 08:57:17 05/18/2005/18/2024 C REACT AYALA PROTE IN C reactive protein 0.26 mg/dL 0.00-0 .49 normal Not Available [facility] [address] [place] [address], [address], 05/18/2024 09:01:31 05/18/20 24 05/18/2024 COMP. METAB OLIC PANEL glucose 93 mg/dL 74-100 normal Not Available [facility] [address] [place] [address], [address], 05/18/2024 09:01:34 05/18/20 24 05/18/2024 COMP. METAB OLIC PANEL blood urea nitrogen 12 mg/dL 6-20 normal Not Available [facility] [address] [place] [address], [address], 05/18/2024 09:01:34 05/18/20 24 05/18/2024 COMP. METAB OLIC PANEL creatinine 0.64 mg/dL 0.50-0 .95 normal Not Available [facility] [address] [place] [address], [address], 05/18/2024 09:01:34 05/18/20 24 05/18/2024 COMP. METAB OLIC PANEL BUN/creatini ne ratio 19 (calc ) 10-20 normal Not Available [facility] [address] [place] [address], [address], 05/18/2024 09:01:34 05/18/20 24 05/18/2024 COMP. METAB OLIC PANEL sodium 139 mmol/ L 136-14 5 normal Not Available [facility] [address] [place] [address], [address], 05/18/2024 09:01:34 05/18/20 24 05/18/2024 COMP. METAB OLIC PANEL potassium 3.8 mmol/ L 3.4-5. 0 normal Not Available [facility] [address] [place] [address], [id number], 05/18/2024 09:01:34 05/18/20 24 05/18/2024 COMP. METAB OLIC PANEL chloride 102 mmol/ L 98-107 normal Not Available [facility] [address] [place] [address], [address], 05/18/2024 09:01:34 05/18/20 24 05/18/2024 COMP. METAB OLIC PANEL carbon dioxide 26 mmol/ L 22-31 normal Not Available [facility] [address] [place] [address], [address], 05/18/2024 09:01:34 05/18/20 24 05/18/2024 COMP. METAB OLIC PANEL anion gap 11 (calc ) 7-25 normal Not Available [facility] [address] [place] [address], [address], 05/18/2024 09:01:34 05/18/20 24 05/18/2024 COMP. METAB OLIC PANEL calcium 9.0 mg/dL 8.6-10 .2 normal Not Available [facility] [address] [place] [address], [address], 05/18/2024 09:01:34 05/18/20 24 05/18/2024 COMP. METAB OLIC PANEL total protein 6.8 g/dL 6.4-8. 3 normal Not Available [facility] [address] [place] [address], [address], 05/18/2024 09:01:34 05/18/20 24 05/18/2024 COMP. METAB OLIC PANEL albumin 4.0 g/dL 3.5-5. 2 normal Not Available [facility] [address] [place] [address], [address], 05/18/2024 09:01:34 05/18/20 24 05/18/2024 COMP. METAB OLIC PANEL globulin 2.8 1.5-4. 5 normal Not Available [facility] [address] [place] [address], [address], 05/18/2024 09:01:34 05/18/20 24 05/18/2024 COMP. METAB OLIC PANEL albumin/glob ulin ratio 1.4 (calc ) 1.1-2. 5 normal Not Available [facility] [address] [place] [address], [address], 05/18/2024 09:01:34 05/18/20 24 05/18/2024 COMP. METAB OLIC PANEL bilirubin, total 0.3 mg/dL 0.1-1. 2 normal Not Available [facility] [address] [place], [address], 05/18/2024 09:01:34 05/18/20 24 05/18/2024 COMP. METAB OLIC PANEL alkaline phosphatase 96 U/L 30-121 normal Not Available [facility] [address] [place], [address], 05/18/2024 09:01:34 05/18/20 24 05/18/2024 COMP. METAB OLIC PANEL AST 19 U/L 0-32 normal Not Available [facility] [address] [place] [address], [address], 05/18/2024 09:01:34 05/18/20 24 05/18/2024 COMP. METAB OLIC PANEL ALT 14 U/L 0-33 normal Not Available [facility] [address] [place], [address], 05/18/2024 09:01:34 05/18/20 24 05/18/2024 COMP. METAB OLIC PANEL GFR 101 >= 60 normal NOT E New calcu latio n for GFR (CKD- EPI 2020) is formu lated witho ut race adjus [facility] Ne[facility]r [facility]logy . This calcu latio n has not been valid ated in pregn ant women . For pedia tric patie nts refer to https ://azeem verma.o rg/pr ofess ional s/KDO QI/gf r_cal culat orPed Not Available [facility] [address] [place], [address], 05/18/2024 09:01:34 05/18/20 24 05/18/2024 ESR, AUTOM ATED ESR, automated 4 mm 0-29 normal Not Available [facility] [address] [place], [address], 05/18/2024 13:31:35 06/07/20 25 06/07/2025 COMPL ETE BLOOD COUNT white blood cells 5.4 10*3/ uL 3.8-10 .8 normal Not Available [facility] [address] [place] [address], [address], 06/07/2025 20:10:17 06/07/20 25 06/07/2025 COMPL ETE BLOOD COUNT red blood cells 4.23 10*6/ uL 3.80-5 .20 normal Not Available [facility] [address] [place] [address], [address], 06/07/2025 20:10:17 06/07/20 25 06/07/2025 COMPL ETE BLOOD COUNT hemoglobin 13.5 g/dL 12.0-1 6.0 normal Not Available [facility] [address] [place] [address], [address], 06/07/2025 20:10:17 06/07/20 25 06/07/2025 COMPL ETE BLOOD COUNT hematocrit 39.8 % 35.0-4 7.0 normal Not Available [facility] [address] [place] [address], [address], 06/07/2025 20:10:17 06/07/20 25 06/07/2025 COMPL ETE BLOOD COUNT MCV 94 fL 80-100 normal Not Available [facility] [address] [place] [address], [address], 06/07/2025 20:10:17 06/07/20 25 06/07/2025 COMPL ETE BLOOD COUNT MCH 32 pg 26-35 normal Not Available [facility] [address] [place] [address], [address], 06/07/2025 20:10:17 06/07/20 25 06/07/2025 COMPL ETE BLOOD COUNT MCHC 34 g/dL 32-36 normal Not Available [facility] [address] [place] [address], [address], 06/07/2025 20:10:17 06/07/20 25 06/07/2025 COMPL ETE BLOOD COUNT RDW 13.8 % 11.0-1 5.0 normal Not Available [facility] [address] [place] [address], [address], 06/07/2025 20:10:17 06/07/20 25 06/07/2025 COMPL ETE BLOOD COUNT MPV 7.9 fL 6.2-10 .5 normal Not Available [facility] [address] [place] [address], [address], 06/07/2025 20:10:17 06/07/20 25 06/07/2025 COMPL ETE BLOOD COUNT platelet count 303 10*3/ uL 150-40 0 normal Not Available [facility] [address] [place] [address], [address], 06/07/2025 20:10:17 06/07/20 25 06/07/2025 COMPL ETE BLOOD COUNT neutrophil,a bsolute 3.3 10*3/ uL 1.6-8. 4 normal Not Available [facility] [address] [place] [address], [address], 06/07/2025 20:10:17 06/07/20 25 06/07/2025 COMPL ETE BLOOD COUNT lymphocyte,a bsolute 1.7 10*3/ uL 0.4-5. 1 normal Not Available [facility] [address] [place] [address], [address], 06/07/2025 20:10:17 06/07/20 25 06/07/2025 COMPL ETE BLOOD COUNT monocyte,abs olute 0.4 10*3/ uL 0.0-1. 2 normal Not Available [facility] [address] [place] [address], [address], 06/07/2025 20:10:17 06/07/20 25 06/07/2025 COMPL ETE BLOOD COUNT eosinophil,a bsolute 0.1 10*3/ uL 0.0-0. 8 normal Not Available [facility] [address] [place] [address], [address], 06/07/2025 20:10:17 06/07/20 25 06/07/2025 COMPL ETE BLOOD COUNT basophil,abs olute 0.0 10*3/ uL 0.0-0. 3 normal Not Available [facility] [address] [place] [address], [address], 06/07/2025 20:10:17 06/07/20 25 06/07/2025 COMPL ETE BLOOD COUNT % neutrophils 60.3 % 42.0-7 8.0 normal Not Available [facility] [address] [place] [address], [address], 06/07/2025 20:10:17 06/07/20 25 06/07/2025 COMPL ETE BLOOD COUNT % lymphocytes 30.7 % 11.0-4 7.0 normal Not Available [facility] [address] [place] [address], [address], 06/07/2025 20:10:17 06/07/20 25 06/07/2025 COMPL ETE BLOOD COUNT % monocytes 6.9 % 0.0-11 .0 normal Not Available [facility] [address] [place] [address], [address], 06/07/2025 20:10:17 06/07/20 25 06/07/2025 COMPL ETE BLOOD COUNT % eosinophils 1.7 % 0.0-7. 0 normal Not Available [facility] [address] [place] [address], [address], 06/07/2025 20:10:17 06/07/20 25 06/07/2025 COMPL ETE BLOOD COUNT % basophils 0.4 % 0.0-3. 0 normal Not Available [facility] [address] [place] [address], [address], 06/07/2025 20:10:17 06/07/20 25 06/07/2025 COMPL ETE BLOOD COUNT nucleated red cells 0.0 % 0.0-0. 9 normal Not Available [facility] [address] [place] [address], [address], 06/07/2025 20:10:17 06/07/20 25 06/07/2025 COMPL ETE BLOOD COUNT nucleated RBCs, absolute 0.00 10*3/ uL not estab. normal Not Available [facility] [address] [place] [address], [address], 06/07/2025 20:10:17 06/07/20 25 06/07/2025 ESR, AUTOM ATED ESR, automated 12 mm 0-29 normal Not Available [facility] [address] [place] [address], [address], 06/07/2025 20:55:34 06/07/20 25 06/07/2025 COMP. METAB OLIC PANEL glucose 124 mg/dL 74-100 high Not Available [facility] [address] [place] [address], [address], 06/07/2025 21:43:21 06/07/20 25 06/07/2025 COMP. METAB OLIC PANEL blood urea nitrogen 8 mg/dL 6-20 normal Not Available [facility] [address] [place] [address], [phone], 06/07/2025 21:43:21 06/07/20 25 06/07/2025 COMP. METAB OLIC PANEL creatinine 0.88 mg/dL 0.50-0 .95 normal Not Available [facility] [address] [place] [address], [address], 06/07/2025 21:43:21 06/07/20 25 06/07/2025 COMP. METAB OLIC PANEL BUN/creatini ne ratio 9 (calc ) 10-20 low Not Available [facility] [address] [place] [address], [address], 06/07/2025 21:43:21 06/07/20 25 06/07/2025 COMP. METAB OLIC PANEL sodium 143 mmol/ L 136-14 5 normal Not Available [facility] [address] [place] [address], [address], 06/07/2025 21:43:21 06/07/20 25 06/07/2025 COMP. METAB OLIC PANEL potassium 3.9 mmol/ L 3.4-5. 0 normal Not Available [facility] [address] [place] [address], [phone], 06/07/2025 21:43:21 06/07/20 25 06/07/2025 COMP. METAB OLIC PANEL chloride 104 mmol/ L 98-107 normal Not Available [facility] [address] [place] [address], [address], 06/07/2025 21:43:21 06/07/20 25 06/07/2025 COMP. METAB OLIC PANEL carbon dioxide 25 mmol/ L 22-31 normal Not Available [facility] [address] [place] [address], [address], 06/07/2025 21:43:21 06/07/20 25 06/07/2025 COMP. METAB OLIC PANEL anion gap 14 (calc ) 7-25 normal Not Available [facility] [address] [place] [address], [address], 06/07/2025 21:43:21 06/07/20 25 06/07/2025 COMP. METAB OLIC PANEL calcium 9.3 mg/dL 8.6-10 .2 normal Not Available [facility] [address] [place] [address], [address], 06/07/2025 21:43:21 06/07/20 25 06/07/2025 COMP. METAB OLIC PANEL total protein 7.1 g/dL 6.4-8. 3 normal Not Available [facility] [address] [place] [address], [address], 06/07/2025 21:43:21 06/07/20 25 06/07/2025 COMP. METAB OLIC PANEL albumin 4.2 g/dL 3.5-5. 2 normal Not Available [facility] [address] [place] [address], [phone], 06/07/2025 21:43:21 06/07/20 25 06/07/2025 COMP. METAB OLIC PANEL globulin 2.9 1.5-4. 5 normal Not Available [facility] [address] [place] [address], [address], 06/07/2025 21:43:21 06/07/20 25 06/07/2025 COMP. METAB OLIC PANEL albumin/glob ulin ratio 1.4 (calc ) 1.1-2. 5 normal Not Available [facility] [address] [place] [address], [address], 06/07/2025 21:43:21 06/07/20 25 06/07/2025 COMP. METAB OLIC PANEL bilirubin, total 0.5 mg/dL 0.1-1. 0 normal NOTE: New refer ence range . Not Available [facility] [address] [place] [address], [address], 06/07/2025 21:43:21 06/07/20 25 06/07/2025 COMP. METAB OLIC PANEL alkaline phosphatase 95 U/L 30-121 normal Not Available [facility] [address] [place] [address], [address], 06/07/2025 21:43:21 06/07/20 25 06/07/2025 COMP. METAB OLIC PANEL AST 26 U/L 0-32 normal Not Available [facility] [address] [place] [address], [address], 06/07/2025 21:43:21 06/07/20 25 06/07/2025 COMP. METAB OLIC PANEL ALT 19 U/L 0-33 normal Not Available [facility] [address] [place], [address], 06/07/2025 21:43:21 06/07/20 25 06/07/2025 COMP. METAB OLIC PANEL eGFR 75 >= 60 normal NOT E New calcu latio n for GFR (CKD- EPI 2020) is formu lated witho ut race adjus tment facto rs at the recom menda tion of the Natio nal Kidne y Found ation and Ameri can Socie ty of Nephr ology . This calcu latio n has not been valid ated in pregn ant women . For pedia margy patie nts refer to https ://azeem verma.o rg/pr manav calhoun s/KDO QI/gf r_cal culat orPed Not Available [facility] [address] [place] [address], [address], 06/07/2025 21:43:21 06/07/20 25 06/07/2025 CREAT INE KINAS E creatine kinase 156 U/L 0-169 normal Not Available [facility] [address] [place] [address], [address], 06/07/2025 21:43:22 06/07/20 25 06/07/2025 C REACT AYALA PROTE IN C reactive protein 0.51 mg/dL 0.00-0 .49 high Not Available [facility] [address] [place] [address], [address], 06/07/2025 21:43:24 06/07/20 25 06/07/2025 TSH WITH REFLE X FT4 TSH with reflex FT4 1.210 u[IU] /mL 0.270- 4.200 normal Not Available [facility] [address] [place] [address], [address], 06/07/2025 22:09:49 03/18/20 24 03/18/2024 XR, chest , [address] [address] Samara mullins Name: AUDREY mullins : 1964 Samara mullins Orderi valencia Cancino er: HUDSON VILLEGAS EXAM DATE: 2023 EXAM: [...] Tulio Cochran MD on 024 3:15 PM [email or web address] [address], [address], 03/25/2024 11:25:34 04/10/20 24 01/22/2024 MRI proce dure (PROC ) No observ ation record ed. [email or web address] Not Available 2023 16:18:41 04/10/20 24 11/26/2023 MRI, ankle , w/o contr ast No observ ation record ed. BARCODE Not Available 2023 13:28:19 Result Notes Documentation Provider Name and Address Organization Details Recorded Time Xr, Chest, 2 View : [address] [address] Patient Name: AUDREY ACOSTA Patient : 1965 Patient Ordering Provider: HUDSON FREED EXAM DATE: 03/18/2024 EXAM: XR CHEST PA/LAT CLINICAL INFORMATION: Physical exam IMAGES PROVIDED: PA and lateral views of the chest. COMPARISON: None. FINDINGS: Heart size is within normal limits. Lung main are clear. IMPRESSION: No acute cardiopulmonary changes. Interpreted By: Tulio Cochran MD [facility] 03/25/2024 11:25:34 Problems Name Problem SNOMED Code Status Onset Date Resolution Date Notes Provider Name and Address Organization Details Recorded Time Migraine with aura 1184943 Active 05/25/ 2016 From Automated Load;Provi muna: Elizabeth Hendrix;Stat us: Active Not Available [facility] 6 08:40:00 Problem Notes None recorded. Procedures Surgical History Date Name Laterality Status Provider Name and Address Organization Details Recorded Time Tubal Ligation completed Suman Burnett [facility] 09/25/2016 15:36:30 Imaging Results None recorded. Procedure Notes None recorded. Medical Equipment None Reported. Allergies Allergen ID Allergen Name Allergen Category Reaction Reaction Severity Criticality Documentation Date Start Date Code Code System Note Provider Name and Address Organization Details Recorded Time 61190901 ciproflox acin medicatio n Not available Not available Not available 09/27/2016 2551 RxNorm Jacqueline Aguirreuyen SCOTT alves [facility] 7 10:44:55 Medications Name Sig Start Date [...] Recorded Body weight Heart rate Oxygen saturation Systolic And Diastolic Provider Name and Address Organization Details Last Updated DateTime 09/02/2024 42485.4 g 86 /min 96 % 110/80 mm[Hg] [facility] 09/02/2024 08:21:33 Date Recorded Body height Body mass index (BMI) Body weight Systolic And Diastolic Provider Name and Address Organization Details Last Updated DateTime 09/16/2019 167.64 cm 31.3 kg/m2 80769.92 g 122/72 mm[Hg] John Trores [facility] 09/16/2019 14:30:41 Date Recorded Body weight Heart rate Oxygen saturation Systolic And Diastolic Provider Name and Address Organization Details Last Updated DateTime 03/18/2024 89889.4 g 94 /min 97 % 118/80 mm[Hg] [facility] 03/18/2024 13:05:24 Date Recorded Body weight Heart rate Oxygen saturation Systolic And Diastolic Provider Name and Address Organization Details Last Updated DateTime 04/14/2024 51411.17 g 89 /min 98 % 122/80 mm[Hg] Demi Covarrubias [facility] 04/14/2024 08:10:25 Date Recorded Body weight Body mass index (BMI) Body height Respiratory rate Heart rate Oxygen saturation Systolic And Diastolic Provider Name and Address Organization Details Last Updated DateTime 5 87146.3 6 g 34.7 kg/m2 167.64 cm 14 /min 85 /min 98 % 128/76 mm[Hg] Amira Torres [facility] 5 15:35:46 Social History Question Answer Notes LastModified by Organizat ion Details LastModified Time Tobacco Smoking Status Former Smoker 20+ YEARS AGO Suman Guadarrama [facility] 09/25/2016 15:35:45 Marital Status Information not available 09/25/2016 What Was The Date Of Your Most Recent Tobacco Screening? 06/07/2025 [email or web address] Information not available 06/07/2025 How Much Tobacco Do You Smoke? No [email or web address] Information not available 04/02/2017 Sex: Unknown Functional Status Question Answer Note LastModified by Organization D etails LastModified Time What is your level of alcohol consumption? None [email or web address] Information not available 09/25/2016 What is your occupation? [employer] [email or web address] Information not available 09/25/2016 Mental Status None recorded. Family History Relationship Description Onset Age of this Age Resolved Age Notes LastModified by Organization Details LastModified Time Mother Hypertensive disorder Not available 2016 15:35:25 Medical History Condition [...] split virus, quadrivalent, preservative 7 completed [facility] 09/30/2017 15:23:05 Tdap 1 completed Not Available [facility] 06/07/2025 14:58:23 Influenza, split virus, quadrivalent, PF 3 completed Not Available [facility] 06/07/2025 14:58:23 MMR 4 completed Not Available [facility] 06/07/2025 14:58:23 Influenza, split virus, quadrivalent, PF 5 completed Not Available [facility] 06/07/2025 14:58:23 influenza, unspecified formulation 8 completed Anat Ocasio [facility] 06/25/2018 15:42:59 Influenza, split virus, quadrivalent, preservative 6 completed Jacqueline Ashton [facility] 09/27/2016 10:45:38 Past Encounters Encounter ID Performer Location Encounter Start Date Encounter Closed Date Diagnosis/Indication Diagnosis SNOMED-CT Code Diagnosis ICD10 Code Diagnosis IMO Codes Diagnosis Note [id number] ELIZABETH HENDRIX MD [facility]UROLOGY [facility] [address] [address] [address] [place] [address] 2 09/27/2016 10:17:44 09/27/2016 11:31:26 Migraine with aura 6938967 G43.109 Polymyalgi a rheumatica 83398711 M35.3 Long-term drug therapy 769944284 Z79.798 [id number] ELIZABETH HENDRIX MD NEUROLOGY [place] [facility] [address] [address] [place] [address] 04/02/2017 15:13:47 04/03/2017 07:59:39 Migraine with aura 5471803 G43.109 Rheumatoid arthritis 698 96655 M06.9 [id number] ELIZABETH HENDRIX MD NEUROLOGY [place] [facility] [address] [place] [address] 09/30/2017 15:19:22 09/30/2017 16:20:03 Migraine without aura 39737334 G43.398 [id number] ELIZABETH HENDRIX MD NEUROLOGY [place] [facility] [address] [place] [address] 04/08/2018 15:31:27 04/08/2018 16:56:50 Essential hypertension 04845989 I10 Migraine with aura 97988 06 G43.109 Migraine without aura 56 060762 G43.460 [id number] ELIZABETH HENDRIX MD NEUROLOGY [place] [facility] [address] [place] [address] 2 04/15/2018 08:09:35 04/15/2018 08:59:44 Migraine without aura 50521834 G43.523 [id number] ELIZABETH HENDRIX MD NEUROLOGY [place] [facility] [address] [address] [place] [address] 2 06/25/2018 15:41:54 06/25/2018 17:03:34 Migraine with aura 7921186 G43.109 Long-term drug therapy 366074242 Z79.899 Rheumatoid arthritis 698 50813 M06.9 [id number] ELIZABETH HENDRIX MD NEUROLOGY [place] [facility] [address] [address] [place] [address] 2 12/23/2018 15:53:32 12/23/2018 16:29:29 Migraine with aura 7473722 G43.109 Migraine without aura 56 845611 G43.315 [id number] ELIZABETH HENDRIX MD NEUROLOGY [place] [address] [address] [place] [address] 09/16/2019 13:59:15 09/16/2019 15:21:03 Migraine with aura 7960375 G43.109 Migraine without aura 56 645538 G43.009 Nausea 789742195 R11.0 [id number] HUDSON FREED MD RHEUMATOL OGY [address] [place] [address] 03/18/2024 12:43:04 03/19/2024 04:08:48 Seropositive rheumatoid arthritis 291533498 M05.9 + RF 254.8, - CCP, - direct PEDRO, - SSA/SSB Previously did well on hydroxychl oroquine 200 mg BID when following with [facility] - continue hydroxychl oroquine 200 mg BID- wean prednisone to 5 mg daily for 1 week then off- additional labs as below Stomatitis 21974272 K12. 1 Currently improved - continue acyclovir per PCP- will check additional labs as below Malaise and fatigue 2717 65992 R53.81 Bilateral plantar fasciitis 2388557995 6381054 M72.2 Keratoconj unctivitis sicca 583073618 M35.01 - For sicca symptoms, I recommende d conservati ve measures including frequent lubricatio n, avoiding stimulants , and regular dental and ophthalmic exams. Long-term drug therapy 136934646 Z79.899 - labs every 6 months on current medicaton- yearly eye exams - We discussed the possible side effects of hydroxychl oroquine including headache, nausea, diarrhea, rare retinal pigmentati on, very rare neuromuscu lar toxicity. I recommende d eye exams every 6-12 months to monitor for retinal toxicity [id number] HUDSON FREED MD RHEUMATOL OGY [address] [place] [address] 04/14/2024 08:04:17 04/15/2024 04:53:44 Seropositive rheumatoid arthritis 487300791 M05.9 + RF 254.8, - CCP, - [...] till down to 5 mg daily Stomatitis 22690464 K12. 1 Currently improved - continue acyclovir per PCP- will check additional labs as below Malaise and fatigue 2717 81944 R53.81 Bilateral plantar fasciitis 5063111436 0740970 M72.2 Keratoconj unctivitis sicca 657719922 M35.01 - For sicca symptoms, I recommende d conservati ve measures including frequent lubricatio n, avoiding stimulants , and regular dental and ophthalmic exams. Long-term drug therapy 931980201 Z79.899 - labs again in a month on the leflunomid then every 3 months thereafter - yearly eye exams - We discussed the possible side effects of hydroxychl oroquine including headache, nausea, diarrhea, rare retinal pigmentati on, very rare neuromuscu lar toxicity. I recommende d eye exams every 6-12 months to monitor for retinal toxicity [id number] HUDSON FREED MD RHEUMATOL OGY [address] [place] [address] 09/02/2024 07:41:37 09/03/2024 06:44:35 Seropositive rheumatoid arthritis 216843244 M05.9 + RF 254.8, - CCP, - direct PEDRO, - SSA/SSB Previously did well on hydroxychl oroquine 200 mg BID when following with [facility], but now developing sores in her mouth and lip swelling. I did not appreciate any synovitis while on no immunosupp ression. - stop hydroxychl oroquine- hold leflunomid e 20 mg daily Stomatitis 28731883 K12. 1 Currently improved - continue acyclovir per PCP- will check additional labs as below Malaise and fatigue 2717 90036 R53.81 Bilateral plantar fasciitis 7584400549 4137133 M72.2 Keratoconj unctivitis sicca 854758787 M35.01 - For sicca symptoms, I recommende d conservati ve measures including frequent lubricatio n, avoiding stimulants , and regular dental and ophthalmic exams.- magic mouthwash- consider pilocarpin e [id number] HUDSON FREED MD RHEUMATOL [facility] [address] [place] [address] 06/07/2025 14:54:34 06/09/2025 04:57:05 Keratoconjunctivitis sicca 634163189 M35.01 - For sicca symptoms, I recommende d conservati ve measures including frequent lubricatio n, avoiding stimulants , and regular dental and ophthalmic exams.- magic mouthwash- consider pilocarpin e- will get additional labs as below- will restart hydroxychl oroquine 200 mg BID Seropositi ve rheumatoid arthritis 016759461 M05.9 + RF 254.8, - CCP, - [...] restart hydroxychl oroquine 200 mg BID Stomatitis 82412644 K12. 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 - check [...] mg QHS Taking hig h risk medication [id number] 28290 Z79.723 0806514 - labs every 6 months- yearly eye [...] [place] Member ID Guarantor Name 06/22/2020 2 R [id number] Tulio Acosta [id number] Audrey Acosta 02/25/2024 1 [place] [id number] Satish Acosta [id number] Audrey Acosta 06/10/2025 1 UMR [id number] Audrey Acosta [id number] Audrey Acosta Notes Date Note Type Note Provider Name and Address Organization Details Recorded Time 0 text/html Return Visit 54 year old [...] in medical health ELIZABETH HENDRIX MD [address] [place], [address], [facility] 09/24/2019 22:38:08 4 text/html ROS as [...] more symptoms and she was referred to [facility]. She says her symptoms started [...] about a month ago. HUDSON FREED MD [address] [place] [address] [place], [address], [facility] 03/18/2024 13:41:12 4 text/html ROS as [...] more symptoms and she was referred to [facility]. She says her symptoms started [...] to take oral acyclovir. HUDSON FREED MD [facility] [place], [address], [facility] 04/14/2024 08:41:40 5 text/html [...] more symptoms and she was referred to [facility]. She says her symptoms started [...] to take oral acyclovir. HUDSON FREED MD [address] [place] [address], [phone], [facility] 09/02/2024 09:25:52 text/html ROS as noted in the HPI [...] note prior to signature. HUDSON FREED MD [facility] [place], [address], [facility] 06/08/2025 06:39:40 OBGyn Episode No OBEpisode recorded.
--- OUTSIDE RECORDS SUMMARY | 2025-07-03 12:50 | XMS_ITS | Clinical Summary ---
Author Organization [facility] Address [address] 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
== END 2025-07-03 23:59 | disposition home or self-care (01) ==
LOC: RAD 12:47
PROVIDERS: PCP Nurse Practitioner Family; Visit Provider Physician Assistant
DX: M17.11 Unilateral primary osteoarthritis, right knee (principal)
CPT/HCPCS: 73562